=== PATIENT | female | born 1975 ===

== ENCOUNTER 2022-04-24 07:25 | Outpatient (REF) | payer OTHER, SELFPAY ==
[2022-04-24 07:39] LABS: MANUAL DIFF FLAG NO
[2022-04-24 08:06] LABS: Basophils Absolute Auto 0.1 X10*3/uL (0.0-0.2); Basophils Percent Auto 1.2 % (0-2); Eosinophils Absolute Auto 0.2 X10*3/uL (0.0-0.4); Hematocrit 40.8 % (37.0-47.0); Hemoglobin 12.8 g/dl (12.0-16.0); Imm Gran Abs Auto 0.03 X10*3/uL (0.00-0.03); Imm Gran Pct Auto 0.4 % (0.0-0.4); Lymphocytes Absolute Auto 2.2 X10*3/uL (1.2-4.9); Lymphocytes Percent Auto 29.7 % (20-40); Mean Corpuscular HGB Conc 31.4 g/dl (31.0-35.0); Mean Corpuscular Hemoglobin 24.8 pg (27.0-33.0); Mean Corpuscular Volume 78.9 fL (80.0-98.0); Mean Platelet Volume 11.1 fL (9.4-12.3); Monocytes Absolute Auto 0.5 X10*3/uL (0.1-1.2); Monocytes Percent Auto 6.7 % (2-11); Neutrophils Absolute Auto 4.4 x10*3/uL (2.0-8.3); Platelet Count 314 X10*3/uL (160-400); Red Blood Count 5.17 X10*6/uL (4.20-5.50); Red Cell Distribution Width 20.6 % (11.0-16.0); White Blood Count 7.4 X10*3/uL (4.8-10.8)
[2022-04-24 09:03] LABS: Alanine Aminotransferase 16 U/L (0-31); Albumin Level 4.2 g/dL (3.5-5.0); Alkaline Phosphatase 72 U/L (39-117); Anion Gap 11 (12-20); Aspartate Amino Transferase 14 U/L (5-31); Bilirubin Total 0.4 mg/dL (0.0-1.0); Blood Urea Nitrogen 14 mg/dL (9-16); Calcium 9.6 mg/dL (8.4-10.2); Carbon Dioxide 24 mmol/L (22-29); Chloride 107 mmol/L (96-108); Cholesterol 156 mg/dL; Estimated Glomerular Filt Rate > 60; Glucose Fasting 104 mg/dL (60-99); HDL Cholesterol 47 mg/dL; Iron 47 mcg/dL (30-160); LDL Cholesterol Calculated 93 mg/dl; Percent Iron Saturation 16 % (15-50); Potassium 4.4 mmol/L (3.3-5.1); Sodium 138 mmol/L (135-145); Thyroid Stimulating Hormone 0.75 uIU/mL (0.32-4.0); Total Iron Binding Capacity 302 mcg/dL (228-428); Total Protein 7.1 g/dL (6.5-8.0); Triglycerides 83 mg/dL; Unsaturated Iron Binding 255 ug/dL; Vitamin D 25-OH Total 26.8 ng/mL (>30)
[2022-04-24 09:18] LABS: Folate 10.4 ng/mL (> or = 4.0); Vitamin B12 411 pg/mL (200-900)
[2022-04-28 18:58] LABS: Thyroglobulin Antibodies 370 IU/mL (< or = 1); Thyroid Peroxidase Antibodies 30 IU/mL (<9)
[2022-04-30 00:38] LABS: Intrinsic Factor Antibodies Positive (Negative)
[2022-04-30 13:32] LABS: Parietal Cell Antibody 72.5 Unit (<=20.0)
== END 2022-04-24 07:26 | disposition home or self-care (01) ==
LOC: HO.LAB 07:25
PROVIDERS: PCP Internal Medicine; Visit Provider Internal Medicine
DX: E66.9 Obesity, unspecified (principal); D50.9 Iron deficiency anemia, unspecified; E03.9 Hypothyroidism, unspecified; G47.00 Insomnia, unspecified; E53.8 Deficiency of other specified B group vitamins; E55.9 Vitamin D deficiency, unspecified
CPT/HCPCS: 36415; 80053; 80061; 82306; 82607; 82746; 83516; 83540; 84439; 84443; 85025; 86340; 86376; 86800

== ENCOUNTER 2022-07-29 13:53 | Outpatient (REF) | payer OTHER, SELFPAY ==
--- NOTE | ~2022-07-29 | US_ITS ---
EXAMINATION: US THYROID CLINICAL INFORMATION: Nontoxic goiter, unspecified. COMPARISON: None available. TECHNIQUE: Linear transducer grayscale and color Doppler examination with attention to the region of the thyroid. FINDINGS: SIZE: Measurements of the thyroid lobes and nodules are given in sagittal, anteroposterior and transverse dimensions respectively. Right Thyroid Lobe: 3.0 x 0.9 x 0.9 cm, volume 1.3 mL. Parenchyma: The gland echotexture is heterogeneous. Thyroid vascularity is normal. Left Thyroid Lobe: 2.6 x 0.8 x 1.1 cm, volume 1.2 mL. Parenchyma: The gland echotexture is heterogeneous. Thyroid vascularity is normal. Isthmus: 0.01 cm in maximum AP dimension. Nodules: No focal thyroid nodule is seen. NODES: No lymphadenopathy is seen in the tissue surrounding the thyroid gland. US/US thyroid IMPRESSION: Atrophic thyroid gland demonstrating heterogeneous echotexture but normal vascularity. No discrete thyroid nodules visualized.
== END 2022-07-29 13:54 | disposition home or self-care (01) ==
LOC: HO.US 13:53
PROVIDERS: PCP Internal Medicine; Visit Provider Internal Medicine
DX: E04.9 Nontoxic goiter, unspecified (principal)
CPT/HCPCS: 76536

== ENCOUNTER 2022-08-15 06:48 | Outpatient (REF) | payer OTHER, SELFPAY ==
--- NOTE | ~2022-08-15 | XR_ITS ---
EXAMINATION: XR CERVICAL SPINE CLINICAL INFORMATION: Neck pain COMPARISON: None available. TECHNIQUE: 3 views of the cervical spine were obtained. FINDINGS: Bone alignment is normal. No fracture or dislocation. Mild degenerative spondylosis and degenerative disc disease at C5-C6. Prevertebral soft tissues are normal. XR/XR cervical spine 2V IMPRESSION: Mild degenerative changes at C5-C6.
== END 2022-08-15 06:49 | disposition home or self-care (01) ==
LOC: HO.XRAY 06:48
PROVIDERS: PCP Internal Medicine; Visit Provider Internal Medicine
DX: M54.2 Cervicalgia (principal)
CPT/HCPCS: 72040

== ENCOUNTER 2022-08-20 08:05 | Outpatient (REF) | payer OTHER, SELFPAY ==
[2022-08-20 09:45] LABS: Folate 6.3 ng/mL (> or = 4.0); Thyroid Stimulating Hormone 0.49 uIU/mL (0.32-4.0); Vitamin B12 439 pg/mL (200-900)
== END 2022-08-20 08:06 | disposition home or self-care (01) ==
LOC: HO.LAB 08:05
PROVIDERS: PCP Internal Medicine; Visit Provider Internal Medicine
DX: E03.9 Hypothyroidism, unspecified (principal); E53.8 Deficiency of other specified B group vitamins
CPT/HCPCS: 36415; 82607; 82746; 84443

== ENCOUNTER 2022-11-26 16:31 | Outpatient (AMB) | payer OTHER, SELFPAY ==
--- NOTE | 2022-11-26 16:32 | MHC.PC.OV ---
Vital Signs 11/26/22 16:33 Height 5 ft 5.75 in Weight 218 lb BMI 35.5 BP 120/86 Blood Pressure Location Lt brachial Position Sitting Intake Visit Reasons: elevated BP Intake Note: Patient here for follow up elevated bp Endocrinology Teacher Required: No Accompanied by: Self / Same As Patient Allergies morphine Adverse Reaction (Severe, Verified 11/26/22 16:35) Rash levothyroxine Adverse Reaction (Intermediate, Verified 11/26/22 16:35) Headache Medication List - Last Reconciled 11/26/22 by Mily Gordon MD albuterol sulfate 90 mcg/actuation 0 mcg inhalation aripiprazole 10 mg PO DAILY 90 days blood pressure monitor As directed buspirone 15 mg PO TID cholecalciferol (vitamin D3) (Vitamin D3) 50 mcg PO DAILY clobetasol 0.05% 1 appl topical DAILY 30 days cyanocobalamin (vitamin B-12) 1,000 mcg IM Q4W 30 days diclofenac sodium 1% 2 grams topical BID hydroxyzine HCl 25 mg PO BEDTIME levothyroxine (Synthroid) 0 mcg PO loratadine 10 mg PO DAILY losartan 25 mg PO DAILY 90 days meclizine 25 mg PO TID naproxen 500 mg PO BID PRN [neck pillow As directed] sertraline 100 mg PO BID sumatriptan succinate 0 mg PO DIRECTED syringe with needle ([employer] Luer Lock Syringe with needle) Use 1 needle once a month underpads (Bed Underpads) As directed Tobacco use date assessed: 05/29/22 Dental Screening Dental Screen Date: 11/26/22 Did you have a dental visit in the last 12 months?: Yes Did you have a dental problem in the last 6 months where you did not have access to dental care?: No Was dental information given to patient?: Patient has dentist HPI HPI Comments History of Present Illness Details This is a 47-year-old female with hypertension, hypothyroidism, mild major depression and low vitamin-D that comes today for follow-up on her conditions. Blood pressure stable TSH will be order for next office visit. Depression well controlled with Abilify. Vitamin-D levels will be check for next office visit. Complains of lumbar pain radiating to the legs. No fever, bowel or bladder incontinence. [facility] Surgical History History of History of cholecystectomy Family History Mother Lung cancer Father Hypercholesteremia Kidney stone Renal failure Family/Other Mental health disorder Social History Housing: House Alcohol intake: never Patient Tobacco Use Status: Never used Tobacco e-Cigarette/Vaping Use: Never Used Second Hand Smoke Exposure: No service: No Current occupational status: unemployed Cognitive needs: No Hearing needs: No Vision needs: Yes Questionnaire Thrive Questionnaire Date Thrive assessed: 05/29/22 MANDY-7 AMB Questionnaire MANDY-7 Date MANDY - 7 assessed: 05/29/22 Source: Developed by Drs. Wilton Caruso, Juliane Sneed, Stefan Ambrose and colleagues, with an educational shawna from [employer]. Review of Systems Const All systems reviewed & are unremarkable except as noted in HPI and below Eyes Reports no additional complaints, Denies change in vision and Denies other visual disturbances Card Denies chest pain at rest, Denies chest pain with activity, Denies edema, Denies irregular heart rhythm, Denies claudication, Denies dyspnea, Denies dyspnea on exertion, Denies orthopnea, Denies paroxysmal nocturnal dyspnea and Denies slow heart rate Resp Denies cough, Denies dyspnea and Denies dyspnea on exertion GI Denies abdominal pain, Denies change in bowel habits, Denies excessive flatus, Denies nausea and Denies vomiting Denies urinary incontinence, Denies urinary hesitancy and Denies urinary urgency Musc Denies abnormal gait, Denies atrophy, Denies deformity and Denies limited range of motion Skin/Breast Denies bleeding lesions, Denies changing lesions and Denies rash Neuro Denies abnormal gait and Denies lack of coordination Physical exam (Primary Care) Vital Signs: Last Vital Signs BP 120/86 11/26/22 16:33 BMI result Body Mass Index 35.5 Tobacco/Smoking Status: Tobacco use Status Tobacco use date assessed 05/29/22 11/26/22 16:39 Patient Tobacco Use Status Never used Tobacco 11/26/22 16:39 e-Cigarette/Vaping Use Never Used 11/26/22 16:39 Thrive Assessment: Date of Thrive Assessment Date Thrive assessed 05/29/22 11/26/22 16:39 Eyes General: appearance normal, both eyes and all related structures Eyelids: Yes eyelids normal Conjunctivae: conjunctivae normal Neck Neck: Yes normal visual inspection and Yes supple Resp Effort & Inspection: normal respiratory effort Auscultation: clear to auscultation bilaterally Cardio Jugular venous distension: no JVD Rate: regular rate Rhythm: regular rhythm Heart sounds: S1 normal heart sound present and S2 normal heart sound present Back/Spine/Pelvis Thoracic/Lumbar Spine: straight leg raise positive Extrem General: Yes full ROM Assessment and Plan Assessment & Plan (1) Essential hypertension: Code(s): I10 - Essential (primary) hypertension Plan: Continue losartan. Blood pressure goal is equal or less than 130/80. (2) Mild recurrent major depression: Code(s): F33.0 - Major depressive disorder, recurrent, mild Plan: Continue Abilify. (3) Hypothyroidism: Comment: [facility] Endocrinology Code(s): E03.9 - Hypothyroidism, unspecified Plan: Continue levothyroxine. (4) Hypovitaminosis D: Code(s): E55.9 - Vitamin D deficiency, unspecified Plan: Continue vitamin-D supplement Orders: Orders Complete Blood Count Auto Diff Today D64.9 - Anemia, unspecified IRON PROFILE Today D64.9 - Anemia, unspecified Vitamin D 25-OH Total Today E55.9 - Vitamin D deficiency, unspecified Vitamin B12 and Folate Today E53.8 - Deficiency of other specified B group vitamins Thyroid Stimulating Hormone Today E03.9 - Hypothyroidism, unspecified Medications: Changed From meclizine 25 mg PO TID To meclizine 25 mg PO TID 30 days 90 tabs 0RF Refilled cyanocobalamin (vitamin B-12) 1,000 mcg IM Q4W 30 days 1 mL 6RF syringe with needle ([employer] Luer Lock Syringe with needle) Use 1 needle once a month 1 ea 6RF D51.0 - Vitamin B12 deficiency anemia due to intrinsic factor deficiency underpads (Bed Underpads) As directed 100 ea 0RF R32 - Unspecified urinary incontinence Coding Level of Care Code Est Pt Level 4 (42757) Diagnoses Essential hypertension I10 Mild recurrent major depression F33.0 Hypothyroidism E03.9 Hypovitaminosis D E55.9 Time Spent (min) 22
[2022-11-26 16:33] VITALS: BP 120/86; BMI 35.5
== END 2022-11-26 16:53 | disposition home or self-care (01) ==
PROVIDERS: PCP Internal Medicine; Visit Provider Internal Medicine
DX: I10 Essential (primary) hypertension (principal); F33.0 Major depressive disorder, recurrent, mild; E03.9 Hypothyroidism, unspecified; E55.9 Vitamin D deficiency, unspecified
CPT/HCPCS: 99214

== ENCOUNTER 2022-12-04 08:21 | Outpatient (AMB) | payer OTHER, SELFPAY ==
--- NOTE | 2022-12-04 08:26 | AM.OFFVISNUR ---
Intake Intake Visit Reasons: B12 Allergies morphine Adverse Reaction (Severe, Verified 11/26/22 16:35) Rash levothyroxine Adverse Reaction (Intermediate, Verified 11/26/22 16:35) Headache Office Meds cyanocobalamin (vitamin B-12) Performing Provider: Mily Gordon MD Administered by: Jacquelyn Hubbard RN on 12/04/22 08:32 Dose Route Admin Location Lot Number Expiration Date [employer] Vapor Coater 1,000 mcg IM [id number] 05/09/25 47055-691-78 DARIANA PAYNE Coding Diagnoses Assessment & Plan Assessment & Plan Orders: Orders AMB Vitamin B12 Injection Patient Supplied Today E53.8 - Deficiency of other specified B group vitamins
== END 2022-12-04 08:31 | disposition home or self-care (01) ==
PROVIDERS: PCP Internal Medicine; Visit Provider Internal Medicine
DX: E53.8 Deficiency of other specified B group vitamins (principal)
CPT/HCPCS: 96372; J3420

== ENCOUNTER 2022-12-04 08:37 | Outpatient (REF) | payer OTHER, SELFPAY ==
--- NOTE | ~2022-12-04 | XR_ITS ---
EXAMINATION: XR LUMBOSACRAL SPINE CLINICAL INFORMATION: Low back pain COMPARISON: None available. TECHNIQUE: Three views of the lumbosacral spine. FINDINGS: Lumbar lordotic straightening. Multilevel spurring. 5 lumbar type vertebral bodies are identified and are maintained in height. Pedicles and SI joints within normal limits. Cholecystectomy clips. XR/XR lumbar spine 2-3V IMPRESSION: Lumbar lordotic straightening and mild degenerative changes.
== END 2022-12-04 08:38 | disposition home or self-care (01) ==
LOC: HO.XRAY 08:37
PROVIDERS: PCP Internal Medicine; Visit Provider Internal Medicine
DX: M54.50 Low back pain, unspecified (principal)
CPT/HCPCS: 72100

== ENCOUNTER 2022-12-18 08:50 | Outpatient (REF) | payer OTHER, SELFPAY ==
--- NOTE | ~2022-12-18 | XR_ITS ---
EXAMINATION: XR BILATERAL KNEES CLINICAL INFORMATION: Reason for Exam M25.562 - Pain in left knee COMPARISON: None TECHNIQUE: 2 views of the bilateral knees FINDINGS: RIGHT KNEE: No acute fracture or dislocation. Joint spaces are maintained. Small suprapatellar joint effusion. Soft tissues are unremarkable. LEFT KNEE: No acute fracture or dislocation. Joint spaces are maintained. Small suprapatellar joint effusion. Soft tissues are unremarkable. XR/XR knee RT 2V IMPRESSION: * No acute osseous abnormality. * Small bilateral suprapatellar effusions.
--- NOTE | ~2022-12-18 | XR_ITS ---
EXAMINATION: XR BILATERAL KNEES CLINICAL INFORMATION: Reason for Exam M25.562 - Pain in left knee COMPARISON: None TECHNIQUE: 2 views of the bilateral knees FINDINGS: RIGHT KNEE: No acute fracture or dislocation. Joint spaces are maintained. Small suprapatellar joint effusion. Soft tissues are unremarkable. LEFT KNEE: No acute fracture or dislocation. Joint spaces are maintained. Small suprapatellar joint effusion. Soft tissues are unremarkable. XR/XR knee LT 2V IMPRESSION: * No acute osseous abnormality. * Small bilateral suprapatellar effusions.
== END 2022-12-18 08:51 | disposition home or self-care (01) ==
LOC: HO.XRAY 08:50
PROVIDERS: PCP Internal Medicine; Visit Provider Internal Medicine
DX: M25.562 Pain in left knee (principal); M25.561 Pain in right knee
CPT/HCPCS: 73560

== ENCOUNTER 2023-01-05 08:32 | Outpatient (AMB) | payer OTHER, SELFPAY ==
--- NOTE | 2023-01-05 09:13 | AM.OFFVISNUR ---
Intake Intake Visit Reasons: B12 Shot Allergies morphine Adverse Reaction (Severe, Verified 11/26/22 16:35) Rash levothyroxine Adverse Reaction (Intermediate, Verified 11/26/22 16:35) Headache Office Meds cyanocobalamin (vitamin B-12) Performing Provider: Mily Gordon MD Administered by: Tami Hernandes RN on 01/05/23 09:20 Dose Route Admin Location Lot Number Expiration Date NDC Panel Machine Operator 1,000 mcg IM right deltoid [id number] 05/10/25 29539-422-77 DARIANA PAYNE Coding Diagnoses Assessment & Plan Assessment & Plan Orders: Orders AMB Vitamin B12 Injection Patient Supplied Today E53.8 - Deficiency of other specified B group vitamins
== END 2023-01-05 09:21 | disposition home or self-care (01) ==
PROVIDERS: PCP Internal Medicine; Visit Provider Internal Medicine
DX: E53.8 Deficiency of other specified B group vitamins (principal)
CPT/HCPCS: 96372; J3420

== ENCOUNTER 2023-02-03 08:08 | Outpatient (AMB) | payer OTHER, SELFPAY ==
--- NOTE | 2023-02-03 08:12 | AM.OFFVISNUR ---
Intake Intake Visit Reasons: B12 Shot Allergies morphine Adverse Reaction (Severe, Verified 11/26/22 16:35) Rash levothyroxine Adverse Reaction (Intermediate, Verified 11/26/22 16:35) Headache Office Meds cyanocobalamin (vitamin B-12) 1,000 mcg/mL injection solution Performing Provider: Mily Gordon MD [facility] Administered by: Jacquelyn Hubbard RN on 02/03/23 08:12 Dose Route Admin Location Dispensed Lot Number Expiration Date [facility] Dual Rate Dealer 1,000 mcg IM right deltoid 1 mL [id number] 04/29/25 25937-005-06 DAIRANA PAYNE Coding Assessment & Plan Assessment & Plan Orders: Orders AMB Vitamin B12 Injection Patient Supplied Today E53.8 - Deficiency of other specified B group vitamins
== END 2023-02-03 08:19 | disposition home or self-care (01) ==
PROVIDERS: PCP Internal Medicine; Visit Provider Internal Medicine
DX: E53.8 Deficiency of other specified B group vitamins (principal)
CPT/HCPCS: 96372; J3420

== ENCOUNTER 2023-02-17 08:48 | Outpatient (REF) | payer OTHER, SELFPAY | END 2023-02-17 08:49 | disposition home or self-care (01) | LOC: HO.LAB 08:48 | PROVIDERS: PCP Internal Medicine; Visit Provider Internal Medicine | DX: E53.8 Deficiency of other specified B group vitamins (principal); D64.9 Anemia, unspecified; E03.9 Hypothyroidism, unspecified; E55.9 Vitamin D deficiency, unspecified | CPT/HCPCS: 36415; 82306; 82607; 82746; 83540; 84443; 85025 ==

== ENCOUNTER 2023-02-24 07:49 | Outpatient (AMB) | payer OTHER, SELFPAY ==
[2023-02-24 07:54] VITALS: BP 122/80; PULSE 63; O2SAT 98; BMI 35.6
--- NOTE | 2023-02-24 07:54 | MHC.PC.OV ---
Vital Signs 02/24/23 07:54 Height 5 ft 5.75 in Weight 219 lb BMI 35.6 BP 122/80 Blood Pressure Location Lt brachial Position Sitting Pulse 63 Pulse Source Pulse Oximeter Pulse Oximetry (%) 98 Oxygen Delivery Method Room Air Intake Visit Reasons: thyroid,vitamin b12 Intake Note: patient here for a follow up thyroid, vitamin b12 Hay Sorter Required: No Accompanied by: Self / Same As Patient Allergies morphine Adverse Reaction (Severe, Verified 02/24/23 07:56) Rash levothyroxine Adverse Reaction (Intermediate, Verified 02/24/23 07:56) Headache Medication List - Last Reconciled 02/24/23 by Mily Gordon MD albuterol sulfate 90 mcg/actuation 0 mcg inhalation aripiprazole 10 mg PO DAILY 90 days blood pressure monitor As directed buspirone 15 mg PO TID cholecalciferol (vitamin D3) (Vitamin D3) 50 mcg PO DAILY cyanocobalamin (vitamin B-12) 1,000 mcg IM Q4W 30 days diclofenac sodium 1% 2 grams topical BID hydroxyzine HCl 25 mg PO BEDTIME levothyroxine (Synthroid) 0 mcg PO loratadine 10 mg PO DAILY losartan 25 mg PO DAILY 90 days meclizine 25 mg PO TID 30 days naproxen 500 mg PO BID PRN [neck pillow As directed] sertraline 100 mg PO BID sumatriptan succinate 0 mg PO DIRECTED syringe with needle ([employer] Luer Lock Syringe with needle) Use 1 needle once a month underpads (Bed Underpads) As directed Tobacco use date assessed: 05/29/22 Dental Screening Dental Screen Date: 02/24/23 Did you have a dental visit in the last 12 months?: Yes Did you have a dental problem in the last 6 months where you did not have access to dental care?: No Was dental information given to patient?: Patient has dentist HPI HPI Comments History of Present Illness Details This is a 47-year-old female with hypertension, mild major depression, pernicious anemia and autoimmune thyroiditis that comes today for follow-up on her conditions. Blood pressure stable. Depression well controlled with SSRIs. Vitamin B12 within normal limits on B12 injections due to her pernicious anemia. TSH also normal. She denies any chest pain or shortness of breath. Complains of neck pain and the pillow that was sent did not solve her problem. Will be referred to rheumatology. [facility] Surgical History History of cholecystectomy History of Family History Mother Lung cancer Father Hypercholesteremia Kidney stone Renal failure Family/Other Mental health disorder Social History Housing: House Alcohol intake: never Patient Tobacco Use Status: Never used Tobacco e-Cigarette/Vaping Use: Never Used Second Hand Smoke Exposure: No service: No Current occupational status: unemployed Cognitive needs: No Hearing needs: No Vision needs: Yes Questionnaire Thrive Questionnaire Date Thrive assessed: 05/29/22 MANDY-7 AMB Questionnaire MANDY-7 Date MANDY - 7 assessed: 05/29/22 Source: Developed by Drs. Wilton Caruso, Juliane Sneed, Stefan Ambrose and colleagues, with an educational shawna from [employer]. Review of Systems Const All systems reviewed & are unremarkable except as noted in HPI and below Eyes Reports no additional complaints, Denies change in vision and Denies other visual disturbances ENT Reports neck pain Card Denies chest pain at rest, Denies chest pain with activity, Denies edema, Denies irregular heart rhythm, Denies claudication, Denies dyspnea, Denies dyspnea on exertion, Denies orthopnea, Denies paroxysmal nocturnal dyspnea and Denies slow heart rate Resp Denies cough, Denies dyspnea and Denies dyspnea on exertion GI Denies abdominal pain, Denies change in bowel habits, Denies excessive flatus, Denies nausea and Denies vomiting Denies urinary incontinence, Denies urinary hesitancy and Denies urinary urgency Musc Denies abnormal gait, Reports back pain, Denies atrophy, Denies deformity, Denies limited range of motion and Reports neck pain Skin/Breast Denies bleeding lesions, Denies changing lesions and Denies rash Neuro Denies abnormal gait and Denies lack of coordination Physical exam (Primary Care) Vital Signs: Last Vital Signs Pulse 63 02/24/23 07:54 BP 122/80 02/24/23 07:54 Pulse Ox 98 02/24/23 07:54 Oxygen Delivery Method Room Air 02/24/23 07:54 BMI result Body Mass Index 35.6 Tobacco/Smoking Status: Tobacco use Status Tobacco use date assessed 05/29/22 02/24/23 07:59 Patient Tobacco Use Status Never used Tobacco 02/24/23 07:59 e-Cigarette/Vaping Use Never Used 02/24/23 07:59 Thrive Assessment: Date of Thrive Assessment Date Thrive assessed 05/29/22 02/24/23 07:59 Eyes General: appearance normal, both eyes and all related structures Eyelids: Yes eyelids normal Conjunctivae: conjunctivae normal Neck Neck: Yes normal visual inspection and Yes supple Resp Effort & Inspection: normal respiratory effort Auscultation: clear to auscultation bilaterally Cardio Jugular venous distension: no JVD Rate: regular rate Rhythm: regular rhythm Heart sounds: S1 normal heart sound present and S2 normal heart sound present Extrem General: Yes full ROM Office Procedures Flu Questionnaire Does the patient have a severe egg allergy?: No Does the patient have severe life threatening allergies?: No Does the patient have a fever or illness today?: No Has the patient ever had Guillain-Wellington Syndrome?: No Has the patient ever had any past reaction to a flu shot?: No Immunizations flu vacc [id number] 6mos up(PF) 60 mcg(15 mcgx4)/0.5 mL IM syringe Performing Provider: Mily Gordon MD [facility] Administered by: BEKAH Amador on 02/24/23 08:31 Dose Route Admin Location Dispensed Lot Number Expiration Date NDC Boarding Mother 0.5 mL IM Right Deltoid 0.5 mL [id number] 11/08/23 23175-510-42 [employer] VIS Given Date VIS Provided VIS Publication Date 02/24/23 Single Vaccine 20 Eligibility Eligibility Date Funding Source Not [facility] Eligible 02/24/23 Private Assessment and Plan Assessment & Plan (1) Essential hypertension: Code(s): I10 - Essential (primary) hypertension Plan: Continue losartan. Blood pressure goal is equal or less than 130/80. (2) Mild recurrent major depression: Code(s): F33.0 - Major depressive disorder, recurrent, mild Plan: Continue SSRIs (3) Pernicious anemia: Code(s): D51.0 - Vitamin B12 deficiency anemia due to intrinsic factor deficiency Plan: Continue vitamin B12 injections. (4) Autoimmune thyroiditis: Code(s): E06.3 - Autoimmune thyroiditis Plan: Continue Synthroid. Orders: Orders Influenza [id number] Immunization Today Z23 - Encounter for immunization Referrals Rheumatology Referral M54.2 - Cervicalgia Allergy & Immunology Referral J30.9 - Allergic rhinitis, unspecified Medications: Changed From diclofenac sodium 1% 2 grams topical BID To diclofenac sodium 1% 2 grams topical BID 100 grams 1RF 30 days From levothyroxine (Synthroid) PO To levothyroxine (Synthroid) 150 mcg PO DAILY 30 tabs 1RF 30 days Refilled cyanocobalamin (vitamin B-12) 1,000 mcg IM Q4W 1 mL 6RF 30 days Coding Level of Care Code Est Pt Level 4 (75265) Diagnoses Essential hypertension I10 Mild recurrent major depression F33.0 Pernicious anemia D51.0 Autoimmune thyroiditis E06.3 Time Spent (min) 24
== END 2023-02-24 09:04 | disposition home or self-care (01) ==
PROVIDERS: Visit Provider Internal Medicine
DX: I10 Essential (primary) hypertension (principal); F33.0 Major depressive disorder, recurrent, mild; D51.0 Vitamin B12 deficiency anemia due to intrinsic factor deficiency; E06.3 Autoimmune thyroiditis; Z23 Encounter for immunization
CPT/HCPCS: 90471; 90686; 99214

== ENCOUNTER 2023-03-05 08:12 | Outpatient (AMB) | payer OTHER, SELFPAY ==
--- NOTE | 2023-03-05 08:45 | AM.OFFVISNUR ---
Intake Intake Visit Reasons: B-12 shot Allergies morphine Adverse Reaction (Severe, Verified 02/24/23 07:56) Rash levothyroxine Adverse Reaction (Intermediate, Verified 02/24/23 07:56) Headache Office Meds cyanocobalamin (vitamin B-12) 1,000 mcg/mL injection solution Performing Provider: Mily Gordon MD Performing Location: [facility] Administered by: Tami Hernandes RN on 03/05/23 08:45 Dose Route Admin Location Dispensed Lot Number Expiration Date [facility] Rib Builder 1,000 mcg IM right deltoid 1 mL [id number] 05/09/25 20336-898-04 DARIANA PAYNE Coding Assessment & Plan Assessment & Plan Orders: Orders AMB Vitamin B12 Injection Patient Supplied Today D51.9 - Vitamin B12 deficiency anemia, unspecified
== END 2023-03-05 08:46 | disposition home or self-care (01) ==
PROVIDERS: PCP Internal Medicine; Visit Provider Internal Medicine
DX: D51.9 Vitamin B12 deficiency anemia, unspecified (principal)
CPT/HCPCS: 96372; J3420

== ENCOUNTER 2023-03-09 12:34 | Outpatient (AMB) | payer OTHER, SELFPAY ==
--- NOTE | 2023-03-09 12:51 | MHC.OFFVIS ---
Intake Vital Signs 03/09/23 12:52 Height 5 ft 5.75 in Weight 219 lb 2.232 oz BMI 35.6 BP 110/70 Blood Pressure Location Rt radial Position Sitting Pulse 58 Pulse Source Pulse Oximeter Temp 97.4 F Temp Source Skin Pulse Oximetry (%) 98 Oxygen Delivery Method Room Air Intake Visit Reasons: Cervicalgia Intake Note: New patient here today referred to us for neck pain. Injection Mold Technician Required: Yes Injection Mold Technician Language: Receiving And Processing Supervisor Name: Guy [id number] Information Interpreted: clinical only Accompanied by: Self / Same As Patient Allergies morphine Adverse Reaction (Severe, Verified 03/09/23 12:54) Rash levothyroxine Adverse Reaction (Intermediate, Verified 03/09/23 12:54) Headache HPI HPI Comments History of Present Illness Details This is a 47-year-old female with medical history of hypertension, mild major depression, pernicious anemia and autoimmune thyroiditis, presents today for evaluation of neck and right shoulder pain. Patient is not able to say what are the associated factors with onset but she has had the pain for at least 1 year. The pain is improved by Tylenol and Naproxen. She has been using a pillow at night, recommended by PCP but it often makes her pain worse. Patient denies other joint pain except for right knee pain. Xrays of her neck, lower back and knee were done. Patient denies Raynaud's phenomenon, butterfly rash on face or other rashes; denies photosensitivity - getting sick or developing a rash from being out in the sun; denies blood or froth in urine; patient denies hx of SOB, chest pain. Patient denies hx of Carditis or Pleuritis. Denies fevers, excessive fatigue, unexplained weight-loss or weight-gain. Denies: thinning hair or hair loss, hx of rashes; Denies: dry, itchy eyes, red burning eyes needing steroids to treat; dry mouth, mouth sores or ulcers; nose bleed; ringing in the ear, Denies abdominal pain, blood or mucous in stool; nausea, vomiting and diarrhea , difficulty swallowing, heartburn. Denies morning stiffness lasting more than 20 mins. Malignancy screening: denies personal cancer hx. [facility] Medical History (Updated 03/09/23 @ 14:35 by JENARO Louis) Obesity (BMI 30-39.9) Degenerative disc disease, lumbar Osteoarthritis involving multiple joints on both sides of body Trapezius muscle strain Shoulder pain, right Surgical History (Updated 03/09/23 @ 12:56 by BEKAH Sepulveda) History of cholecystectomy History of Family History Mother Lung cancer Father Hypercholesteremia Kidney stone Renal failure Family/Other Mental health disorder Sister Lupus Social History (Updated 03/09/23 @ 12:55 by BEKAH Sepulveda) Household Members: Spouse and Children Housing: House Alcohol intake: never Patient Tobacco Use Status: Never used Tobacco e-Cigarette/Vaping Use: Never Used Second Hand Smoke Exposure: No service: No Current occupational status: unemployed and disabled Cognitive needs: No Hearing needs: No Vision needs: Yes Female Reproductive History Menstrual Total pregnancies: 3 Review of Systems Const All systems reviewed & are unremarkable except as noted in HPI and below Physical Exam Vital Signs: Last Vital Signs Temp 97.4 F 03/09/23 12:52 Pulse 58 03/09/23 12:52 BP 110/70 03/09/23 12:52 Pulse Ox 98 03/09/23 12:52 Oxygen Delivery Method Room Air 03/09/23 12:52 BMI result Body Mass Index 35.6 APPEARANCE: Patient in no acute distress EYES no redness, pupils equal and reactive to light, eyelids normal EARS:? External ear normal, canal clear and tympanic membrane normal. NOSE/SINUS:? Airflow through both nares, no nasal discharge, no bleeding THROAT:? Oral mucosa moist, no ulcerations NECK:? No thyromegaly or masses, no adenopathy, trachea midline. HEART:? Regulrar rhythm, S1-S2 heard, no murmurs, rubs or gallops. LUNG:? Clear to percussion and auscultation ABD:? Normal bowel sounds, no organomegaly, masses or tenderness. EXTREMITIES:? No edema, no calf tenderness, normal peripheral pulses. NEURO:? Oriented and alert x3.? No focal weakness.? Reflexes symmetric.? Gait normal. SKIN:? There are no skin lesions evident. No objective signs of Raynaud's phenomenon. JOINT EXAM: Cervical Spine/Neck:.? Full range of motion with mild pain to left trapezius muslce with right lateral flexion. Mild tenderness with palpation to left trapezius muscle extending up pass the nape. Thoracic Spine:.? No scoliosis.? No tenderness on palpation. Lumbar Spine:.? Alignment normal.? Full range of motion without pain, no tenderness. Chest Wall:.? No tenderness, swelling, increased warmth or erythema. Hands:.? Normal pain-free range of motion without tenderness, swelling, increased warmth or erythema. Able to make a full fist and has a good construction representative strength. Wrists:.? Normal pain-free range of motion without tenderness, swelling, increased warmth or erythema. Elbows:. Normal pain-free range of motion without tenderness, swelling, increased warmth or erythema. Shoulders:.?? Full range of motion. mild pain to right side with full flexion, mild tenderness with palpation to trapezius at mid shoulder blade, but no weakness, swelling, increased warmth or erythema. Hips:.? Full range of motion without pain. Hip bursa:.? No tenderness. Knees:.?? Normal range of motion without, swelling, increased warmth or erythema.? There is no effusion or crepitation. Mild tenderness to right pas anserine bursa. Ankles:.? Normal pain-free range of motion without tenderness, swelling, increased warmth or erythema. Feet:.? Normal pain-free range of motion without tenderness, swelling, increased warmth or erythema. Tender points:? No tenderness to digital palpation at the occiput, second rib, lateral epicondyle, knees, greater trochanter and gluteal area bilaterally. Results Reviewed Results Reviewed: Laboratory Tests 02/17/23 09:12 MCH 26.1 L Abs Immat Gran (auto) 0.05 H EXAMINATION: XR BILATERAL KNEES CLINICAL INFORMATION: Reason for Exam M25.562 - Pain in left knee COMPARISON: None TECHNIQUE: 2 views of the bilateral knees FINDINGS: RIGHT KNEE: No acute fracture or dislocation. Joint spaces are maintained. Small suprapatellar joint effusion. Soft tissues are unremarkable. LEFT KNEE: No acute fracture or dislocation. Joint spaces are maintained. Small suprapatellar joint effusion. Soft tissues are unremarkable. XR/XR knee LT 2V IMPRESSION: * No acute osseous abnormality. * Small bilateral suprapatellar effusions. EXAMINATION: XR LUMBOSACRAL SPINE CLINICAL INFORMATION: Low back pain COMPARISON: None available. TECHNIQUE: Three views of the lumbosacral spine. FINDINGS: Lumbar lordotic straightening. Multilevel spurring. 5 lumbar type vertebral bodies are identified and are maintained in height. Pedicles and SI joints within normal limits. Cholecystectomy clips. XR/XR lumbar spine 2-3V IMPRESSION: Lumbar lordotic straightening and mild degenerative changes. EXAMINATION: XR CERVICAL SPINE CLINICAL INFORMATION: Neck pain COMPARISON: None available. TECHNIQUE: 3 views of the cervical spine were obtained. FINDINGS: Bone alignment is normal. No fracture or dislocation. Mild degenerative spondylosis and degenerative disc disease at C5-C6. Prevertebral soft tissues are normal. XR/XR cervical spine 2V IMPRESSION: Mild degenerative changes at C5-C6. Assessment & Plan Assessment & Plan (1) Neck pain: Code(s): M54.2 - Cervicalgia (2) Shoulder pain, right: Code(s): M25.511 - Pain in right shoulder Qualifiers: Chronicity: chronic Qualified Code(s): M25.511 - Pain in right shoulder; G89.29 - Other chronic pain (3) Trapezius muscle strain: Code(s): S46.819A - Strain of other muscles, fascia and tendons at shoulder and upper arm level, unspecified arm, initial encounter Qualifiers: Encounter type: initial encounter Laterality: left Qualified Code(s): S46.812A - Strain of other muscles, fascia and tendons at shoulder and upper arm level, left arm, initial encounter (4) Osteoarthritis involving multiple joints on both sides of body: Code(s): M15.9 - Polyosteoarthritis, unspecified (5) Degenerative disc disease, lumbar: Code(s): M51.36 - Other intervertebral disc degeneration, lumbar region (6) Obesity (BMI 30-39.9): Code(s): E66.9 - Obesity, unspecified Plan #Neck Pain/Right Trapezius muscle strain/Right Shoulder pain: After careful review of history, diagnostics and physical exam, I do not think the patient as an autoimmune or inflammatory pathology that incites her neck pain. The neck/Trapezius pain is mainly due to muscle strain and could be related to sleep positioning. She can continue using Tylenol and Naproxen and topical Diclofenac gel. She is also encouraged to use warm compresses and do stretches to the area. I will refer her to PT for evaluation and treatment. #OA multiple Joints/DDD lumbar Spine. Continue with Tylenol and Naproxen as prescribed. #Obesity: Discussed weightloss and the possible positive effects on joint pain. Patient will return to clinic in three months to assess for PT effectiveness but knows to call the office sooner if needed Orders: Orders PT Evaluation and Treatment Today M25.511 - Pain in right shoulder, M54.2 - Cervicalgia Coding Level of Care Code New Pt Level 4 (15892) Diagnoses Neck pain M54.2 Chronic right shoulder pain M25.511; G89.29 Chronicity: chronic Strain of left trapezius muscle, initial encounter S46.811U Encounter type: initial encounter Laterality: left Osteoarthritis involving multiple joints on both sides of body M15.9 Degenerative disc disease, lumbar M51.36 Obesity (BMI 30-39.9) E66.9
[2023-03-09 12:52] VITALS: BP 110/70; PULSE 58; TEMP 36.3; O2SAT 98; BMI 35.6
== END 2023-03-09 13:28 | disposition home or self-care (01) ==
PROVIDERS: PCP Internal Medicine; Visit Provider Nurse Practitioner Family
DX: M54.2 Cervicalgia (principal); M25.511 Pain in right shoulder; G89.29 Other chronic pain; S46.812A Strain of other muscles, fascia and tendons at shoulder and upper arm level, left arm, initial encounter; M15.9 Polyosteoarthritis, unspecified; M51.36 Other intervertebral disc degeneration, lumbar region; E66.9 Obesity, unspecified
CPT/HCPCS: 99204

== ENCOUNTER → 2023-03-09 12:34 | Outpatient (BNVA) | payer OTHER, SELFPAY | PROVIDERS: PCP Internal Medicine; Visit Provider Nurse Practitioner Family | DX: S46.811A Strain of other muscles, fascia and tendons at shoulder and upper arm level, right arm, initial encounter (principal); M54.2 Cervicalgia; G89.29 Other chronic pain | CPT/HCPCS: 99202 ==

== ENCOUNTER 2023-06-12 09:00 | Outpatient (RCR) | payer OTHER, SELFPAY ==
--- NOTE | 2023-05-19 10:19 | MHC.PT.EP ---
[facility] [place] Office [place] Office [place] Office [address] Jacinto Romano [address] [phone] F: [phone] F: [phone] F: [phone] F: [phone] Physical Therapy Plan of Care Date of Evaluation: 05/19/23 Date of Surgery: Diagnosis: CERVICALGIA, PAIN IN RIGHT SHOULDER, STERNOCLEIDOMASTOID PAIN/ STRAIN/PINCHED NERVE x 1YEAR; ALSO SUGGEST SLEEP HABITS Assessment: 48 YO FEMALE REF TO PT W A 1 YR H/O INSIDUOUS MATILDE CERVICAL PAIN- SHE HAS DIFFIC GETTING COMFORTABLE TO SLEEP- SHE IS DISABLED DUE TO DEPRESSION AND NOTES 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 OBJECTIVE FINDINGS: DECR POSTURAL AWARENESS, CERV AROM LIMITATIONS, STRENGTH DEFICITS POST RC/ SCAPULAR MM, (+) TTP MATILDE UT/ LEV/ SCMD MM, AND (+) PAIN IN MATILDE LOWER CERV AND CERV PS MM. CURRENTLY THE Pt DENIES RADICULAR SXS AND THERE IS (-) SENSORIMOTOR DEFICITS. FUNCTIONALLY, THE Pt IS LIMITED W ADLs REQ CARRYING OBJECTS, PROLONGED CELL PHONE USAGE, SLEEPING, AND ADLs REQ CERV ROTAT Lt OR FLEXION. THE Pt WOULD BENEFIT FROM PT TO ADDRESS THE ABOVE FINDINGS AND GUIDE THE Pt IN PAIN MGMT TECHN, POSTURAL CORRECTION, AND DEV OF A HEP FOR IMPROVED SELF-SX MGMT TECHN. Frequency and Duration: The patient will be seen 2 x WK x 5 WKS Short Term Goals: *DECREASE CERV PAIN TO 3-4/10 *Pt INDEP W SELF POSTURAL CORRECTION IN SITTING, STANDING, AND SLEEPING POSITIONS *WFL CERV AROM FOR ADL PERF W/O PAIN LIMITATIONS Clinical Studies Specialist Goals: *Pt INDEP W PROGRESSIVE HEP AND SELF-SX MGMT TECHN *Pt INCREASE PERF OF REG ADLs EVIDENT W IMPROVED NPDI 8-10 POINTS (AT EVAL ) *WFL STRENGTH MATILDE POST RC/ SCAP MM Treatment Plan: Modalities to reduce pain, spasms and effusion. Manual therapy to restore motion and function. Therapeutic exercise to improve strength and flexibility. Neuromuscular re-education for posture and balance. Therapeutic activities to return to functional activities of daily living. Electronically signed by: LAURA GRULLON,PT Please sign and return to therapist. Thank you for your referral.
--- NOTE | 2023-06-16 15:08 | MHC.PT.DC ---
[facility] [place] Office [place] Office [place] Office [address] Jacinto Romano [address] [phone] F: [phone] F: [phone] F: [phone] F: [phone] Physical Therapy Discharge Report Diagnosis: CERVICALGIA, PAIN IN RIGHT SHOULDER, STERNOCLEIDOMASTOID PAIN/ STRAIN/PINCHED NERVE x 1YEAR; ALSO SUGGEST SLEEP HABITS Date of Surgery: Date of Evaluation: 05/19/23 Date of Discharge: 06/16/23 Treatments to Date: 4 Cancellations to Date: 3 No Shows to Date: 2 Discharge Status: Patient Elected to Stop Visit Non-compliance Discharge Summary: THE Pt HAS BEEN EDUC RE POSTURE, A HEP HAS BEEN INTIIATED, AND HER PAIN WAS MILDLY REDUCED-THE Pt HAD POOR ATTENDANCE FOR SCHED PT APPTS AND IS D/C PER THE DEPT ATTENDANCE POLICY. Electronically signed by: LAURA GRULLON,PT Please sign and return to therapist. Thank you for your referral.
== END 2023-06-16 15:07 | disposition home or self-care (01) ==
LOC: HO.PT 09:00
PROVIDERS: PCP Internal Medicine; Visit Provider Nurse Practitioner Family
DX: M54.2 Cervicalgia (principal); M25.511 Pain in right shoulder
CPT/HCPCS: 97140; 97162; 97530

== ENCOUNTER 2023-08-26 08:05 | Outpatient (AMB) | payer OTHER, SELFPAY ==
--- NOTE | 2023-08-26 08:15 | MHC.PC.OV ---
Vital Signs 08/26/23 08:17 Height 5 ft 5.75 in Weight 219 lb BMI 35.6 BP 130/80 Blood Pressure Location Lt brachial Position Sitting Intake Visit Reasons: PE Intake Note: Patient here for a physical exam Workers Compensation Claims Specialist Required: No Accompanied by: Self / Same As Patient Allergies morphine Adverse Reaction (Severe, Verified 08/26/23 08:38) Rash levothyroxine Adverse Reaction (Intermediate, Verified 08/26/23 08:38) Headache Medication List - Last Reconciled 08/26/23 by Mily Gordon MD albuterol sulfate 90 mcg/actuation 0 mcg inhalation aripiprazole 10 mg PO DAILY 90 days blood pressure monitor As directed buspirone 30 mg PO BID cholecalciferol (vitamin D3) (Vitamin D3) 50 mcg PO DAILY cyanocobalamin (vitamin B-12) 1,000 mcg IM Q4W 30 days diclofenac sodium 1% 2 grams topical BID 30 days fexofenadine 180 mg PO DAILY heating pads As directed hydroxyzine HCl 25 mg PO BEDTIME incontinence pad, liner, disp Use 1 pad once a day loratadine 10 mg PO DAILY losartan 25 mg PO DAILY 90 days meclizine 25 mg PO TID 30 days naproxen 500 mg PO BID PRN [neck pillow As directed] sertraline 100 mg PO BID sumatriptan succinate 0 mg PO DIRECTED Synthroid (levothyroxine) 150 mcg PO DAILY 30 days NS syringe with needle ([employer] Luer Lock Syringe with needle) Use 1 needle once a month triamcinolone acetonide intranasal underpads (Bed Underpads) As directed Tobacco use date assessed: 08/26/23 Dental Screening Dental Screen Date: 08/26/23 Did you have a dental visit in the last 12 months?: No Did you have a dental problem in the last 6 months where you did not have access to dental care?: No Was dental information given to patient?: Patient has dentist HPI HPI Comments History of Present Illness Details This is a 48-year-old female with mild recurrent major depression that comes for her physical exam. Depression has been somewhat stable with Abilify and this is follow by Psychiatry. Last mammogram was 2022 and was normal. Last Pap smear was 2022 at [facility] and it was normal as per patient. Has appointment with Gastroenterology at [facility] soon to schedule colonoscopy for the 1st time. She complains of occasional chest pain that happens at rest. No change in bowel or bladder habits. No shortness of breath. Complains of low back pain that radiates to the right buttock and leg that started about a month ago. No fever, bowel or bladder incontinence. Patient says that she is allergic to toilet paper and needs wipes. [facility] Medical History (Updated 08/26/23 @ 08:56 by Mily Gordon MD) Obesity (BMI 30-39.9) Degenerative disc disease, lumbar Osteoarthritis involving multiple joints on both sides of body Trapezius muscle strain Shoulder pain, right Surgical History History of cholecystectomy History of Family History Mother Lung cancer Father Hypercholesteremia Kidney stone Renal failure Family/Other Mental health disorder Sister Lupus Social History Household Members: Spouse and Children Housing: House Alcohol intake: never Patient Tobacco Use Status: Never used Tobacco e-Cigarette/Vaping Use: Never Used Second Hand Smoke Exposure: No service: No Current occupational status: unemployed and disabled Cognitive needs: No Hearing needs: No Vision needs: Yes Questionnaire PHQ-9 Over the last 2 weeks, how often have you been bothered by any of the following problems? 1. Little interest or pleasure in doing things: not at all 2. Feeling down, depressed, or hopeless: several days 3. Trouble falling or staying asleep, or sleeping too much: more than half the days 4. Feeling tired or having little energy: nearly every day 5. Poor appetite or overeating: not at all 6. Feeling bad about yourself - or that you are a failure or have let yourself or your family down: not at all 7. Trouble concentrating on things, such as reading the newspaper or watching television: several days 8. Moving or speaking so slowly that other people could have noticed. Or the opposite - being so fidgety or restless that you have been moving around a lot more than usual: several days 9. Thoughts that you would be better off or of hurting yourself in some way: not at all Total score: 8 Depression Screening Interpretation: Positive Depression Screening Follow-up: Existing condition, In treatment and Follow-up Visit Requested Depression Screening Done: Yes 94104 - PHQ-9 Billing: Yes Source: Developed by Drs. Wilton Caruso, Juliane Sneed, Stefan Ambrose and colleagues, with an educational shawna from [employer]. Thrive Questionnaire Date Thrive assessed: 08/26/23 I am a: Patient What is your living situation today?: I have a steady place to live Within the past 12 months, did the food you bought not last and you didn't have the money to get more?: Never true Within the past 12 months, did you worry whether your food would run out before you got money to buy more?: Never true Do you have trouble paying for medicines?: No Do you have trouble getting transportation to medical appointments?: No Do you have trouble paying your heating and electricity bill?: No Do you have trouble taking care of your child, family member or friend?: No Do you have trouble with day-to-day activities such as bathing, preparing meals, shopping, managing finances, etc.?: No Are you currently unemployed and looking for a job?: No Are you interested in more education?: No Please select the resources that you would like help with: None Currently or been in a relationship where the following occur: no concerns reported THRIVE Score: 0 AUDIT C Alcohol Use Questionnaire (AUDIT-C) 1. How often do you have a drink containing alcohol?: Never Total Score: 0 Score Reviewed/Action Taken: No MANDY-7 AMB Questionnaire MANDY-7 Date MANDY - 7 assessed: 08/26/23 Feeling nervous, anxious, or on edge: 1 = Several days Not being able to stop or control worryin = Not at all Worrying too much about different things: 1 = Several days Trouble relaxin = Several days Being so restless that it is hard to sit still: 0 = Not at all Becoming easily annoyed or irritable: 1 = Several days Feeling afraid as if something awful might happen: 1 = Several days Total MANDY-7 score (0-4 normal; 5-9 mild; 10-14 moderate; 15-21 severe): 5 Source: Developed by Juliane Oh. Naren, Stefan Ambrose and colleagues, with an educational shawna from [employer]. MANDY-7 Assessment Billing MANDY-7 Assessment Tool: MANDY-7 Assessment 39018 Review of Systems Const All systems reviewed & are unremarkable except as noted in HPI and below Eyes Reports no additional complaints, Denies change in vision and Denies other visual disturbances ENT Reports nasal discharge Card Denies chest pain at rest, Denies chest pain with activity, Denies edema, Denies irregular heart rhythm, Denies claudication, Denies dyspnea, Denies dyspnea on exertion, Denies orthopnea, Denies paroxysmal nocturnal dyspnea and Denies slow heart rate Resp Denies cough, Denies dyspnea and Denies dyspnea on exertion Musc Reports back pain Psych Reports anxiety and Reports depression Physical exam (Primary Care) Vital Signs: Last Vital Signs BP 130/80 08/26/23 08:17 BMI result Body Mass Index 35.6 Tobacco/Smoking Status: Tobacco use Status Tobacco use date assessed 08/26/23 08/26/23 08:23 Patient Tobacco Use Status Never used Tobacco 08/26/23 08:15 e-Cigarette/Vaping Use Never Used 08/26/23 08:15 PHQ-9: PHQ-9 Score PHQ-9: Total score 8 08/26/23 08:23 Depression Screening Interpretation: Positive Depression Screening Follow-up: Existing condition, In treatment and Follow-up Visit Requested Thrive Assessment: Date of Thrive Assessment Date Thrive assessed 08/26/23 08/26/23 08:23 Currently or been in a relationship where the following occur: no concerns reported Const Orientation/consciousness: patient oriented x3 [facility] Head: Yes normal to inspection, Yes normocephalic and Yes atraumatic Ears: external ears normal Eyes General: appearance normal, both eyes and all related structures Eyelids: Yes eyelids normal Conjunctivae: conjunctivae normal Neck Neck: Yes normal visual inspection and Yes supple Resp Effort & Inspection: normal respiratory effort Auscultation: clear to auscultation bilaterally Cardio Jugular venous distension: no JVD Rate: regular rate Rhythm: regular rhythm Heart sounds: S1 normal heart sound present and S2 normal heart sound present GI Inspection: Yes normal to inspection Palpation (GI): Soft to palpation and nontender Auscultation: normal bowel sounds Skin General skin exam: no rashes or lesions noted Neuro General: patient oriented x3 and no focal motor deficits Extrem General: Yes full ROM Psych Appearance: grossly normal Assessment and Plan Assessment & Plan (1) Physical exam: Code(s): Z00.00 - Encounter for general adult medical examination without abnormal findings Plan: Repeat in a year. (2) Mild recurrent major depression: Code(s): F33.0 - Major depressive disorder, recurrent, mild Plan: Continue Abilify. Follow-up with psychiatry. Orders: Orders XR lumbar spine 2-3V Today M54.50 - Low back pain, unspecified Complete Blood Count Auto Diff Today D64.9 - Anemia, unspecified Lipid Panel Today I10 - Essential (primary) hypertension IRON PROFILE Today D64.9 - Anemia, unspecified ECG 12 lead EKG Today R07.9 - Chest pain, unspecified XR hip RT min 2V Today M25.551 - Pain in right hip Vitamin D 25-OH Total Today E55.9 - Vitamin D deficiency, unspecified Vitamin B12 and Folate Today E53.8 - Deficiency of other specified B group vitamins Thyroid Stimulating Hormone Today E06.3 - Autoimmune thyroiditis Comprehensive [place]. Panel Fast Today I10 - Essential (primary) hypertension Medications: New [wipes] As directed 200 ea 11RF R32 - Unspecified urinary incontinence, T65.91XA - Toxic effect of unspecified substance, accidental (unintentional), initial encounter Discontinued meclizine Discontinued Reason: No Longer Medically Relevant 25 mg PO TID 30 days 90 tabs 0RF Coding Level of Care Code Est Pt Prev Care 40-64y(02346) Diagnoses Physical exam Z00.00 Mild recurrent major depression F33.0 Additional Codes MANDY-7 Assessment Billing - MANDY-7 Assessment Tool: MANDY-7 Assessment 37028 ([id number]) Time Spent (min) 32
[2023-08-26 08:17] VITALS: BP 130/80; BMI 35.6
== END 2023-08-26 08:57 | disposition home or self-care (01) ==
PROVIDERS: Visit Provider Internal Medicine
DX: Z00.00 Encounter for general adult medical examination without abnormal findings (principal); F33.0 Major depressive disorder, recurrent, mild
CPT/HCPCS: 99396

== ENCOUNTER 2023-08-26 09:16 | Outpatient (AMB) | payer OTHER, SELFPAY ==
--- NOTE | 2023-08-26 09:42 | A.OFFVIS_ITS ---
Intake Vital Signs 08/26/23 09:48 Height 5 ft 5.75 in Weight 219 lb 2.232 oz BMI 35.6 BP 122/84 Blood Pressure Location Rt brachial Position Sitting Pulse 74 Pulse Source Pulse Oximeter Pulse Oximetry (%) 95 Oxygen Delivery Method Room Air Intake Visit Reasons: Cervicalgia Intake Note: Patient last seen 03/09/23 by Thien, presents today to follow up on PT effectiveness. Emergency Communications Dispatcher Required: Yes Emergency Communications Dispatcher Language: Urban Redevelopment Specialist Name: [email or web address] [id number] Information Interpreted: non-clinical & clinical Accompanied by: Self / Same As Patient Allergies morphine Adverse Reaction (Severe, Verified 08/26/23 09:47) Rash levothyroxine Adverse Reaction (Intermediate, Verified 08/26/23 09:47) Headache HPI HPI Comments History of Present Illness Details Ms. Perkins 47-year-old female returns to discuss lab findings for initial evaluation of neck pain and right shoulder pain. She did do PT which she thinks helps a little bit but she has not continue to do the exercises at home. She has since developed sciatica pain to her right side for about 1 month now per patient. She feels pulsing and pain to her lower extremity especially to her wong area and ankle. It hurts for her to walk. 02/2023: This is a 47-year-old female with medical history of hypertension, mild major depression, pernicious anemia and autoimmune thyroiditis, presents today for evaluation of neck and right shoulder pain. Patient is not able to say what are the associated factors with onset but she has had the pain for at least 1 year. The pain is improved by Tylenol and Naproxen. She has been using a pillow at night, recommended by PCP but it often makes her pain worse. Patient denies othe r joint pain except for right knee pain. Xrays of her neck, lower back and knee were done. Patient denies Raynaud's phenomenon, butterfly rash on face or other rashes; denies photosensitivity - getting sick or developing a rash from being out in the sun; denies blood or froth in urine; patient denies hx of SOB, chest pain. Patient denies hx of Carditis or Pleuritis. Denies fevers, excessive fatigue, unexplained weight-loss or weight-gain. Denies: thinning hair or hair loss, hx of rashes; Denies: dry, itchy eyes, red burning eyes needing steroids to treat; dry mouth, mouth sores or ulcers; nose bleed; ringing in the ear, Denies abdominal pain, blood or mucous in stool; nausea, vomiting and diarrhea , difficulty swallowing, heartburn. Denies morning stiffness lasting more than 20 mins. Malignancy screening: denies personal cancer hx. [facility] Medical History (Updated 08/26/23 @ 11:43 by KRISTEN Louis-) Sciatica of right side without back pain Obesity (BMI 30-39.9) Degenerative disc disease, lumbar Osteoarthritis involving multiple joints on both sides of body Trapezius muscle strain Shoulder pain, right Surgical History History of cholecystectomy History of Family History Mother Lung cancer Father Hypercholesteremia Kidney stone Renal failure Family/Other Mental health disorder Sister Lupus Social History Household Members: Spouse and Children Housing: House Alcohol intake: never Patient Tobacco Use Status: Never used Tobacco e-Cigarette/Vaping Use: Never Used Second Hand Smoke Exposure: No service: No Current occupational status: unemployed and disabled Cognitive needs: No Hearing needs: No Vision needs: Yes Review of Systems Const All systems reviewed & are unremarkable except as noted in HPI and below Physical Exam Vital Signs: Last Vital Signs Pulse 74 08/26/23 09:48 BP 122/84 08/26/23 09:48 Pulse Ox 95 08/26/23 09:48 Oxygen Delivery Method Room Air 08/26/23 09:48 BMI result Body Mass Index 35.6 APPEARANCE: Patient in no acute distress EYES no redness, pupils equal and reactive to light, eyelids normal EARS:? External ear normal, canal clear and tympanic membrane normal. NOSE/SINUS:? Airflow through both nares, no nasal discharge, no bleeding THROAT:? Oral mucosa moist, no ulcerations NECK:? No thyromegaly or masses, no adenopathy, trachea midline. HEART:? Regulrar rhythm, S1-S2 heard, no murmurs, rubs or gallops. LUNG:? Clear to percussion and auscultation ABD:? Normal bowel sounds, no organomegaly, masses or tenderness. EXTREMITIES:? No edema, no calf tenderness, normal peripheral pulses. NEURO:? Oriented and alert x3.? No focal weakness.? Reflexes symmetric.? Gait normal. SKIN:? There are no skin lesions evident. No objective signs of Raynaud's phenomenon. JOINT EXAM: Cervical Spine/Neck:.? Full range of motion with mild pain to left trapezius muslce with right lateral flexion. Mild tenderness with palpation to left trapezius muscle extending up pass the nape. Thoracic Spine:.? No scoliosis.? No tenderness on palpation. Lumbar Spine:.? Alignment normal.? Full range of motion without pain, no tenderness. Chest Wall:.? No tenderness, swelling, increased warmth or erythema. Hands:.? Normal pain-free range of motion without tenderness, swelling, increased warmth or erythema. Able to make a full fist and has a good adobe flex developer strength. Wrists:.? Normal pain-free range of motion without tenderness, swelling, increased warmth or erythema. Elbows:. Normal pain-free range of motion without tenderness, swelling, increased warmth or erythema. Shoulders:.?? Full range of motion. mild pain to right side with full flexion, mild tenderness with palpation to trapezius at mid shoulder blade, but no weakness, swelling, increased warmth or erythema. Hips:.? Full range of motion with pain during infection and extension on the right side buttocks. Pinpoint tenderness to the right piriformis area. Hip bursa:.? No tenderness. Knees:.?? Normal range of motion without, swelling, increased warmth or eryth celia.? There is no effusion or crepitation. Mild tenderness to right pas anserine bursa. Ankles:.? Normal pain-free range of motion without tenderness, swelling, increased warmth or erythema. Feet:.? Normal pain-free range of motion without tenderness, swelling, increased warmth or erythema. Tender points:? No tenderness to digital palpation at the occiput, second rib, lateral epicondyle, knees, greater trochanter and gluteal area bilaterally. Results Reviewed Results Reviewed: Laboratory Tests 02/17/23 09:12 MCH 26.1 L Abs Immat Gran (auto) 0.05 H EXAMINATION: XR BILATERAL KNEES CLINICAL INFORMATION: Reason for Exam M25.562 - Pain in left knee COMPARISON: None TECHNIQUE: 2 views of the bilateral knees FINDINGS: RIGHT KNEE: No acute fracture or dislocation. Joint spaces are maintained. Small suprapatellar joint effusion. Soft tissues are unremarkable. LEFT KNEE: No acute fracture or dislocation. Joint spaces are maintained. Small suprapatellar joint effusion. Soft tissues are unremarkable. XR/XR knee LT 2V IMPRESSION: * No acute osseous abnormality. * Small bilateral suprapatellar effusions. EXAMINATION: XR LUMBOSACRAL SPINE CLINICAL INFORMATION: Low back pain COMPARISON: None available. TECHNIQUE: Three views of the lumbosacral spine. FINDINGS: Lumbar lordotic straightening. Multilevel spurring. 5 lumbar type vertebral bodies are identified and are maintained in height. Pedicles and SI joints within normal limits. Cholecystectomy clips. XR/XR lumbar spine 2-3V IMPRESSION: Lumbar lordotic straightening and mild degenerative changes. EXAMINATION: XR CERVICAL SPINE CLINICAL INFORMATION: Neck pain COMPARISON: None available. TECHNIQUE: 3 views of the cervical spine were obtained. FINDINGS: Bone alignment is normal. No fracture or dislocation. Mild degenerative spondylosis and degenerative disc disease at C5-C6. Prevertebral soft tissues are normal. XR/XR cervical spine 2V IMPRESSION: Mild degenerative changes at C5-C6. Assessment & Plan Assessment & Plan (1) Neck pain: Code(s): M54.2 - Cervicalgia (2) Shoulder pain, right: Code(s): M25.511 - Pain in right shoulder Qualifiers: Chronicity: chronic Qualified Code(s): M25.511 - Pain in right shoulder; G89.29 - Other chronic pain (3) Trapezius muscle strain: Code(s): S46.819A - Strain of other muscles, fascia and tendons at shoulder and upper arm level, unspecified arm, initial encounter Qualifiers: Encounter type: initial encounter Laterality: left Qualified Code(s): S46.812A - Strain of other muscles, fascia and tendons at shoulder and upper arm level, left arm, initial encounter (4) Osteoarthritis involving multiple joints on both sides of body: Code(s): M15.9 - Polyosteoarthritis, unspecified (5) Degenerative disc disease, lumbar: Code(s): M51.36 - Other intervertebral disc degeneration, lumbar region (6) Obesity (BMI 30-39.9): Code(s): E66.9 - Obesity, unspecified (7) Sciatica of right side without back pain: Code(s): M54.31 - Sciatica, right side Plan #Neck Pain/Right Trapezius muscle strain/Right Shoulder pain: After careful review of history, diagnostics and physical exam, I do not think the patient as an autoimmune or inflammatory pathology that incites her neck pain. The neck/Trapezius pain is mainly due to muscle strain and could be related to sleep positioning. She can continue using Tylenol and Naproxen and topical Diclofenac gel. She is again encouraged to use warm compresses and do stretches to the area. She had done PT and says it helped a little. I encouraged that she continue those exercises at home and do what she needs to do to keep muscles relax. #OA multiple Joints/DDD lumbar Spine. Continue with Tylenol and Naproxen as prescribed. #Obesity: Discussed weightloss and the possible positive effects on joint pain. She had discuss weight loss with her primary care whom recommended meal replacement protein shakes. The patient says she was hesitant to do that because protein shakes contain Biotin that could affect her thyroid management. I explained to the patient she can use protein shakes that do not contain biotin supplementation and we discussed some options that were available to her. #Sciatica right: She describes pain that starts up to her buttocks near the piriformis area and radiates all the way down to her leg. This prevents her from walking normally and it hurts to walk. Discussed with patient the pathology of sciatica nerve pain. She had pinpoint tenderness or recommended a cortisone shot that could give her some relief but she refused at this visit. I demonstrated some recommended exercises. Suggested home management remedies such as heat and topical pain relieving creams. The patient has her primary care ordered an x-ray. I spent 40 minutes reviewing chart, evaluating patient and demonstrating exercises, discussing weight loss options and documenting Patient will return to clinic in 6 months but knows to call the office sooner if needed Coding Level of Care Code Est Pt Level 4 (81728) Diagnoses Neck pain M54.2 Chronic right shoulder pain M25.511; G89.29 Chronicity: chronic Strain of left trapezius muscle, initial encounter S46.813S Encounter type: initial encounter Laterality: left Osteoarthritis involving multiple joints on both sides of body M15.9 Degenerative disc disease, lumbar M51.36 Obesity (BMI 30-39.9) E66.9 Sciatica of right side without back pain M54.31
[2023-08-26 09:48] VITALS: BP 122/84; PULSE 74; O2SAT 95; BMI 35.6
== END 2023-08-26 10:28 | disposition home or self-care (01) ==
PROVIDERS: PCP Internal Medicine; Visit Provider Nurse Practitioner Family
DX: M54.2 Cervicalgia (principal); M25.511 Pain in right shoulder; G89.29 Other chronic pain; S46.812A Strain of other muscles, fascia and tendons at shoulder and upper arm level, left arm, initial encounter; M15.9 Polyosteoarthritis, unspecified; M51.36 Other intervertebral disc degeneration, lumbar region; E66.9 Obesity, unspecified; M54.31 Sciatica, right side
CPT/HCPCS: 99214

== ENCOUNTER → 2023-08-26 09:16 | Outpatient (BNVA) | payer OTHER, SELFPAY | PROVIDERS: PCP Internal Medicine; Visit Provider Nurse Practitioner Family | DX: M54.2 Cervicalgia (principal); S46.812D Strain of other muscles, fascia and tendons at shoulder and upper arm level, left arm, subsequent encounter; M54.31 Sciatica, right side; M25.511 Pain in right shoulder; M15.9 Polyosteoarthritis, unspecified; M51.36 Other intervertebral disc degeneration, lumbar region; G89.29 Other chronic pain; E66.9 Obesity, unspecified; Z68.35 Body mass index [BMI] 35.0-35.9, adult | CPT/HCPCS: 99212 ==

== ENCOUNTER 2023-09-01 06:53 | Outpatient (REF) | payer OTHER, SELFPAY ==
--- NOTE | ~2023-09-01 | XR_ITS ---
EXAMINATION: XR LUMBAR SPINE XR RIGHT HIP CLINICAL INFORMATION: Pain in right hip, low back pain unspecified. COMPARISON: 12/04/2022. TECHNIQUE: 3 views of the lumbar spine and 2 views of the right hip FINDINGS: LUMBAR SPINE: Slight levoscoliosis of the lumbar spine. Five (5) lumbar type vertebral bodies. Surgical clips right upper quadrant. Bilateral sacroiliac joints are symmetric. Facet arthritis in lower lumbar spine. Mild multilevel lumbar spondylosis. Straightening of the normal lumbar lordosis. RIGHT HIP: Minimal degenerative changes with minimal lateral acetabular hypertrophic change. Alignment preserved. XR/XR hip RT min 2V IMPRESSION: 1. Mild multilevel lumbar spondylosis. 2. Minimal degenerative changes in the right hip.
--- NOTE | ~2023-09-01 | XR_ITS ---
EXAMINATION: XR LUMBAR SPINE XR RIGHT HIP CLINICAL INFORMATION: Pain in right hip, low back pain unspecified. COMPARISON: 12/04/2022. TECHNIQUE: 3 views of the lumbar spine and 2 views of the right hip FINDINGS: LUMBAR SPINE: Slight levoscoliosis of the lumbar spine. Five (5) lumbar type vertebral bodies. Surgical clips right upper quadrant. Bilateral sacroiliac joints are symmetric. Facet arthritis in lower lumbar spine. Mild multilevel lumbar spondylosis. Straightening of the normal lumbar lordosis. RIGHT HIP: Minimal degenerative changes with minimal lateral acetabular hypertrophic change. Alignment preserved. XR/XR lumbar spine 2-3V IMPRESSION: 1. Mild multilevel lumbar spondylosis. 2. Minimal degenerative changes in the right hip.
--- NOTE | 2023-09-01 07:53 | ECG_ITS ---
Test Reason : cp preop Blood Pressure : / mmHG Vent. Rate : 058 BPM Atrial Rate : 058 BPM P-R Int : 144 ms QRS Dur : 072 ms QT Int : 394 ms P-R-T Axes : 027 008 008 degrees QTc Int : 386 ms Sinus bradycardia Otherwise normal ECG No previous ECGs available Referred By: Mily Gordon Electronically Signed By:TISH MARRUFO MD
[2023-09-01 08:13] LABS: MANUAL DIFF FLAG NO
[2023-09-01 08:41] LABS: Basophils Absolute Auto 0.1 X10*3/uL (0.0-0.2); Basophils Percent Auto 1.4 % (0-2); Eosinophils Absolute Auto 0.3 X10*3/uL (0.0-0.4); Hematocrit 36.5 % (37.0-47.0); Hemoglobin 11.4 g/dl (12.0-16.0); Imm Gran Abs Auto 0.02 X10*3/uL (0.00-0.03); Imm Gran Pct Auto 0.3 % (0.0-0.4); Lymphocytes Absolute Auto 1.9 X10*3/uL (1.2-4.9); Lymphocytes Percent Auto 29.4 % (20-40); Mean Corpuscular HGB Conc 31.2 g/dl (31.0-35.0); Mean Corpuscular Hemoglobin 23.9 pg (27.0-33.0); Mean Corpuscular Volume 76.7 fL (80.0-98.0); Mean Platelet Volume 11.6 fL (9.4-12.3); Monocytes Absolute Auto 0.5 X10*3/uL (0.1-1.2); Monocytes Percent Auto 6.8 % (2-11); Neutrophils Absolute Auto 3.8 x10*3/uL (2.0-8.3); Neutrophils Percent Auto 58.1 % (45-73); Platelet Count 303 X10*3/uL (160-400); Red Blood Count 4.76 X10*6/uL (4.20-5.50); Red Cell Distribution Width 15.8 % (11.0-16.0); White Blood Count 6.6 X10*3/uL (4.8-10.8)
[2023-09-01 09:11] LABS: Alanine Aminotransferase 18 U/L (0-31); Albumin Level 4.1 g/dL (3.5-5.0); Alkaline Phosphatase 70 U/L (39-117); Anion Gap 11 (12-20); Aspartate Amino Transferase 16 U/L (5-31); Bilirubin Total 0.3 mg/dL (0.0-1.0); Blood Urea Nitrogen 11 mg/dL (9-16); Calcium 9.6 mg/dL (8.4-10.2); Carbon Dioxide 27 mmol/L (22-29); Chloride 107 mmol/L (96-108); Cholesterol 157 mg/dL (<200); Estimated Glomerular Filt Rate > 60; Glucose Fasting 102 mg/dL (60-99); HDL Cholesterol 49 mg/dL (>40); Iron 29 mcg/dL (30-160); LDL Cholesterol Calculated 89 mg/dL (<100); Percent Iron Saturation 9 % (15-50); Potassium 4.2 mmol/L (3.3-5.1); Sodium 141 mmol/L (135-145); Total Iron Binding Capacity 335 mcg/dL (228-428); Total Protein 7.4 g/dL (6.5-8.0); Triglycerides 97 mg/dL (<150); Unsaturated Iron Binding 306 ug/dL
[2023-09-01 09:28] LABS: Thyroid Stimulating Hormone 0.76 uIU/mL (0.32-4.0); Vitamin D 25-OH Total 28.5 ng/mL (>30)
[2023-09-01 09:39] LABS: Folate 5.4 ng/mL (> or = 4.0); Vitamin B12 283 pg/mL (200-900)
== END 2023-09-01 06:54 | disposition home or self-care (01) ==
LOC: HO.XRAY 06:53
PROVIDERS: PCP Internal Medicine; Visit Provider Internal Medicine
DX: M54.30 Sciatica, unspecified side (principal); M25.551 Pain in right hip; E53.9 Vitamin B deficiency, unspecified; E03.9 Hypothyroidism, unspecified; D64.9 Anemia, unspecified; E55.9 Vitamin D deficiency, unspecified; R07.9 Chest pain, unspecified; E06.3 Autoimmune thyroiditis; I10 Essential (primary) hypertension
CPT/HCPCS: 36415; 72100; 73502; 80053; 80061; 82306; 82607; 82746; 83540; 84443; 85025; 93005

== ENCOUNTER → 2023-09-01 07:53 | Outpatient (BNV) | payer OTHER, SELFPAY | PROVIDERS: PCP Internal Medicine; Visit Provider Internal Medicine Cardiovascular Disease | DX: R07.9 Chest pain, unspecified (principal); R00.1 Bradycardia, unspecified | CPT/HCPCS: 93010 ==

== ENCOUNTER 2023-12-08 07:14 | Outpatient (REF) | payer OTHER, SELFPAY ==
[2023-12-08 07:26] LABS: MANUAL DIFF FLAG NO
[2023-12-08 08:01] LABS: Basophils Absolute Auto 0.1 X10*3/uL (0.0-0.2); Eosinophils Absolute Auto 0.3 X10*3/uL (0.0-0.4); Eosinophils Percent Auto 3.4 % (0-4); Hematocrit 34.1 % (37.0-47.0); Hemoglobin 10.7 g/dl (12.0-16.0); Imm Gran Abs Auto 0.03 X10*3/uL (0.00-0.03); Imm Gran Pct Auto 0.4 % (0.0-0.4); Lymphocytes Absolute Auto 2.1 X10*3/uL (1.2-4.9); Lymphocytes Percent Auto 25.8 % (20-40); Mean Corpuscular HGB Conc 31.4 g/dl (31.0-35.0); Mean Corpuscular Hemoglobin 22.9 pg (27.0-33.0); Mean Corpuscular Volume 72.9 fL (80.0-98.0); Mean Platelet Volume 11.3 fL (9.4-12.3); Monocytes Absolute Auto 0.6 X10*3/uL (0.1-1.2); Monocytes Percent Auto 7.7 % (2-11); Neutrophils Absolute Auto 5.1 x10*3/uL (2.0-8.3); Neutrophils Percent Auto 61.7 % (45-73); Platelet Count 350 X10*3/uL (160-400); Red Blood Count 4.68 X10*6/uL (4.20-5.50); Red Cell Distribution Width 16.7 % (11.0-16.0); White Blood Count 8.2 X10*3/uL (4.8-10.8)
[2023-12-08 08:32] LABS: Iron 38 mcg/dL (30-160); Percent Iron Saturation 11 % (15-50); Total Iron Binding Capacity 347 mcg/dL (228-428); Unsaturated Iron Binding 309 ug/dL
[2023-12-08 08:51] LABS: Thyroid Stimulating Hormone 1.26 uIU/mL (0.32-4.0); Vitamin D 25-OH Total 27.8 ng/mL (>30)
[2023-12-08 09:05] LABS: Folate 5.9 ng/mL (> or = 4.0); Vitamin B12 233 pg/mL (200-900)
== END 2023-12-08 07:15 | disposition home or self-care (01) ==
LOC: HO.LAB 07:14
PROVIDERS: PCP Internal Medicine; Visit Provider Internal Medicine
DX: D64.9 Anemia, unspecified (principal); E53.8 Deficiency of other specified B group vitamins; E55.9 Vitamin D deficiency, unspecified; E06.3 Autoimmune thyroiditis
CPT/HCPCS: 36415; 82306; 82607; 82746; 83540; 84443; 85025

== ENCOUNTER 2024-02-18 07:38 | Outpatient (AMB) | payer OTHER, SELFPAY ==
--- NOTE | 2024-02-18 07:49 | A.OFFPC_ITS ---
Vital Signs 02/18/24 07:50 Height 5 ft 5.75 in Weight 223 lb BMI 36.3 BP 126/80 Blood Pressure Location Lt brachial Position Sitting Intake Visit Reasons: depression, anxiety Intake Note: Patient here for a follow up depression, anxiety Lead Recreation Assistant Required: No Accompanied by: Self / Same As Patient Allergies morphine Adverse Reaction (Severe, Verified 02/18/24 08:03) Rash levothyroxine Adverse Reaction (Intermediate, Verified 02/18/24 08:03) Headache Medication List - Last Reconciled 02/18/24 by Mily Gordon MD albuterol sulfate 90 mcg/actuation 0 mcg inhalation aripiprazole 10 mg PO DAILY 90 days blood pressure monitor As directed buspirone 30 mg PO BID cholecalciferol (vitamin D3) (Vitamin D3) 50 mcg PO DAILY diclofenac sodium 1% 2 grams topical BID 30 days ferrous sulfate 325 mg PO Q OTHER DAY 30 days heating pads As directed hydroxyzine HCl 25 mg PO BEDTIME incontinence pad, liner, disp Use 1 pad once a day loratadine 10 mg PO DAILY PRN 90 days losartan 25 mg PO DAILY 90 days naproxen 500 mg PO BID PRN [neck pillow As directed] sertraline 100 mg PO BID sumatriptan succinate 0 mg PO DIRECTED Synthroid (levothyroxine) 150 mcg PO DAILY 30 days NS syringe with needle (LSN Mobile Luer Lock Syringe with needle) Use 1 needle once a month triamcinolone acetonide intranasal underpads (Bed Underpads) As directed [wipes As directed] Tobacco use date assessed: 08/26/23 Dental Screening Dental Screen Date: 02/18/24 Did you have a dental visit in the last 12 months?: Yes Did you have a dental problem in the last 6 months where you did not have access to dental care?: No Was dental information given to patient?: Patient has dentist HPI HPI Comments History of Present Illness Details This is a 48-year-old female with hypertension, autoimmune thyroiditis, pernicious anemia, mild recurrent major depression and low vitamin-D that comes today for follow-up on her conditions. She also has iron-deficiency anemia most likely secondary to menses. Blood pressure stable. Last TSH was normal but this will be repeated. Last vitamin B12 was normal to low and will also be repeated. Depression stable with Abilify and follow by Psychiatry and counseling. Vitamin-D supplements for her low weight will be Da Lulu be due lupus will be check. No chest pain or shortness on breath. She is obese with a BMI of 36.3 and was advised to do diet and exercise to reach BMI goal less than 30. FORMERLY [facility], [facility] Medical History Sciatica of right side without back pain Obesity (BMI 30-39.9) Degenerative disc disease, lumbar Osteoarthritis involving multiple joints on both sides of body Trapezius muscle strain Shoulder pain, right Surgical History History of cholecystectomy History of Family History Mother Lung cancer Father Hypercholesteremia Kidney stone Renal failure Family/Other Mental health disorder Sister Lupus Social History Household Members: Spouse and Children Housing: House Alcohol intake: never Patient Tobacco Use Status: Never used Tobacco e-Cigarette/Vaping Use: Never Used Second Hand Smoke Exposure: No service: No Current occupational status: unemployed and disabled Cognitive needs: No Hearing needs: No Vision needs: Yes Questionnaire Thrive Questionnaire Date Thrive assessed: 08/26/23 Are you currently unemployed and looking for a job?: No MANDY-7 AMB Questionnaire MANDY-7 Date MANDY - 7 assessed: 08/26/23 Source: Developed by Drs. Wilton Caruso, Juliane Sneed, Stefan Ambrose and colleagues, with an educational shawna from [employer]. Review of Systems Const All systems reviewed & are unremarkable except as noted in HPI and below Card Denies chest pain at rest, Denies chest pain with activity, Denies edema, Denies irregular heart rhythm, Denies claudication, Denies dyspnea, Denies dyspnea on exertion, Denies orthopnea, Denies paroxysmal nocturnal dyspnea and Denies slow heart rate Resp Denies cough, Denies dyspnea and Denies dyspnea on exertion Musc Denies abnormal gait, Denies atrophy, Denies deformity and Denies limited range of motion Neuro Denies abnormal gait and Denies lack of coordination Physical exam (Primary Care) Vital Signs: Last Vital Signs BP 126/80 02/18/24 07:50 BMI result Body Mass Index 36.3 BMI Assessment/Plan discussion: High BMI High, discussed plan: lifestyle, weight reduction, dietary and physical activity Tobacco/Smoking Status: Tobacco use Status Tobacco use date assessed 08/26/23 02/18/24 07:49 Patient Tobacco Use Status Never used Tobacco 02/18/24 07:49 e-Cigarette/Vaping Use Never Used 02/18/24 07:49 Thrive Assessment: Date of Thrive Assessment Date Thrive assessed 08/26/23 02/18/24 07:49 Resp Effort & Inspection: normal respiratory effort Auscultation: clear to auscultation bilaterally Cardio Jugular venous distension: no JVD Rate: regular rate Rhythm: regular rhythm Heart sounds: S1 normal heart sound present and S2 normal heart sound present Extrem General: Yes full ROM Office Procedures Flu Questionnaire Does the patient have a severe egg allergy?: No Does the patient have severe life threatening allergies?: No Does the patient have a fever or illness today?: No Has the patient ever had Guillain-Turner Syndrome?: No Has the patient ever had any past reaction to a flu shot?: No Immunizations Fluarix Triv [id number] (PF) 45 mcg (15 mcg x 3)/0.5 mL IM syringe Performing Provider: Mily Gordon MD [facility] Administered by: BEKAH Amador on 02/18/24 08:20 Dose Route Admin Location Dispensed Lot Number Expiration Date NDC Alterations Expert 0.5 mL IM Right Deltoid 0.5 mL [id number] 11/07/24 33377-128-16 [facility] VIS Given Date VIS Provided VIS Publication Date 02/18/24 Single Vaccine 20 Eligibility Eligibility Date Funding Source Not [facility] Eligible 02/18/24 Private Coding Level of Care Code Est Pt Level 4 (54632) Complex EM visit Add On G2211 Diagnoses Pernicious anemia D51.0 Iron deficiency anemia due to chronic blood loss D50.0 Iron deficiency anemia type: chronic blood loss Mild recurrent major depression F33.0 Autoimmune thyroiditis E06.3 Essential hypertension I10 Hypovitaminosis D E55.9 Time Spent (min) 22 Assessment & Plan Assessment & Plan (1) Pernicious anemia: Code(s): D51.0 - Vitamin B12 deficiency anemia due to intrinsic factor deficiency Category: Medical Plan: Recheck vitamin B12 levels. (2) Iron deficiency anemia: Code(s): D50.9 - Iron deficiency anemia, unspecified Category: Medical Qualifiers: Iron deficiency anemia type: chronic blood loss Qualified Code(s): D50.0 - Iron deficiency anemia secondary to blood loss (chronic) Plan: Repeat hemoglobin and hematocrit. Continue ferrous sulfate every other day. (3) Mild recurrent major depression: Code(s): F33.0 - Major depressive disorder, recurrent, mild Category: Medical Plan: Continue Abilify. Follow-up with psychiatry and counseling. (4) Autoimmune thyroiditis: Code(s): E06.3 - Autoimmune thyroiditis Category: Medical Plan: Continue Synthroid. Repeat TSH. (5) Essential hypertension: Code(s): I10 - Essential (primary) hypertension Category: Medical Plan: Continue losartan. Blood pressure goal is equal or less than 130/80. (6) Hypovitaminosis D: Code(s): E55.9 - Vitamin D deficiency, unspecified Category: Medical Plan: Continue vitamin-D supplementation. Orders: Orders Influenza [id number] Immunization 02/18/24 Z23 - Encounter for immunization Vitamin D 25-OH Total 02/18/24 E55.9 - Vitamin D deficiency, unspecified Vitamin B12 and Folate 02/18/24 E53.8 - Deficiency of other specified B group vitamins Thyroid Stimulating Hormone 02/18/24 E06.3 - Autoimmune thyroiditis Complete Blood Count Auto Diff 02/18/24 D64.9 - Anemia, unspecified IRON PROFILE 02/18/24 D64.9 - Anemia, unspecified
[2024-02-18 07:50] VITALS: BP 126/80; BMI 36.3
== END 2024-02-18 08:53 | disposition home or self-care (01) ==
PROVIDERS: PCP Internal Medicine; Visit Provider Internal Medicine
DX: D51.0 Vitamin B12 deficiency anemia due to intrinsic factor deficiency (principal); D50.0 Iron deficiency anemia secondary to blood loss (chronic); F33.0 Major depressive disorder, recurrent, mild; E06.3 Autoimmune thyroiditis; I10 Essential (primary) hypertension; E55.9 Vitamin D deficiency, unspecified

== ENCOUNTER → 2024-02-18 07:38 | Outpatient (BNVA) | payer OTHER, SELFPAY | PROVIDERS: PCP Internal Medicine; Visit Provider Internal Medicine | DX: Z23 Encounter for immunization (principal); D51.0 Vitamin B12 deficiency anemia due to intrinsic factor deficiency; D50.0 Iron deficiency anemia secondary to blood loss (chronic); F33.0 Major depressive disorder, recurrent, mild; E06.3 Autoimmune thyroiditis; E55.9 Vitamin D deficiency, unspecified; I10 Essential (primary) hypertension | CPT/HCPCS: 90471; 90656; 99212 ==

== ENCOUNTER 2024-02-26 09:04 | Outpatient (REF) | payer OTHER, SELFPAY ==
[2024-02-26 09:27] LABS: MANUAL DIFF FLAG NO
[2024-02-26 09:43] LABS: Basophils Absolute Auto 0.1 X10*3/uL (0.0-0.2); Eosinophils Absolute Auto 0.2 X10*3/uL (0.0-0.4); Eosinophils Percent Auto 2.5 % (0-4); Hematocrit 38.5 % (37.0-47.0); Hemoglobin 12.5 g/dl (12.0-16.0); Imm Gran Abs Auto 0.02 X10*3/uL (0.00-0.03); Imm Gran Pct Auto 0.3 % (0.0-0.4); Lymphocytes Absolute Auto 1.9 X10*3/uL (1.2-4.9); Lymphocytes Percent Auto 27.6 % (20-40); Mean Corpuscular HGB Conc 32.5 g/dl (31.0-35.0); Mean Corpuscular Hemoglobin 25.3 pg (27.0-33.0); Mean Corpuscular Volume 77.8 fL (80.0-98.0); Monocytes Absolute Auto 0.5 X10*3/uL (0.1-1.2); Monocytes Percent Auto 6.6 % (2-11); Neutrophils Absolute Auto 4.3 x10*3/uL (2.0-8.3); Platelet Count 278 X10*3/uL (160-400); Red Blood Count 4.95 X10*6/uL (4.20-5.50); Red Cell Distribution Width 17.6 % (11.0-16.0); White Blood Count 6.9 X10*3/uL (4.8-10.8)
[2024-02-26 10:27] LABS: Iron 43 mcg/dL (30-160); Percent Iron Saturation 15 % (15-50); Total Iron Binding Capacity 295 mcg/dL (228-428); Unsaturated Iron Binding 252 ug/dL
[2024-02-26 10:31] LABS: Thyroid Stimulating Hormone 0.45 uIU/mL (0.32-4.0); Vitamin D 25-OH Total 25.4 ng/mL (>30)
[2024-02-26 10:50] LABS: Folate 7.6 ng/mL (> or = 4.0); Vitamin B12 246 pg/mL (200-900)
== END 2024-02-26 09:05 | disposition home or self-care (01) ==
LOC: HO.LAB 09:04
PROVIDERS: PCP Internal Medicine; Visit Provider Internal Medicine
DX: D64.9 Anemia, unspecified (principal); E55.9 Vitamin D deficiency, unspecified; E53.8 Deficiency of other specified B group vitamins; E06.3 Autoimmune thyroiditis
CPT/HCPCS: 36415; 82306; 82607; 82746; 83540; 84443; 85025

== ENCOUNTER 2024-04-06 08:04 | Outpatient (AMB) | payer OTHER, SELFPAY ==
[2024-04-06 08:23] VITALS: BP 128/78; PULSE 78; BMI 36.2
--- NOTE | 2024-04-06 08:23 | A.OFFVIS_ITS ---
Vital Signs 04/06/24 08:23 Height 5 ft 5.75 in Weight 222 lb 10.67 oz BMI 36.2 BP 128/78 Blood Pressure Location Rt brachial Position Sitting Pulse 78 Pulse Source Pulse Oximeter Intake Visit Reasons: Neck.SHoulder Pain/Right Sciatica/cm Intake Note: Patient presents today to re-establish treatment for Neck, Shoulder Pain/Right Sciatica/cm Junior Programmer Required: Yes Junior Programmer Language: Job Coaching Services: Junior Programmer Present Accompanied by: Self / Same As Patient Allergies morphine Adverse Reaction (Severe, Verified 04/06/24 08:32) Rash levothyroxine Adverse Reaction (Intermediate, Verified 04/06/24 08:32) Headache Medication List - Last Reconciled 04/06/24 by Anna Hubbard MD albuterol sulfate 90 mcg/actuation 0 mcg inhalation aripiprazole 10 mg PO DAILY 90 days blood pressure monitor As directed buspirone mg PO cholecalciferol (vitamin D3) (Vitamin D3) 50 mcg PO DAILY diclofenac sodium 1% 2 grams topical BID 30 days ferrous sulfate 325 mg PO Q OTHER DAY 30 days heating pads As directed hydroxyzine HCl 25 mg PO BEDTIME incontinence pad, liner, disp Use 1 pad once a day loratadine 10 mg PO DAILY PRN 90 days losartan 25 mg PO DAILY 90 days naproxen 500 mg PO BID PRN [neck pillow As directed] sertraline 100 mg PO BID sumatriptan succinate 0 mg PO DIRECTED Synthroid (levothyroxine) 150 mcg PO DAILY 30 days NS syringe with needle (Modlar Luer Lock Syringe with needle) Use 1 needle once a month triamcinolone acetonide intranasal underpads (Bed Underpads) As directed [wipes As directed] HPI Comments Details: Patient is a 48-year-old female with hypertension, autoimmune thyroiditis, pernicious anemia, mild recurrent depression who is here today for follow up of polyarticular osteoarthritis and a new complaint of left elbow pain and left mid back muscle pain. Interval History: Patient last seen 08/26/2023 with Elizabet Neumann. At that time she was being treated for polyarticular osteoarthritis. There was no evidence of any autoimmune or autoinflammatory condition at that time. Today she reports left elbow pain that has been going on for the past month. She does not recall any trauma or lifting any heavy objects. 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 No swelling, redness, tenderness. No fevers. No prolonged morning stiffness. Also reports pain in her upper back mostly on the left that sometimes radiates up to her shoulder. States that sometimes she sleeps with a firm pillow and her handout. Also no trauma noted. Rheumatologic History: [facility] 02/2023 for evaluation of polyarticular joint pain. Evaluation did not reveal any concern for synovitis or inflammation. Currently being managed as polyarticular osteoarthritis Current Rheumatology Medication(s): [facility] Medical History Sciatica of right side without back pain Obesity (BMI 30-39.9) Degenerative disc disease, lumbar Osteoarthritis involving multiple joints on both sides of body Trapezius muscle strain Shoulder pain, right Surgical History History of cholecystectomy History of Family History Mother Lung cancer Father Hypercholesteremia Kidney stone Renal failure Family/Other Mental health disorder Sister Lupus Social History Household Members: Spouse and Children Housing: House Alcohol intake: never Patient Tobacco Use Status: Never used Tobacco e-Cigarette/Vaping Use: Never Used Second Hand Smoke Exposure: No service: No Current occupational status: unemployed and disabled Cognitive needs: No Hearing needs: No Vision needs: Yes Physical Exam Vital Signs: Last Vital Signs Pulse 78 04/06/24 08:23 BP 128/78 04/06/24 08:23 BMI result Body Mass Index 36.2 Physical Examination CONSTITUITIONAL Patient alert and cooperative. Well appearing and in no apparent painful distress CHEST/RESPIRATORY SYSTEM Normal respiratory effort and able to speak in complete sentences. ?Clear to auscultation bilaterally. ?No crackles, rales, rhonchi, wheezes heard. CARDIAC SYSTEM Regular rate and rhythm. ?S1 and S2 heard no murmurs. ?Radial pulses intact bilaterally MSK Hands: ?Good wharfinger chief strength bilaterally - 5/5. ?No deformities noted. ?No synovitis noted to the MCPs, PIPs or DIPs. ?No tenderness to palpation of these joints. Wrists: ?Full range of motion at the wrists without pain. ?No tenderness to palpation or synovitis noted to the wrists. Elbows: Full range of motion without pain. Tenderness to palpation of the lateral epicondyle and the proximal forearm. Pain exacerbated by resisted wrist flexion Shoulders: Full range of motion without pain. No tenderness, weakness, swelling, increased warmth or erythema. Tenderness to palpation of the trapezius muscle just below the scapula. Knees: ?Full range of motion. ?No tenderness, swelling, increased warmth or erythema.? No effusion Ankles: Full range of motion. ?No tenderness, swelling, increased warmth or erythema.? Feet: ?Negative squeeze test. ?No tenderness to palpation or swelling of the MTPs. Tender points:??No tenderness to palpation of the neck, shoulders, chest, elbows, hips, buttocks or knees. SKIN Skin intact without rashes. Results Reviewed Results Reviewed: Laboratory Tests 12/08/23 02/26/24 07:25 09:20 WBC 6.9 RBC 4.95 Hgb 12.5 Hct 38.5 Plt Count 278 25-OH Vitamin D Total 27.8 L 25.4 L Assessment & Plan Assessment & Plan (1) Osteoarthritis involving multiple joints on both sides of body: Code(s): M15.9 - Polyosteoarthritis, unspecified Category: Medical Plan: #Polyarticular OA Continue diclofenac gel Encouraged stretching and weight-bearing exercises Naproxen twice a day as needed for pain (2) Tendinopathy of left elbow: Code(s): M67.922 - Unspecified disorder of synovium and tendon, left upper arm Plan: #Left Elbow Tendinopathy Patient with tendinopathy involving the left elbow the pain Printed lateral epicondylitis stretches for her to do Advised topical diclofenac up to 4 times a day (3) Spasm of left trapezius muscle: Code(s): M62.830 - Muscle spasm of back Plan: #Muscle spasm Muscle spasm of the trapezius muscle likely due to mal sleeping Gave 14 day course of Flexeril Gave her printout for stretches (4) Vitamin D deficiency: Code(s): E55.9 - Vitamin D deficiency, unspecified Plan: #Vitamin D deficiency Continue vitamin-D supplementation every day. Plan I spent 25 minutes reviewing the record and labs, seeing the patient, discussing the treatment plan and documenting in the medical record ? Medications: New cyclobenzaprine 5 mg PO BEDTIME 14 tabs 0RF M79.10 - Myalgia, unspecified site Changed From diclofenac sodium 1% 2 grams topical BID 30 days 100 grams 1RF M15.9 - Polyosteoarthritis, unspecified To diclofenac sodium 1% 2 grams topical QID 30 days 100 grams 3RF M15.9 - Polyosteoarthritis, unspecified Coding Level of Care Code Est Pt Level 3 (33423) Diagnoses Osteoarthritis involving multiple joints on both sides of body M15.9 Tendinopathy of left elbow M67.922 Spasm of left trapezius muscle M62.830 Vitamin D deficiency E55.9
== END 2024-04-06 09:11 | disposition home or self-care (01) ==
PROVIDERS: PCP Internal Medicine; Visit Provider Student in an Organized Health Care Education/Training Program
DX: M15.9 Polyosteoarthritis, unspecified (principal); M67.922 Unspecified disorder of synovium and tendon, left upper arm; M62.830 Muscle spasm of back; E55.9 Vitamin D deficiency, unspecified
CPT/HCPCS: 99213

== ENCOUNTER → 2024-04-06 08:04 | Outpatient (BNVA) | payer OTHER, SELFPAY | PROVIDERS: PCP Internal Medicine; Visit Provider Student in an Organized Health Care Education/Training Program | DX: M15.9 Polyosteoarthritis, unspecified (principal); M67.922 Unspecified disorder of synovium and tendon, left upper arm; M62.830 Muscle spasm of back; E55.9 Vitamin D deficiency, unspecified | CPT/HCPCS: 99212 ==

== ENCOUNTER 2024-07-28 08:32 | Outpatient (AMB) | payer OTHER, SELFPAY ==
[2024-07-28 08:44] VITALS: BP 124/74; PULSE 80; TEMP 36.3; O2SAT 97; BMI 36.4
--- NOTE | 2024-07-28 08:44 | MHC.PC.OV ---
Vital Signs 07/28/24 08:44 Height 5 ft 5.75 in Weight 223 lb 9.6 oz BMI 36.4 BP 124/74 Blood Pressure Location Lt brachial Position Sitting Pulse 80 Pulse Source Pulse Oximeter Temp 97.3 F Temp Source Temporal Artery Scan Pulse Oximetry (%) 97 Oxygen Delivery Method Room Air Intake Visit Reasons: lump on under breast Engineering Technology Instructor Required: Yes Engineering Technology Instructor Language: Car Mover Name: Used tablet- Accompanied by: Self / Same As Patient Allergies morphine Adverse Reaction (Severe, Verified 07/28/24 08:48) Rash levothyroxine Adverse Reaction (Intermediate, Verified 07/28/24 08:48) Headache Medication List - Last Reviewed 07/28/24 by Madisyn Cabral CMA albuterol sulfate 90 mcg/actuation 0 mcg inhalation aripiprazole 10 mg PO DAILY 90 days blood pressure monitor As directed buspirone mg PO cholecalciferol (vitamin D3) (Vitamin D3) 50 mcg PO DAILY cyclobenzaprine 5 mg PO BEDTIME diclofenac sodium 1% 2 grams topical QID 30 days ferrous sulfate 325 mg PO Q OTHER DAY 30 days guaifenesin ER (Mucinex) 600 mg PO BID PRN 5 days heating pads As directed hydroxyzine HCl 25 mg PO BEDTIME incontinence pad, liner, disp Use 1 pad once a day loperamide 2 mg PO Q6H PRN 2 days loratadine 10 mg PO DAILY PRN 90 days losartan 25 mg PO DAILY 90 days naproxen 500 mg PO BID PRN [neck pillow As directed] sertraline 100 mg PO BID sumatriptan succinate 50 mg PO DIRECTED PRN 30 days Synthroid (levothyroxine) 150 mcg PO DAILY 30 days NS syringe with needle (View and Chew Luer Lock Syringe with needle) Use 1 needle once a month triamcinolone acetonide intranasal underpads (Bed Underpads) As directed [wipes As directed] Tobacco use date assessed: 07/28/24 Dental Screening Dental Screen Date: 07/28/24 Did you have a dental visit in the last 12 months?: Yes Did you have a dental problem in the last 6 months where you did not have access to dental care?: No Was dental information given to patient?: Patient has dentist HPI lump on under breast HPI Details 49-year-old female with past history of migraines, depression, insomnia, generalized anxiety disorder, hypertension, obesity last seen 02/2024 coming in for acute problem. In review of the notes, patient completed mammogram 04/2024 which was negative advised to follow up in 1 year. insulation helper Sherie ([id number]) was used for the duration of this visit. Presenting with a left breast mass, initially presented as a pimple-like lesion on the left breast approximately three weeks ago. The lesion increased in size with surrounding erythema, raising concern. The lesion has since diminished in size but remains present, with tenderness upon palpation. The lesion's fluctuating size and characteristics prompted the patient to seek further evaluation ahead of a previously scheduled appointment. She did have mammogram completed in March which saw irregularity however when repeated in April irregularity was not present. [facility] Medical History Sciatica of right side without back pain Obesity (BMI 30-39.9) Degenerative disc disease, lumbar Osteoarthritis involving multiple joints on both sides of body Trapezius muscle strain Shoulder pain, right Surgical History History of cholecystectomy History of Family History Mother Lung cancer Father Hypercholesteremia Kidney stone Renal failure Family/Other Mental health disorder Sister Lupus Social History Household Members: Spouse and Children Housing: House Alcohol intake: never Patient Tobacco Use Status: Never used Tobacco e-Cigarette/Vaping Use: Never Used Second Hand Smoke Exposure: No service: No Current occupational status: unemployed and disabled Cognitive needs: No Hearing needs: No Vision needs: Yes Questionnaire Thrive Questionnaire Date Thrive assessed: 07/28/24 I am a: Patient What is your living situation today?: I have a steady place to live Within the past 12 months, did the food you bought not last and you didn't have the money to get more?: Never true Within the past 12 months, did you worry whether your food would run out before you got money to buy more?: Never true Do you have trouble paying for medicines?: No Do you have trouble getting transportation to medical appointments?: No Do you have trouble paying your heating and electricity bill?: No Do you have trouble taking care of your child, family member or friend?: No Do you have trouble with day-to-day activities such as bathing, preparing meals, shopping, managing finances, etc.?: No Are you currently unemployed and looking for a job?: No Please select the resources that you would like help with: None Currently or been in a relationship where the following occur: No concerns reported THRIVE Score: 0 MANDY-7 AMB Questionnaire MANDY-7 Date MANDY - 7 assessed: 08/26/23 Source: Developed by Drs. Wilton Caruso, Juliane Sneed, Stefan Ambrose and colleagues, with an educational shawna from [employer]. Review of Systems Const Denies body aches, Denies chills, Denies fever(s), Denies headache(s) and Denies poor appetite Eyes Reports no additional complaints ENT Denies dizziness and Denies headache(s) Card Denies chest pain, Denies lightheadedness and Denies dyspnea Resp Denies cough and Denies dyspnea GI Denies abdominal pain, Denies nausea and Denies vomiting Reports no additional complaints Musc Reports no additional complaints and Denies abnormal gait Skin/Breast Reports system reviewed and no additional complaints, except as documented Neuro Denies abnormal gait, Denies dizziness and Denies headache(s) Psych Reports no additional complaints Physical exam (Primary Care) Vital Signs: Last Vital Signs Temp 97.3 F 07/28/24 08:44 Pulse 80 07/28/24 08:44 BP 124/74 07/28/24 08:44 Pulse Ox 97 07/28/24 08:44 Oxygen Delivery Method Room Air 07/28/24 08:44 BMI result Body Mass Index 36.4 Tobacco/Smoking Status: Tobacco use Status Tobacco use date assessed 07/28/24 07/28/24 08:47 Patient Tobacco Use Status Never used Tobacco 07/28/24 08:47 e-Cigarette/Vaping Use Never Used 07/28/24 08:47 Thrive Assessment: Date of Thrive Assessment Date Thrive assessed 07/28/24 07/28/24 08:52 Currently or been in a relationship where the following occur: No concerns reported Const General: cooperative, healthy appearing, comfortable and no acute distress Orientation/consciousness: patient oriented x3 HENMT Head: Yes normocephalic Ears: hearing grossly normal bilaterally General nose exam: Normal external nose present Eyes General: appearance normal, both eyes and all related structures Conjunctivae: conjunctivae normal Neck Neck: Yes full ROM and Yes no lymphadenopathy Chest Chest palpation & inspection: normal inspection of the chest and No rash Breast/axilla palpation: normal palpation of the axillae and no axillary lymphadenopathy Chest/axillae images: 1. Small, mobile, hard tender mass Resp Effort & Inspection: normal respiratory effort Auscultation: clear to auscultation bilaterally, no crackles, no rales, no rhonchi and no wheezes Cardio Rate: regular rate Rhythm: regular rhythm Skin General skin exam: no rashes or lesions noted Neuro General: patient oriented x3 Gait exam (Neuro): Normal gait present Extrem General: Yes normal to inspection, Yes full ROM and No edema Psych Affect: normal affect Attitude: cooperative Insight: Good insight present (Psych) Judgement: Good judgement present (Psych) Coding Level of Care Code Est Pt Level 3 (06002) Diagnoses Left breast mass N63.20 Assessment & Plan Assessment & Plan (1) Left breast mass: Code(s): N63.20 - Unspecified lump in the left breast, unspecified quadrant Category: Medical Plan: I have chosen to proceed with repeat imaging for the suspected lipoma in the patient's left breast due to changes in mass characteristics. This includes an ultrasound and a targeted mammogram of the left breast. These diagnostic tests aim to identify any changes suggestive of progression or other underlying pathologies. The objective is to determine whether the lesion matches the characteristics of a lipoma or if other treatments are warranted. I explained the rationale for further imaging to the patient, indicating the need to periodically assess these lesions. Follow-up and management depend on upcoming diagnostic results. Plan This note was constructed using voice recognition software. While every effort has been made to ensure accuracy and lunch truck driver, still areas may have been included sometimes these areas may affect the content or meeting of the given symptoms. Total time spent caring for the patient today was 20 minutes. This includes time spent before the visit reviewing the chart, time spent during the visit, and time spent after the visit and documentation. Patient was informed and verbally consented to the use of an ambient scribe for clinic note documentation during this visit. Orders: Orders US breast LT complete Today N63.20 - Unspecified lump in the left breast, unspecified quadrant MM tomosynthesis diagnostic LT Today N63.20 - Unspecified lump in the left breast, unspecified quadrant
--- OUTSIDE RECORDS SUMMARY | 2024-07-28 08:47 | XMS_ITS | Clinical Summary ---
Author Organization [facility] Address [address] [place] [address] Phone Care Team Providers Care Used Equipment Sales Representative Name Role Phone Mily Gordon MD Primary Care Provider [phone] Allergies Active Allergy Reactions Criticality Noted Date Comments Levothyroxine Headache Low 03/10/2024 Able to take synthroid, but not generic Morphine Rash Medium 05/16/2014 Medications bisacodyL (DULCOLAX) 5 mg EC tablet Take 2 tabs by mouth right before beginning bowel prep. Follow instructions given by office for timing. 10/10/19 23 Active polyethylene glycol (GoLYTELY) 236-22.74-6.74 -5.86 gram solution Take 240 mL by mouth once for 1 dose. Take 4L by mouth once for one dose. May substitue any PEG. Starting at 6PM the night before your procedure drink 1 8oz glasses at your own pace until rectals run clear. 09/22/19 24 Active SUMAtriptan (IMITREX) 50 mg tablet TAKE 1 TABLET BY MOUTH AT ONSET OF MIGRAINE. MAY REPEAT ONCE AFTER 2 HOURS IF NEEDED 09/01/19 24 Active albuterol HFA (PROAIR HFA ; PROVENTIL HFA ; VENTOLIN HFA) 90 mcg/actuation inhaler INHALE TWO PUFFS EVERY 6 HOURS NEEDED FOR WHEEZING OR SHORTNESS OF BREATH 08/26/19 24 Active cholecalciferol (VITAMIN D-3) 50 mcg (2,000 unit) tablet TAKE ONE TABLET DAILY 10/05/19 22 Active ferrous sulfate 325 mg (65 mg elemental iron) tablet TAKE ONE TABLET DAILY 02/18/20 23 Active busPIRone (BUSPAR) 15 mg tablet TAKE ONE TABLET THREE TIMES DAILY 09/25/19 23 Active sertraline (ZOLOFT) 100 mg tablet TAKE TWO TABLETS EVERY MORNING 03/06/20 Active naproxen (NAPROSYN) 500 mg tablet Take 1 Tablet by mouth 2 times daily as needed for Pain (Take with food.) for up to 30 days. 04/11/20 Active levothyroxine (Synthroid) 150 mcg tablet Take 1 Tablet by mouth daily. 03/06/20 Active loratadine (CLARITIN) 10 mg tablet Take 1 Tablet by mouth daily for 360 days. 03/06/20 Active ARIPiprazole (ABILIFY) 10 mg tablet Take 1 Tablet by mouth daily. 03/06/20 Active medical supply, miscellaneous (PILL SOLAR PANEL TECHNICIAN AND CONTAINER MISC) MISC. DEVICES (PILL SOLAR PANEL TECHNICIAN) MISC 1 Device by Does not apply route Once. 02/15/20 Active incontinence pad, liner, disp pad INCONTINENCE SUPPLY DISPOSABLE ([facility] INCONTINENCE PADS) MISC 1 Each by Does not apply route every 4 hours. Size: Large 02/15/20 Active diclofenac (VOLTAREN) 1 % topical gel APPLY TWO grams TO THE AFFECTED AREA(s) TWICE DAILY 12/04/19 Active cetirizine (ZyrTEC) 10 mg tablet Take 1 Tablet by mouth daily for 360 days. 09/30/19 Active clobetasoL (TEMOVATE) 0.05 % cream To affected area 2 times daily for no more than 1 week. 11/07/19 Active meclizine (ANTIVERT) 25 mg tablet Take 1 tablet by mouth 3 times daily. 09/20/19 Active docusate sodium (COLACE) 100 mg capsule Take 1 Cap by mouth 2 times daily. 03/14/20 Active hydrOXYzine pamoate (VISTARIL) 25 mg capsule Take 1 capsule (25 mg total) by mouth 3 (three) times a day if needed for anxiety. Active losartan (COZAAR) 25 mg tablet Take 1 tablet (25 mg total) by mouth 1 (one) time each day. Active hydrOXYzine HCL (ATARAX) 50 mg tablet Take 1 tablet (50 mg total) by mouth. PRN FOR SLEEP 03/09/20 24 Active Active Problems Problem Noted Date Diagnosed Date Obesity 02/09/2024 Vaginal dryness 01/13/2023 Overview (02/09/2024): Last Assessment & Plan: I encouraged her to try coconut oil for lubricant. Pain of left calf 11/08/2020 Rash 11/06/2020 Tinea corporis 11/06/2020 Vitamin B12 deficiency 11/06/2020 Knee pain, right 03/24/2019 Cough 11/05/2018 Hearing loss, right 02/11/2018 Menorrhagia with irregular cycle 01/18/2018 Overview (02/09/2024): Last Assessment & Plan: Counseled Alina that given her continued heavy menstrual bleeding and obesity as a risk factor for hyperplasia, I would recommend office EMB at her earliest convenience. Also discussed options again for control of AUB. She was most interested in trying her Aygestin again at night to see if she can avoid upset stomach. This is reasonable as this is a relatively atypical SE of this medication. If she has recurrence of her sx, we will talk about it at her EMB appt and consider scheduling for Mirena IUD. She agreed. 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 07/06/2017 Depression 06/12/2016 Allergic rhinitis 03/05/2016 Thyroid nodule 01/02/2016 Carpal tunnel syndrome 06/26/2015 Overview (02/09/2024): Comments: NCS 04/2015 Insomnia 10/27/2014 Immunizations Name Administration Dates Next Due Influenza Quadravalent, MDCK , 0.5ml, preservative free (Flucelvax) 6mo and older 02/10/2020 Tdap Tetanus diptheria acell ular pertussis (Boostrix; Adacel) 7yo and older 01/02/2016 Surgical History Surgery Date Site/Laterality Comments SECTION PROCEDURE: [place] DELIVERY ONLY; COMMENT: x3 CHOLECYSTECTOMY PROCEDURE: HISTORICAL CHOLECYSTECTOMY TUBAL LIGATION PROCEDURE: HISTORICAL TUBAL LIGATION Medical History Medical History Date Comments Obesity DX:Obesity Depression DX:Depression Allergic rhinitis 03/05/2016 DX:Allergic rh initis History of anemia 07/06/2017 DX:History of anemia Carpal tunnel syndrome 06/26/2015 DX:Carpal tunnel syndrome; COMMENT: Comments: NCS 04/2015 Chronic back pain 07/06/2017 DX:Chronic tres k pain Hearing loss, right 02/11/2018 DX:Hearing l oss, right Hypothyroidism 12/08/2017 DX:Hypothyroidis m Insomnia 10/27/2014 DX:Insomnia Menorrhagia with irregular cycle 01/18/2018 DX:Menorrhagia with irregular cycle Thyroid nodule 01/02/2016 DX:Thyroid nodul e Type 2 diabetes mellitus wit h neurological manifestation (CMS/HCC) 07/06/2017 DX:Type 2 diabete s mellitus with neurological manifestation (HCC) Vitamin D deficiency 12/08/2017 DX:Vitamin D deficiency Asthma Anxiety PONV (postoperative nausea a nd vomiting) Hypertension Family History Medical History Relation Name Comments Breast cancer Sister 60 Colon cancer Neg Hx Ovarian cancer Neg Hx Pancreatic cancer Neg Hx Prostate cancer Neg Hx Uterine cancer Neg Hx Relation Name Status Comments Sister 60 Social History Tobacco Use Types Packs/Day Years Used Date Smoking Tobacco: Never Smokeless Tobacco: Never Alcohol Use Standard Drinks/Week Comments No 0 (1 standard drink = 0.6 oz pur e alcohol) Interpersonal Safety Answer Date Record ed Physical Abuse 03/16/2024 Verbal Abuse 03/16/2024 Comments No Sex and Gender Information Value Date Recorded Sex Assigned at Not on file Legal Sex Female 4:31 AM EST Gender Identity Not on file Sexual Orientation Not on file Obstetrics History Para Term AB IAB SAB Ectopic Multiple Livin g Live Births 3 3 3 3 Date Outcome GA Total Labor Labor/2nd/3rd Weight Sex Type Anes PTL Ale A1 A5 Name Clin Term Term Term Last Filed Vital Signs Vital Sign Reading Time Taken Comments Blood Pressure 131/87 03/16/2024 12:46 PM EST Pulse 67 03/16/2024 12:46 PM EST Temperature 36.1 ??C (97 ??F) 03/16/2024 12:26 PM EST Respiratory Rate 16 03/16/2024 12:46 PM EST Oxygen Saturation 95% 03/16/2024 12:36 PM EST Inhaled Oxygen Concentration - - Weight 101 kg (222 lb) 03/16/2024 11:43 AM EST Height 167.6 cm (5' 6 ) 03/16/2024 11:43 AM EST Body Mass Index 35.83 03/16/2024 11:43 AM EST Plan of Treatment Health Maintenance Due Date Last Done Comments Diabetes: Annual GFR (Glomerular Filtration Rate) 1973 Diabetes: Annual Foot Exam 1983 Diabetes: Annual Retina Eye Exam 1983 Hepatitis B Vaccines (1 of 3 - 19+ 3-dose series) 1992 Pneumococcal Vaccine: 50+ Years (1 of 2 - PCV) 1992 Pneumococcal Vaccine: Pediatrics (0 to 5 Years) and At-Risk Patients (6 to 64 Years) (1 of 2 - PCV) 1992 Depression Screening 04/19/2022 HIV Screening 04/19/2022 Hepatitis C Screening 04/19/2022 Medicare Annual Wellness Visit 04/19/2022 Social Influencers of Health Screening 04/19/2022 Diabetes: Annual Urine Albumin-Creatinine Ratio (uACR) 04/20/2022 07/21/2018 Diabetes: Blood Sugar Control Test (HGBA1C) 04/20/2022 06/17/2021 Zoster Vaccines (1 of 2) 2023 COVID-19 Vaccine ( season) 2024 05/06/2021, 10/01/2020, 09/01/2020 Cholesterol Screening (Lipid Panel) 03/15/2025 03/15/2020 DTaP,Tdap,and Td Vaccines (2 - Td or Tdap) 01/01/2026 01/02/2016 Breast Cancer Screening 04/21/2026 04/21/20, 03/25/2024, 03/19/2023, Additional history exists Cervical Cancer Screening: HPV 01/14/2028 01/13/2023 Colorectal Cancer Screening: Colonoscopy 03/16/2034 03/16/2024 Influenza Vaccine Completed 02/18/2024, , 04/16/2022, Additional history exists HIB Vaccines Aged Out No longer eligi ble based on patient's age to complete this topic HPV Vaccines Aged Out No longer eligi ble based on patient's age to complete this topic Hepatitis A Vaccines Aged Out No long er eligible based on patient's age to complete this topic IPV Vaccines Aged Out No longer eligi ble based on patient's age to complete this topic MMR Vaccines Aged Out No longer eligi ble based on patient's age to complete this topic Meningococcal ACWY Vaccine Aged Out N o longer eligible based on patient's age to complete this topic Meningococcal B Vacine Aged Out No lo nger eligible based on patient's age to complete this topic RSV Immunization Patients Under 20 months Aged Out No longer eligible based on patient's age to complete this topic Varicella Vaccines Aged Out No longer eligible based on patient's age to complete this topic Procedures Procedure Name Priority Date/Time Associated Diagnosis Comments MG MAMMO DIGITAL DIAGNOSTIC W GIANNI LEFT Routine 04/21/2024 9:20 AM EST Abnormal mammogram COLONOSCOPY Routine 03/16/2024 12:25 PM EST Encounter for screening for malignant neoplasm of colon HM HPV Routine 01/13/2023 HEMOGLOBIN A1C Routine 06/17/2021 LIPID PANEL Routine 03/15/2020 HM URINE ALBUMIN CREATININE RATIO Routine 07/21/2018 from Last 3 Months or Most Recently Relevant to Health Maintenance Results * MG Mammo Digital Diagnostic w Gianni Left (04/21/2024 9:20 AM EST) Anatomical Region Laterality Modality Breast Left Mammography 04/21/2024 9:45 AM EST Impressions 04/21/2024 9:50 AM EST LEFT BREAST: Negative, no evidence of malignancy. Normal interval follow-up is recommended in 12 months. Findings and recommendations were conveyed to the patient via system technologist. ?? BREAST DENSITY: B - There are scattered areas of fibroglandular density. ?? BI-RADS CATEGORY: 1 - NEGATIVE RECOMMENDATION: Mammography: Screening bilateral mammogram is recommended in 1 year. Mammo Location: [facility], [address] [place] [address], [id number], . -------- FINAL REPORT -------- Dictated By: Gary Dao Dictated Date: 04/21/2024 09:45 ET Assigned Physician: Gary Dao Reviewed and Electronically Signed By: Gary Dao Signed Date: 04/21/2024 09:50 ET Workstation ID: [id number] Transcribed By: Self Edit Transcribed Date: 04/21/2024 09:45 ET Narrative 04/21/2024 9:50 AM EST HISTORY: Callback from screening for left breast retroareolar focal asymmetry. STUDY: Unilateral left diagnostic mammography with tomosynthesis and CAD TECHNIQUE: Unilateral left digital diagnostic mammography is obtained and read in conjunction with computer-aided detection. ??Tomosynthesis as well as 2-D C view imaging were obtained. Spot compression Tomosynthesis images were also obtained COMPARISON: Comparison made to multiple prior, most recent March 25, 2024, and most remote January 29, 2016. LEFT BREAST: ??Previously suggested focal asymmetry does not persist on today's images obtained with nipple in profile. No significant masses are seen. ??The appearance of the nipple/subareolar region is stable from multiple prior studies as far back as 2018. Procedure Note Gary Dao MD - 04/21/2024 HISTORY: Callback from screening for left breast retroareolar focalasymmetry. STUDY: Unilateral left diagnostic mammography with tomosynthesis and CAD TECHNIQUE: Unilateral left digital diagnostic mammography is obtained andread in conjunction with computer-aided detection. Tomosynthesis as wellas 2-D C view imaging were obtained. Spot compression Tomosynthesis imageswere also obtained COMPARISON: Comparison made to multiple prior, most recent March, and most remote January 29, 2016. LEFT BREAST: Previously suggested focal asymmetry does not persist ontoday's images obtained with nipple in profile. No significant masses areseen. The appearance of the nipple/subareolar region is stable frommultiple prior studies as far back as 2018. IMPRESSION: LEFT BREAST: Negative, no evidence of malignancy. Normal intervalfollow-up is recommended in 12 months. Findings and recommendations were conveyed to the patient via mammographytechnologist. BREAST DENSITY: B - There are scattered areas of fibroglandular density. BI-RADS CATEGORY: 1 - NEGATIVE RECOMMENDATION: Mammography: Screening bilateral mammogram is recommended in 1 year. Mammo Location: [facility], [address] [place] [address], [id number], . -------- FINAL REPORT -------- Dictated By: Gary Dao Dictated Date: 04/21/2024 09:45 ET Assigned Physician: Gary Dao Reviewed and Electronically Signed By: Gary Dao Signed Date: 04/21/2024 09:50 ET Workstation ID: [id number] Transcribed By: Self Edit Transcribed Date: 04/21/2024 09:45 ET Mily Gordon MD IMG BI PROCEDURES Final Result * COLONOSCOPY Anesthesia - MAC; [facility] ENDOSCOPY (03/16/2024 12:25 PM EST) Anatomical Region Laterality Modality Endoscopy 03/16/2024 12:1 0 PM EST Narrative 03/16/2024 12:25 PM EST [facility] GI Patient Name: Alina Moody Procedure Date: 03/16/2024 12:10 PM ? Date of : 1975 ?Age: 48 Room: ROOM 16 ? Gender: Female Note Status: Finalized ?Attending MD: Chloe Hinson DO, [id number] Procedure Date No Time: 03/16/2024 ? Procedure: ? Colonoscopy Indications: ? Screening for colorectal malignant neoplasm Providers: ? Chloe Hinson DO Referring MD: ?Lyn Gordon PA-C Medicines: ? Monitored Anesthesia Care Complications: ? No immediate complications. Estimated blood loss: None. Estimated Blood Loss: ? Estimated blood loss: none. Procedure: ? Pre-Anesthesia Assessment: ? - - Prior to the procedure, a History and Physical was ? performed, and patient medications and allergies were ? reviewed. The patient is competent. The risks and ? benefits of the procedure and the sedation options and ? risks were discussed with the patient. All questions ? were answered and informed consent was obtained. ? Patient identification and proposed procedure were ? verified by the physician, the nurse, the ? anesthesiologist, the clerical support and the park maintenance technician ? in the pre-procedure area in the endoscopy suite. ? Mental Status Examination: alert and oriented. Airway ? Examination: normal oropharyngeal airway and neck ? mobility. Respiratory Examination: clear to ? auscultation. CV Examination: normal. Prophylactic ? Antibiotics: The patient does not require prophylactic ? antibiotics. Prior Anticoagulants: The patient has ? taken no anticoagulant or antiplatelet agents. ASA ? Grade Assessment: II - A patient with severe systemic ? disease. After reviewing the risks and benefits, the ? patient was deemed in satisfactory condition to ? undergo the procedure. The anesthesia plan was to use ? monitored anesthesia care (MAC). Immediately prior to ? administration of medications, the patient was ? re-assessed for adequacy to receive sedatives. The ? heart rate, respiratory rate, oxygen saturations, ? blood pressure, adequacy of pulmonary ventilation, and ? response to care were monitored throughout the ? procedure. The physical status of the patient was ? re-assessed after the procedure. ? After I obtained informed consent, the scope was ? passed under direct vision. Throughout the procedure, ? the patient's blood pressure, pulse, and oxygen ? saturations were monitored continuously. The ? Colonoscope was introduced through the anus and ? advanced to the cecum, identified by appendiceal ? orifice and ileocecal valve. The colonoscopy was ? performed without difficulty. The patient tolerated ? the procedure well. The quality of the bowel ? preparation was good. Findings: ?The perianal and digital rectal examinations were ? normal. ? The exam was otherwise without abnormality on direct ? and retroflexion views. Impression: ?- The examination was otherwise normal on direct and ? retroflexion views. ? - No specimens collected. Recommendation: ?- - Discharge patient to home. ? - Resume previous diet. ? - Continue present medications. ? - Repeat colonoscopy in 10 years for screening ? purposes. ? - Return to primary care physician. Procedure Code(s): ? --- Professional --- ? G0121, Colorectal cancer screening; colonoscopy on ? individual not meeting criteria for high risk Diagnosis Code(s): ? --- Professional --- ? Z12.11, Encounter for screening for malignant neoplasm ? of colon CPT copyright 2020 [employer]. All rights reserved. The codes documented in this report are preliminary and upon hydraulic repairer review may be revised to meet current compliance requirements. CHLOE HINSON Chloe Hinson DO 03/16/2024 12:25:36 PM This report has been signed electronically.Chloe Hinson DO Number of Addenda: 0 Note Initiated On: 03/16/2024 12:10 PM Scope Withdrawal Time: 0 hours 6 minutes 6 seconds Scope In: 12:13:45 PM Scope Out: 12:23:32 PM ? Endoscopy Department at [facility] - [address] [place] [address], ? [place] [id number] Procedure Note Chloe Hinson DO - 03/16/2024 [facility] GI Patient Name: Alina Moody Procedure Date: 03/16/2024 12:10 PM Date of : 1975 Age: 48 Room: ROOM 16 Gender: Female Note Status: Finalized Attending MD: Chloe Hinson DO,[id number] Procedure Date No Time: 03/16/2024 Procedure: Colonoscopy Indications: Screening for colorectal malignant neoplasm Providers: Chloe Hinson DO Referring MD: Lyn Gordon PA-C Medicines: Monitored Anesthesia Care Complications: No immediate complications. Estimated blood loss:None. Estimated Blood Loss: Estimated blood loss: none. Procedure: Pre-Anesthesia Assessment: - - Prior to the procedure, a History and Physicalwas performed, and patient medications and allergieswere reviewed. The patient is competent. The risks and benefits of the procedure and the sedation optionsand risks were discussed with the patient. Allquestions were answered and informed consent was obtained. Patient identification and proposed procedure were verified by the physician, the nurse, the anesthesiologist, the clerical support and thetechnician in the pre-procedure area in the endoscopy suite. Mental Status Examination: alert and oriented.Airway Examination: normal oropharyngeal airway and neck mobility. Respiratory Examination: clear to auscultation. CV Examination: normal. Prophylactic Antibiotics: The patient does not requireprophylactic antibiotics. Prior Anticoagulants: The patient has taken no anticoagulant or antiplatelet agents. ASA Grade Assessment: II - A patient with severesystemic disease. After reviewing the risks and benefits,the patient was deemed in satisfactory condition to undergo the procedure. The anesthesia plan was touse monitored anesthesia care (MAC). Immediately priorto administration of medications, the patient was re-assessed for adequacy to receive sedatives. The heart rate, respiratory rate, oxygen saturations, blood pressure, adequacy of pulmonary ventilation,and response to care were monitored throughout the procedure. The physical status of the patient was re-assessed after the procedure. After I obtained informed consent, the scope was passed under direct vision. Throughout theprocedure, the patient's blood pressure, pulse, and oxygen saturations were monitored continuously. The Colonoscope was introduced through the anus and advanced to the cecum, identified by appendiceal orifice and ileocecal valve. The colonoscopy was performed without difficulty. The patient tolerated the procedure well. The quality of the bowel preparation was good. Findings: The perianal and digital rectal examinations were normal. The exam was otherwise without abnormality ondirect and retroflexion views. Impression: - The examination was otherwise normal on directand retroflexion views. - No specimens collected. Recommendation: - - Discharge patient to home. - Resume previous diet. - Continue present medications. - Repeat colonoscopy in 10 years for screening purposes. - Return to primary care physician. Procedure Code(s): --- Professional --- G0121, Colorectal cancer screening; colonoscopy on individual not meeting criteria for high risk Diagnosis Code(s): --- Professional --- Z12.11, Encounter for screening for malignantneoplasm of colon CPT copyright 2020 [employer]. All rights reserved. The codes documented in this report are preliminary and upon hydraulic repairer reviewmay be revised to meet current compliance requirements. CHLOE HINSON Chloe Hinson DO 03/16/2024 12:25:36 PM This report has been signed electronically.Chloe Hinson DO Number of Addenda: 0 Note Initiated On: 03/16/2024 12:10 PM Scope Withdrawal Time: 0 hours 6 minutes 6 seconds Scope In: 12:13:45 PM Scope Out: 12:23:32 PM Endoscopy Department at [address] [id number] Result [facility] Chloe Hinson DO GI~PROCEDURE ORDERABLES Final Re sult * Cervical Cancer Screening: HPV (01/13/2023) Pathologist [facility] Cervical Cancer Screening: HPV abstracted, negative Result [facility] Historical Provider HEALTH MAINTENANCE Final Result * Hemoglobin A1c (06/17/2021) Pathologist [facility] Hemoglobin A1C 6.1 <=6.5 % Blood Venous blood specimen / Unknown Result [facility] Historical Provider LAB BLOOD ORDERABLES Cecilia l Result * Lipid panel (03/15/2020) Pathologist [facility] LDL/HDL Ratio 3 0 - 4 Triglycerides 92 0 - 150 mg/dL Cholesterol 154 0 - 200 mg/dL HDL 47 >=40 mg/dL LDL Cholesterol 89 0 - 100 mg/dL Blood Venous blood specimen / Unknown Result [facility] Historical Provider LAB BLOOD ORDERABLES Cecilia l Result * Urine Albumin Creatinine Ratio (07/21/2018) Pathologist [facility] Urine Albumin Creatinine Ratio abstracted Result [facility] Historical Provider HEALTH MAINTENANCE Final Result from Last 3 Months or Most Recently Relevant to Health Maintenance Insurance [employer] MEDICARE Member Subscriber Plan / Payer (Ef fective 2021-Present) Name:Alina Chapman Relation to Subscriber:Self Name:Alina Chapman Payer ID:[id number] Group ID:[id number] Type:Not on file Address: [address] [place] [address] MEDICAID - [place] Care Teams Used Equipment Sales Representative Relationship Specialty Start Date End Date Mily Gordon MD [address] [facility] , [address] [employer] D/B[facility]A: [facility] [place], [place] PCP - General 02/09/24
== END 2024-07-28 09:54 | disposition home or self-care (01) ==
LOC: HO.HMCH 08:32
PROVIDERS: PCP Internal Medicine
DX: N63.20 Unspecified lump in the left breast, unspecified quadrant (principal)

== ENCOUNTER → 2024-07-28 08:32 | Outpatient (BNVA) | payer OTHER, SELFPAY | PROVIDERS: PCP Internal Medicine | DX: N63.22 Unspecified lump in the left breast, upper inner quadrant (principal) | CPT/HCPCS: 99212 ==

== ENCOUNTER 2024-08-18 07:08 | Outpatient (REF) | payer OTHER, SELFPAY ==
[2024-08-21 14:12] LABS: TS Negative Control Passed; TS Panel A 2; TS Panel B 0; TS Positive Control Passed; TSpotTB Negative (Negative)
== END 2024-08-18 07:09 | disposition home or self-care (01) ==
LOC: HO.LAB 07:08
PROVIDERS: PCP Internal Medicine; Visit Provider Internal Medicine
DX: Z11.1 Encounter for screening for respiratory tuberculosis (principal)
CPT/HCPCS: 36415; 86481

== ENCOUNTER 2024-08-23 11:22 | Outpatient (REF) | payer OTHER, SELFPAY ==
--- NOTE | ~2024-08-23 | MM_ITS ---
EXAMINATION: MM DIAGNOSTIC DIGITAL BREAST TOMOSYNTHESIS, LEFT Limited left breast ultrasound. CLINICAL INFORMATION: Palpable left breast lump. COMPARISON: Mammography: [facility] on PACS. TECHNIQUE: Digital breast tomosynthesis is performed in both the craniocaudal and mediolateral oblique views along with computer-aided detection (CAD). Synthesized 2D images are generated from the tomosynthesis. FINDINGS: There are scattered areas of fibroglandular density (ACR BI-RADS breast composition Category b). BB marker in the central inner left breast posterior depth with an underlying focal asymmetry. No suspicious calcifications or other abnormal findings. Targeted color Doppler ultrasound scanning in the area the patient's palpable lump from 7-11 o'clock demonstrates at 10:00 15 cm from nipple an intradermal hypoechoic oval sebaceous cyst/epidermal inclusion cyst measuring 8 x 4 x 8 mm. MM/MM tomosynthesis diagnostic LT IMPRESSION: Sebaceous cyst/epidermal inclusion cyst at 10:00 15 cm from the nipple in the area the patient's palpable lump. Benign. Recommend clinical evaluation and follow-up. ASSESSMENT: BI-RADS BI-RADS 2 - Benign Findings RECOMMENDATION: 1 year F/U Results were provided to the patient at time of visit by the technologist. This patient's information was entered into a reminder system with a target due date for their next mammogram. Electronically signed by: Ellen Bailey DO 08/23/2024 01:51 PM EDT
--- OUTSIDE RECORDS SUMMARY | 2024-08-23 14:02 | XMS_ITS | Clinical Summary ---
Author Organization [facility] Address [address] [place] [address] Phone Care Team Providers Care Hospitality Coordinator Name Role Phone Mily Gordon MD Primary Care Provider [phone] Allergies Active Allergy Reactions Criticality Noted Date Comments Levothyroxine Headache Low 03/10/2024 Able to take synthroid, but not generic Morphine Rash Medium 05/16/2014 Medications bisacodyL (DULCOLAX) 5 mg EC tablet Take 2 tabs by mouth right before beginning bowel prep. Follow instructions given by office for timing. 023 Active polyethylene glycol (GoLYTELY) 236-22.74-6.74 -5.86 gram solution Take 240 mL by mouth once for 1 dose. Take 4L by mouth once for one dose. May substitue any PEG. Starting at 6PM the night before your procedure drink 1 8oz glasses at your own pace until rectals run clear. 024 Active SUMAtriptan (IMITREX) 50 mg tablet TAKE 1 TABLET BY MOUTH AT ONSET OF MIGRAINE. MAY REPEAT ONCE AFTER 2 HOURS IF NEEDED 024 Active albuterol HFA (PROAIR HFA ; PROVENTIL HFA ; VENTOLIN HFA) 90 mcg/actuation inhaler INHALE TWO PUFFS EVERY 6 HOURS NEEDED FOR WHEEZING OR SHORTNESS OF BREATH 024 Active ferrous sulfate 325 mg (65 mg elemental iron) tablet TAKE ONE TABLET DAILY 023 Active busPIRone (BUSPAR) 15 mg tablet TAKE ONE TABLET THREE TIMES DAILY 023 Active sertraline (ZOLOFT) 100 mg tablet TAKE TWO TABLETS EVERY MORNING 10/27/2 022 Active naproxen (NAPROSYN) 500 mg tablet Take 1 Tablet by mouth 2 times daily as needed for Pain (Take with food.) for up to 30 days. Active levothyroxine (Synthroid) 150 mcg tablet Take 1 Tablet by mouth daily. Active loratadine (CLARITIN) 10 mg tablet Take 1 Tablet by mouth daily for 360 days. Active ARIPiprazole (ABILIFY) 10 mg tablet Take 1 Tablet by mouth daily. Active medical supply, miscellaneous (PILL HEEL SEAT SANDER AND CONTAINER MISC) MISC. DEVICES (PILL HEEL SEAT SANDER) MISC 1 Device by Does not apply route Once. Active incontinence pad, liner, disp pad INCONTINENCE SUPPLY DISPOSABLE ([facility] INCONTINENCE PADS) MISC 1 Each by Does not apply route every 4 hours. Size: Large Active diclofenac (VOLTAREN) 1 % topical gel APPLY TWO grams TO THE AFFECTED AREA(s) TWICE DAILY Active cetirizine (ZyrTEC) 10 mg tablet Take 1 Tablet by mouth daily for 360 days. Active clobetasoL (TEMOVATE) 0.05 % cream To affected area 2 times daily for no more than 1 week. Active meclizine (ANTIVERT) 25 mg tablet Take 1 tablet by mouth 3 times daily. Active docusate sodium (COLACE) 100 mg capsule Take 1 Cap by mouth 2 times daily. Active hydrOXYzine pamoate (VISTARIL) 25 mg capsule Take 1 capsule (25 mg total) by mouth 3 (three) times a day if needed for anxiety. Active losartan (COZAAR) 25 mg tablet Take 1 tablet (25 mg total) by mouth 1 (one) time each day. Active hydrOXYzine HCL (ATARAX) 50 mg tablet Take 1 tablet (50 mg total) by mouth. 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 ([facility] V24, [facility] V28) 07/06/2017 Depression 06/12/2016 Allergic rhinitis 03/05/2016 Thyroid nodule 01/02/2016 Carpal tunnel syndrome 06/26/2015 Overview (02/09/2024): Comments: NCS 04/2015 Insomnia 10/27/2014 Immunizations Name Administration Dates Next Due Influenza Quadravalent, MDCK , 0.5ml, preservative free (Flucelvax) 6mo and older 02/10/2020 Tdap Tetanus diptheria acell ular pertussis (Boostrix; Adacel) 7yo and older 01/02/2016 Surgical History Surgery Date Site/Laterality Comments SECTION PROCEDURE: CO DELIVERY ONLY; COMMENT: x3 CHOLECYSTECTOMY PROCEDURE: HISTORICAL [...] 2 diabetes mellitus wit h neurological manifestation (CMS/HCC V24, CMS/HCC V28) 07/06/2017 DX:Type 2 diabetes mellitus with neurological manifestation (HCC) Vitamin D [...] age to complete this topic Meningococcal B Vaccine Aged Out No l onger eligible based on patient's age to complete [...] recommendations were conveyed to the patient via pet technologist. ?? BREAST DENSITY: B - There are scattered areas of fibroglandular density. ?? BI-RADS CATEGORY: 1 - NEGATIVE RECOMMENDATION: Mammography: Screening bilateral mammogram is recommended in 1 year. Mammo Location: [facility], [address] [place] [address], [id number], . -------- FINAL REPORT -------- Dictated By: Gary Dao Dictated Date: 04/21/2024 09:45 ET Assigned Physician: Gary Dao Reviewed and Electronically Signed By: Gary Dao Signed Date: 04/21/2024 09:50 ET Workstation ID: [id number] Transcribed By: Self Edit Transcribed Date: 04/21/2024 [...] is recommended in 1 year. Mammo Location: [facility], [address] [place] [address], [id number], . -------- FINAL REPORT -------- Dictated By: Gary Dao Dictated Date: 04/21/2024 09:45 ET Assigned Physician: Gary Dao Reviewed and Electronically Signed By: Gary Dao Signed Date: 04/21/2024 09:50 ET Workstation ID: [id number] Transcribed By: Self Edit Transcribed Date: 04/21/2024 09:45 ET Mily Gordon MD IM BI PROCEDURES Final Result * COLONOSCOPY Anesthesia - MAC; [facility] [[email or web address]] ENDOSCOPY (03/16/2024 12:25 PM EST) Anatomical Region Laterality Modality Endoscopy 03/16/2024 12:1 0 PM EST Narrative 03/16/2024 12:25 PM EST [facility] GI Patient Name: Alina Moody Procedure Date: 03/16/2024 12:10 PM ? Date of : 1975 ?Age: 48 Room: ROOM 16 ? Gender: Female Note Status: Finalized ?Attending MD: Chloe Hinson DO, [id number] Procedure Date No Time: 03/16/2024 ? Procedure: [...] physician, the nurse, the ? anesthesiologist, the consulting practice director and the donor support technician ? in the pre-procedure area in [...] malignant neoplasm ? of colon CPT copyright 202 [employer]. All rights reserved. The codes documented in this report are preliminary and upon heating fixture tender review may be revised to meet current compliance requirements. CHLOE HINSON Chloe Hinson DO 03/16/2024 12:25:36 PM This report has been signed electronically.Chloe Hinson DO Number of Addenda: 0 Note Initiated On: 03/16/2024 12:10 PM Scope Withdrawal Time: 0 hours 6 minutes 6 seconds Scope In: 12:13:45 PM Scope Out: 12:23:32 PM ? Endoscopy Department at [facility] - [address] [place] [address], ? [place] [address] Procedure Note Chloe Hinson DO - 03/16/2024 [facility] GI Patient Name: Alina Moody Procedure Date: 03/16/2024 12:10 PM Date of : 1975 Age: 48 Room: ROOM 16 Gender: Female Note Status: Finalized Attending MD: Chloe Hinson DO,[id number] Procedure Date No Time: 03/16/2024 Procedure: Colonoscopy [...] the physician, the nurse, the anesthesiologist, the consulting practice director and thetechnician in the pre-procedure area in [...] for malignantneoplasm of colon CPT copyright 2020 [employer]. All rights reserved. The codes documented in this report are preliminary and upon heating fixture tender reviewmay be revised to meet current compliance requirements. CHLOE HINSON Chloe Hinson DO 03/16/2024 12:25:36 PM This report has been signed electronically.Chloe Hinson DO Number of Addenda: 0 Note Initiated On: 03/16/2024 12:10 PM Scope Withdrawal Time: 0 hours 6 minutes 6 seconds Scope In: 12:13:45 PM Scope Out: 12:23:32 PM Endoscopy Department at [address] [address] Result [facility] Chloe Hinson DO GI~PROCEDURE ORDERABLES Final Re sult * Cervical Cancer Screening: HPV (01/13/2023) Pathologist [facility] Cervical Cancer Screening: HPV abstracted, negative Result [facility] Historical Provider HEALTH MAINTENANCE Final Result * Hemoglobin A1c (06/17/2021) [facility] Hemoglobin A1C 6.1 <=6.5 % Blood Venous blood specimen / Unknown Result [facility] Provider LAB BLOOD ORDERABLES Cecilia l Result * Lipid panel (03/15/2020) [facility] LDL/HDL Ratio 3 0 - 4 Triglycerides 92 0 - 150 mg/dL Cholesterol 154 0 - 200 mg/dL HDL 47 >=40 mg/dL LDL Cholesterol 89 0 - 100 mg/dL Blood Venous blood specimen / Unknown Result [facility] Historical Provider LAB BLOOD ORDERABLES Cecilia l Result * Urine Albumin Creatinine Ratio (07/21/2018) [facility] Urine Albumin Creatinine Ratio abstracted Result [facility] Historical Provider HEALTH MAINTENANCE Final Result from Last 3 Months or Most Recently Relevant to Health Maintenance Insurance [facility] MEDICARE Member Subscriber Plan / Payer (Ef fective 2021-Present) Name:Alina Chapman Relation to Subscriber:Self Name:Alina Chapman Payer ID:[id number] Group ID:[id number] Type:Not on file Address: [address] [place] [id number] MEDICAID - [place] Care Teams Hospitality Coordinator Relationship Specialty Start Date End Date Mily Gordon MD 2 [facility] , [facility] [address] [facility] Physician Associ D/B/A: [facility] PCP - General 02/09/24
== END 2024-08-23 11:23 | disposition home or self-care (01) ==
LOC: HO.MAMMO 11:22
PROVIDERS: PCP Internal Medicine; Visit Provider Internal Medicine
DX: N63.22 Unspecified lump in the left breast, upper inner quadrant (principal)
CPT/HCPCS: 76642; 77061; 77065

== ENCOUNTER → 2024-08-23 11:45 | Outpatient (BNV) | payer OTHER, SELFPAY | PROVIDERS: PCP Internal Medicine; Visit Provider Internal Medicine | DX: N63.25 Unspecified lump in the left breast, overlapping quadrants (principal) | CPT/HCPCS: 76642; 77065; G0279 ==

== ENCOUNTER 2024-08-30 08:04 | Outpatient (AMB) | payer OTHER, SELFPAY ==
--- NOTE | 2024-08-30 08:12 | MHC.PC.OV ---
Vital Signs 08/30/24 08:15 Height 5 ft 5.75 in Weight 222 lb BMI 36.1 BP 122/86 Blood Pressure Location Lt brachial Position Sitting Intake Visit Reasons: Annual Exam Intake Note: Patient here for an annual physical exam Daytime Caregiver Required: No Accompanied by: Self / Same As Patient Allergies morphine Adverse Reaction (Severe, Verified 08/30/24 08:26) Rash levothyroxine Adverse Reaction (Intermediate, Verified 08/30/24 08:26) Headache Medication List - Last Reconciled 08/30/24 by Mily Gordon MD albuterol sulfate 90 mcg/actuation 0 mcg inhalation aripiprazole 10 mg PO DAILY 90 days blood pressure monitor As directed buspirone mg PO cholecalciferol (vitamin D3) (Vitamin D3) 50 mcg PO DAILY 90 days cyclobenzaprine 5 mg PO BEDTIME diclofenac sodium 1% 2 grams topical QID 30 days ferrous sulfate 325 mg PO Q OTHER DAY 30 days heating pads As directed hydroxyzine HCl 25 mg PO BEDTIME incontinence pad, liner, disp Use 1 pad once a day loperamide 2 mg PO Q6H PRN 2 days loratadine 10 mg PO DAILY PRN 90 days losartan 25 mg PO DAILY 90 days naproxen 500 mg PO BID PRN [neck pillow As directed] sertraline 100 mg PO BID sumatriptan succinate 50 mg PO DIRECTED PRN 30 days Synthroid (levothyroxine) 150 mcg PO DAILY 30 days NS syringe with needle ([employer] Luer Lock Syringe with needle) Use 1 needle once a month triamcinolone acetonide intranasal underpads (Bed Underpads) As directed [wipes As directed] Tobacco use date assessed: 07/28/24 Dental Screening Dental Screen Date: 07/28/24 HPI HPI Comments History of Present Illness Details The patient is a 49-year-old female presenting for her annual physical examination. She is currently managing essential hypertension with Losartan. Her recent mammogram was normal, and her last colonoscopy indicates she is due for the next in . Her history of Roxanne's Thyroiditis, treated with Synthroid, is under evaluation for dosage adjustments. Pernicious anemia necessitates Vitamin B12 level verification. The patient manages major depressive disorder with anxiety, expressed through a PHQ-9 score of 12, using Abilify and Sertraline with psychiatric oversight. Regarding allergies, she is allergic to morphine and utilizes albuterol for asthma. Weight management concerns are present with an interest in BMI reduction. Family history includes cancer and renal disease. Surgical history reveals gallbladder removal and three sections. No tobacco or alcohol use is reported. - Recent mammogram this month: results normal - Colonoscopy in March 2024: normal; next due March 2034 - History of benign breast lump; recent mammogram was clear - Vitamin B12 level check for pernicious anemia - Thyroid function to be monitored for possible Synthroid adjustment - Routine hypertension management with Losartan - Anemia monitoring through regular hemoglobin checks - Pap smears are up to date. [facility] Medical History Sciatica of right side without back pain Obesity (BMI 30-39.9) Degenerative disc disease, lumbar Osteoarthritis involving multiple joints on both sides of body Trapezius muscle strain Shoulder pain, right Surgical History History of cholecystectomy History of Family History Mother Lung cancer Father Hypercholesteremia Kidney stone Renal failure Family/Other Mental health disorder Sister Lupus Social History Household Members: Spouse and Children Housing: House Alcohol intake: never Patient Tobacco Use Status: Never used Tobacco e-Cigarette/Vaping Use: Never Used Second Hand Smoke Exposure: No service: No Current occupational status: unemployed and disabled Cognitive needs: No Hearing needs: No Vision needs: Yes Questionnaire PHQ-9 Over the last 2 weeks, how often have you been bothered by any of the following problems? 1. Little interest or pleasure in doing things: several days 2. Feeling down, depressed, or hopeless: more than half the days 3. Trouble falling or staying asleep, or sleeping too much: more than half the days 4. Feeling tired or having little energy: more than half the days 5. Poor appetite or overeating: not at all 6. Feeling bad about yourself - or that you are a failure or have let yourself or your family down: more than half the days 7. Trouble concentrating on things, such as reading the newspaper or watching television: more than half the days 8. Moving or speaking so slowly that other people could have noticed. Or the opposite - being so fidgety or restless that you have been moving around a lot more than usual: several days 9. Thoughts that you would be better off or of hurting yourself in some way: not at all Total score: 12 Depression Screening Interpretation: Positive Depression Screening Follow-up: Existing condition, In treatment, Community Mental Health Worker F/U and Follow-up Visit Requested Depression Screening Done: Yes 88563 - PHQ-9 Billing: Yes Source: Developed by Drs. Wilton Caruso, Juliane Sneed, Stefan Ambrose and colleagues, with an educational shawna from [employer]. Thrive Questionnaire Date Thrive assessed: 08/30/24 I am a: Patient What is your living situation today?: I have a steady place to live Within the past 12 months, did the food you bought not last and you didn't have the money to get more?: Sometimes True Within the past 12 months, did you worry whether your food would run out before you got money to buy more?: Sometimes True Do you have trouble paying for medicines?: No Do you have trouble getting transportation to medical appointments?: No Do you have trouble paying your heating and electricity bill?: Yes Do you have trouble taking care of your child, family member or friend?: No Do you have trouble with day-to-day activities such as bathing, preparing meals, shopping, managing finances, etc.?: Yes Are you currently unemployed and looking for a job?: No Are you interested in more education?: I choose not to answer this question Please select the resources that you would like help with: Utilities Currently or been in a relationship where the following occur: No concerns reported THRIVE Score: 3 AUDIT C Alcohol Use Questionnaire (AUDIT-C) 1. How often do you have a drink containing alcohol?: Never Total Score: 0 Score Reviewed/Action Taken: No MANDY-7 AMB Questionnaire MANDY-7 Date MANDY - 7 assessed: 08/30/24 Feeling nervous, anxious, or on edge: 2 = More than half the days Not being able to stop or control worryin = More than half the days Worrying too much about different things: 2 = More than half the days Trouble relaxin = Nearly every day Being so restless that it is hard to sit still: 2 = More than half the days Becoming easily annoyed or irritable: 3 = Nearly every day Feeling afraid as if something awful might happen: 2 = More than half the days Total MANDY-7 score (0-4 normal; 5-9 mild; 10-14 moderate; 15-21 severe): 16 Source: Developed by Drs. Wilton Caruso, Juliane Sneed, Stefan Ambrose and colleagues, with an educational shawna from [employer]. MANDY-7 Assessment Billing MANDY-7 Assessment Tool: MANDY-7 Assessment 48713 Review of Systems Const All systems reviewed & are unremarkable except as noted in HPI and below Card Denies chest pain at rest, Denies chest pain with activity, Denies edema, Denies irregular heart rhythm, Denies claudication, Denies dyspnea, Denies dyspnea on exertion, Denies orthopnea, Denies paroxysmal nocturnal dyspnea and Denies slow heart rate Resp Denies cough, Denies dyspnea and Denies dyspnea on exertion GI Denies abdominal pain, Denies change in bowel habits, Denies excessive flatus, Denies nausea and Denies vomiting Denies urinary incontinence, Denies urinary hesitancy and Denies urinary urgency Neuro Denies lack of coordination Physical exam (Primary Care) Vital Signs: Last Vital Signs BP 122/86 08/30/24 08:15 BMI result Body Mass Index 36.1 BMI Assessment/Plan discussion: High BMI High, discussed plan: lifestyle, weight reduction, dietary and physical activity Tobacco/Smoking Status: Tobacco use Status Tobacco use date assessed 07/28/24 08/30/24 08:19 Patient Tobacco Use Status Never used Tobacco 08/30/24 08:19 e-Cigarette/Vaping Use Never Used 08/30/24 08:19 PHQ-9: PHQ-9 Score PHQ-9: Total score 12 08/30/24 08:19 Depression Screening Interpretation: Positive Depression Screening Follow-up: Existing condition, In treatment, Community Mental Health Worker F/U and Follow-up Visit Requested Thrive Assessment: Date of Thrive Assessment Date Thrive assessed 08/30/24 08/30/24 08:19 Currently or been in a relationship where the following occur: No concerns reported HENMT Head: Yes normal to inspection, Yes normocephalic and Yes atraumatic Ears: external ears normal Eyes General: appearance normal, both eyes and all related structures Eyelids: Yes eyelids normal Conjunctivae: conjunctivae normal Neck Neck: Yes normal visual inspection and Yes supple Resp Effort & Inspection: normal respiratory effort Auscultation: clear to auscultation bilaterally Cardio Jugular venous distension: no JVD Rate: regular rate Rhythm: regular rhythm Heart sounds: S1 normal heart sound present and S2 normal heart sound present GI Inspection: Yes normal to inspection Palpation (GI): Soft to palpation and nontender Auscultation: normal bowel sounds Skin General skin exam: no rashes or lesions noted Neuro General: no focal motor deficits Extrem General: Yes full ROM Psych Appearance: grossly normal Coding Level of Care Code Est Pt Prev Care 40-64y(56748) Diagnoses Physical exam Z00.00 Mild recurrent major depression F33.0 Additional Codes PHQ-9 - 84828 - PHQ-9 Billing: Yes ([id number]) MANDY-7 Assessment Billing - MANDY-7 Assessment Tool: MANDY-7 Assessment [id number] ([id number]) Time Spent (min) 31 Assessment & Plan Assessment & Plan (1) Physical exam: Code(s): Z00.00 - Encounter for general adult medical examination without abnormal findings Category: Medical (2) Mild recurrent major depression: Code(s): F33.0 - Major depressive disorder, recurrent, mild Category: Medical Plan Management of essential hypertension with Losartan will continue as per standard protocols. Ongoing psychiatric treatment includes Abilify and Sertraline; I advise follow-up psychiatric appointments to optimize mental health stability. Thyroid function, relevant to Synthroid administration, will be assessed through laboratory work. Pernicious anemia will be reviewed through Vitamin assessments, and discussions around diet outlined augmented plans for nutrition to facilitate weight control. Screening and preventive care affirmations, with sensitivity to allergy awareness, continue under highlighted perspectives. Patient was informed and verbally consented to the use of an ambient scribe for clinic note documentation during this visit. I discussed with the patient the ongoing management of her essential hypertension with Losartan and the therapeutic plan, which involves routine monitoring. We reviewed her mental health treatment with ongoing psychiatric medication and the benefit of continuing with telehealth psychiatrist consultations. The importance of thyroid function tests was highlighted for clarity around her Synthroid regimen, alongside Vitamin B12 monitoring for pernicious anemia. We reflected on weight management strategies to address her obesity, considering dietary modifications for reduced sugar intake, meal timing, and portion control. Follow-up screening schedules, such as regular colonoscopy and mammograms, as well as vaccination verification, were revisited for standard health maintenance, supplemented by allergy management to known triggers like morphine. Orders: Orders Complete Blood Count Auto Diff Today D64.9 - Anemia, unspecified Vitamin D 25-OH Total Today E55.9 - Vitamin D deficiency, unspecified Thyroid Stimulating Hormone Today E06.3 - Autoimmune thyroiditis IRON PROFILE Today D64.9 - Anemia, unspecified Vitamin B12 and Folate Today E53.8 - Deficiency of other specified B group vitamins Comprehensive [place]. Panel Fast Today Z00.00 - Encounter for general adult medical examination without abnormal findings Patient Instructions: - Continue taking Losartan as prescribed for blood pressure. - Maintain psychiatric follow-ups for depression and anxiety management. - Check Vitamin B12 and thyroid levels as recommended. - Monitor dietary intake, focusing on reduced sugar and portion control. - Adhere to regular colonoscopy and mammogram schedules. - Avoid morphine and consult regarding any medication changes. - Maintain exercise or physical activity within comfort levels. - Return for regular check-ups as scheduled.
[2024-08-30 08:15] VITALS: BP 122/86; BMI 36.1
--- OUTSIDE RECORDS SUMMARY | 2024-08-30 08:17 | XMS_ITS | Clinical Summary ---
Author Organization [facility] Address [address] [place] [address] Phone Care Team Providers Care Crester Name Role Phone Mily Gordon MD Primary Care Provider [phone] Allergies Active Allergy Reactions Criticality Noted Date [...] OR SHORTNESS OF BREATH 08/26/19 24 Active ferrous sulfate 325 mg (65 mg elemental iron) tablet TAKE ONE TABLET DAILY 02/18/20 23 Active busPIRone (BUSPAR) 15 mg tablet TAKE ONE TABLET THREE TIMES DAILY 09/25/19 23 Active sertraline (ZOLOFT) 100 mg tablet TAKE TWO TABLETS EVERY MORNING 10/27/20 22 Active naproxen (NAPROSYN) 500 mg tablet Take [...] daily. 03/06/20 Active medical supply, miscellaneous (PILL LUMBER STACKER AND CONTAINER MISC) MISC. DEVICES (PILL LUMBER STACKER) MISC 1 Device by Does not apply route Once. 02/15/20 Active incontinence pad, liner, disp pad INCONTINENCE SUPPLY DISPOSABLE ([facility] INCONTINENCE PADS) MISC 1 Each by [...] total) by mouth. 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 ([facility] V24, [facility] V28) 07/06/2017 Depression 06/12/2016 Allergic rhinitis 03/05/2016 Thyroid nodule 01/02/2016 Carpal tunnel syndrome 06/26/2015 Overview (02/09/2024): Comments: NCS 04/2015 Insomnia 10/27/2014 Immunizations Name Administration Dates Next Due Influenza Quadravalent, MDCK , 0.5ml, preservative free (Flucelvax) 6mo and older 02/10/2020 Tdap Tetanus diptheria acell ular pertussis (Boostrix; Adacel) 7yo and older 01/02/2016 Surgical History Surgery Date Site/Laterality Comments SECTION PROCEDURE: [place] DELIVERY ONLY; COMMENT: x3 CHOLECYSTECTOMY PROCEDURE: HISTORICAL [...] recommendations were conveyed to the patient via marketing technologist. ?? BREAST DENSITY: B - There are scattered areas of fibroglandular density. ?? BI-RADS CATEGORY: 1 - NEGATIVE RECOMMENDATION: Mammography: Screening bilateral mammogram is recommended in 1 year. Mammo Location: [facility], [address] [place] [address], [address], . -------- FINAL REPORT -------- Dictated By: Gary Dao Dictated Date: 04/21/2024 09:45 ET Assigned Physician: Gary Dao Reviewed and Electronically Signed By: Gary Dao Signed Date: 04/21/2024 09:50 ET Workstation ID: [id number] Transcribed By: Self Edit Transcribed Date: 04/21/2024 [...] is recommended in 1 year. Mammo Location: [facility], [address] [place] [address], [address], . -------- FINAL REPORT -------- Dictated By: Gary Dao Dictated Date: 04/21/2024 09:45 ET Assigned Physician: Gary Dao Reviewed and Electronically Signed By: Gary Dao Signed Date: 04/21/2024 09:50 ET Workstation ID: [id number] Transcribed By: Self Edit Transcribed Date: 04/21/2024 09:45 ET us Mily Gordon MD IMG BI PROCEDURES Final Result * COLONOSCOPY Anesthesia - MAC; [facility] ENDOSCOPY (03/16/2024 12:25 PM EST) Anatomical Region Laterality Modality Endoscopy 03/16/2024 12:1 0 PM EST Narrative 03/16/2024 12:25 PM EST [facility] GI Patient Name: Alina Moody Procedure Date: 03/16/2024 12:10 PM ? Date of : 1975 ?Age: 48 Room: ROOM 16 ? Gender: Female Note Status: Finalized ?Attending MD: Chloe Hinson DO, [id number] Procedure Date No Time: 03/16/2024 ? Procedure: [...] physician, the nurse, the ? anesthesiologist, the account officer and the senior health physics technician ? in the pre-procedure area in [...] malignant neoplasm ? of colon CPT copyright 2021 [employer]. All rights reserved. The codes documented in this report are preliminary and upon napper fixer review may be revised to meet current compliance requirements. CHLOE HINSON Chloe Hinson DO 03/16/2024 12:25:36 PM This report has been signed electronically.Chloe Hinson DO Number of Addenda: 0 Note Initiated On: 03/16/2024 12:10 PM Scope Withdrawal Time: 0 hours 6 minutes 6 seconds Scope In: 12:13:45 PM Scope Out: 12:23:32 PM ? Endoscopy Department at [facility] - [address] [place] [address], ? [place] [id number] Procedure Note Chloe Hinson DO - 03/16/2024 [facility] GI Patient Name: Alina Moody Procedure Date: 03/16/2024 12:10 PM Date of : 1975 Age: 48 Room: ROOM 16 Gender: Female Note Status: Finalized Attending MD: Chloe Hinson DO,[id number] Procedure Date No Time: 03/16/2024 Procedure: Colonoscopy [...] the physician, the nurse, the anesthesiologist, the account officer and thetechnician in the pre-procedure area in [...] for malignantneoplasm of colon CPT copyright 2020 [employer]. All rights reserved. The codes documented in this report are preliminary and upon napper fixer reviewmay be revised to meet current compliance requirements. CHLOE HINSON Chloe Hinson DO 03/16/2024 12:25:36 PM This report has been signed electronically.Chloe Hinson DO Number of Addenda: 0 Note Initiated On: 03/16/2024 12:10 PM Scope Withdrawal Time: 0 hours 6 minutes 6 seconds Scope In: 12:13:45 PM Scope Out: 12:23:32 PM Endoscopy Department at [address] [address] Result [facility] Chloe Hinson DO GI~PROCEDURE ORDERABLES Final Re sult * Cervical Cancer Screening: HPV (01/13/2023) Cervical Cancer Screening: HPV abstracted, negative Result [facility] Historical Provider HEALTH MAINTENANCE Final Result * Hemoglobin A1c (06/17/2021) Hemoglobin A1C 6.1 <=6.5 % Blood Venous blood specimen / Unknown Result [facility] Historical Provider LAB BLOOD ORDERABLES Cecilia l Result * Lipid panel (03/15/2020) LDL/HDL Ratio 3 0 - 4 Triglycerides 92 0 - 150 mg/dL Cholesterol 154 0 - 200 mg/dL HDL 47 >=40 mg/dL LDL Cholesterol 89 0 - 100 mg/dL Blood Venous blood specimen / Unknown Result [facility] Provider LAB BLOOD ORDERABLES Cecilia l Result * Urine Albumin Creatinine Ratio (07/21/2018) Urine Albumin Creatinine Ratio abstracted Result [facility] Historical Provider HEALTH MAINTENANCE Final Result from Last 3 Months or Most Recently Relevant to Health Maintenance Insurance [facility] MEDICARE Member Subscriber Plan / Payer (Ef fective 2021-Present) Name:Alina Chapman Relation to Subscriber:Self Name:Alina Chapman Payer ID:[id number] Group ID:[id number] Type:Not on file Address: [address] [place] [address] MEDICA[place] - [place] Care Teams Crester Relationship Specialty Start Date End Date Mily Gordon MD 2 [facility] , [facility] Physician Associ D/B/A: [facility] [place], [place] PCP - General 02/09/24
== END 2024-08-30 08:41 | disposition home or self-care (01) ==
LOC: HO.HMCH 08:05
PROVIDERS: PCP Internal Medicine; Visit Provider Internal Medicine
DX: Z00.00 Encounter for general adult medical examination without abnormal findings (principal); F33.0 Major depressive disorder, recurrent, mild

== ENCOUNTER → 2024-08-30 08:04 | Outpatient (BNVA) | payer OTHER, SELFPAY | PROVIDERS: PCP Internal Medicine; Visit Provider Internal Medicine | DX: Z00.00 Encounter for general adult medical examination without abnormal findings (principal); I10 Essential (primary) hypertension; F33.0 Major depressive disorder, recurrent, mild; Z79.899 Other long term (current) drug therapy | CPT/HCPCS: 96127; 99396 ==

== ENCOUNTER 2024-10-10 07:40 | Outpatient (REF) | payer OTHER, SELFPAY ==
--- OUTSIDE RECORDS SUMMARY | 2024-10-10 07:42 | XMS_ITS | Encounter Summary ---
Author Organization [facility] Address [address] [place] [address] Care Team Providers Care Historical Guide Name Role Phone Jewell Jennings MD Primary Care Provider [phone] Community, Pcp Primary Care Provider Jewell Castro MD Primary Care Provider [phone] Mily Gordon MD Primary Care Provider Isaura hudson Reason for Visit * Reason Onset Date Comments medication problems 03/23/2019 Encounter Details Date Type Department Care Team Description 03/23/2019 Telephone Internal Medicine - [address], [address] [place] [address] Jewell Jennings MD [address] [place] [phone] medication problems Social History Tobacco Use Types Packs/Day Years Used Date Smoking Tobacco: Never Smokeless Tobacco: Never Alcohol Use Standard Drinks/Week Comments No 0 (1 standard drink = 0.6 oz pur e alcohol) Sex Assigned at Date Recorded Not on file Job Start Date Occupation Industry Not on file Not on file Not on file documented as of this encounter Miscellaneous Notes * Telephone Encounter - Akira Fernandez M.A. - 03/24/2019 3:33 PM EST LEFT MESSAGE TO CALL OFFICE PLEASE ASK PATIENT WHAT DOSE SHE TAKE FOR MEDICATION SYNTHROID NEW BRAND THANK YOU * Telephone Encounter - Jewell Jennings MD - 03/24/2019 5:48 AM EST What dose she is on??? 175 or 200??? * Telephone Encounter - Akira Fernandez M.A. - 03/23/2019 1:03 PM EST Please send brand name medication to pharm * Telephone Encounter - Carol Ortiz - 03/23/2019 12:08 PM EST SynthroidWhat is the name of the medication patient is having a problem with?: Synthroid What is the problem?: Patient cannot take generic Brand name ONLY Is the patient calling about the problem? YES If the patient is not the caller who is? Is this a NEW medication?: NO How long has the patient been taking this medication? Long time Who prescribed this medication for the patient? Dr Oneal Who is patients PCP?: Dr Jennings Payor: [employer] FFS / Plan: [employer]IANCE / Product Type: MEDICAID RISK documented in this encounter Plan of Treatment Not on file documented as of this encounter Visit Diagnoses Not on filedocumented in this encounter Care Teams Historical Guide Relationship Specialty Start Date End Date Jewell Jennings MD PCP - General Internal Medicine 09/28/18 08/12/22 [facility], Pcp PCP - General Internal Medicine 08/21/22 01/12/23 Jewell Jennings MD PCP - General Internal Medicine 01/13/23 02/08/24 Mily Gordon MD PCP - General Internal Medicine 02/09/24 documented as of this encounter
[2024-10-10 07:52] LABS: MANUAL DIFF FLAG NO
[2024-10-10 08:14] LABS: Basophils Absolute Auto 0.1 X10*3/uL (0.0-0.2); Basophils Percent Auto 1.3 % (0-2); Eosinophils Absolute Auto 0.3 X10*3/uL (0.0-0.4); Eosinophils Percent Auto 3.9 % (0-4); Hematocrit 42.4 % (37.0-47.0); Hemoglobin 13.5 g/dl (12.0-16.0); Imm Gran Abs Auto 0.01 X10*3/uL (0.00-0.03); Imm Gran Pct Auto 0.2 % (0.0-0.4); Lymphocytes Absolute Auto 1.9 X10*3/uL (1.2-4.9); Lymphocytes Percent Auto 29.4 % (20-40); Mean Corpuscular HGB Conc 31.8 g/dl (31.0-35.0); Mean Corpuscular Hemoglobin 26.4 pg (27.0-33.0); Mean Corpuscular Volume 82.8 fL (80.0-98.0); Mean Platelet Volume 11.2 fL (9.4-12.3); Monocytes Absolute Auto 0.4 X10*3/uL (0.1-1.2); Monocytes Percent Auto 6.9 % (2-11); Neutrophils Absolute Auto 3.7 x10*3/uL (2.0-8.3); Neutrophils Percent Auto 58.3 % (45-73); Platelet Count 282 X10*3/uL (160-400); Red Blood Count 5.12 X10*6/uL (4.20-5.50); Red Cell Distribution Width 14.4 % (11.0-16.0); White Blood Count 6.4 X10*3/uL (4.8-10.8)
[2024-10-10 08:46] LABS: Alanine Aminotransferase 26 U/L (0-31); Albumin Level 4.6 g/dL (3.5-5.0); Alkaline Phosphatase 73 U/L (39-117); Anion Gap 12 (12-20); Aspartate Amino Transferase 25 U/L (5-31); Bilirubin Total 0.3 mg/dL (0.0-1.0); Blood Urea Nitrogen 17 mg/dL (9-16); Calcium 9.8 mg/dL (8.4-10.2); Carbon Dioxide 26 mmol/L (22-29); Chloride 107 mmol/L (96-108); Estimated Glomerular Filt Rate > 60; Glucose Fasting 104 mg/dL (60-99); Iron 51 mcg/dL (30-160); Percent Iron Saturation 16 % (15-50); Potassium 4.3 mmol/L (3.3-5.1); Sodium 141 mmol/L (135-145); Total Iron Binding Capacity 315 mcg/dL (228-428); Total Protein 7.7 g/dL (6.5-8.0); Unsaturated Iron Binding 264 ug/dL
[2024-10-10 09:03] LABS: Thyroid Stimulating Hormone 1.54 uIU/mL (0.32-4.0); Vitamin D 25-OH Total 31.9 ng/mL (>30)
[2024-10-10 09:15] LABS: Folate 6.6 ng/mL (> or = 4.0); Vitamin B12 190 pg/mL (200-900)
== END 2024-10-10 07:41 | disposition home or self-care (01) ==
LOC: HO.LAB 07:40
PROVIDERS: PCP Internal Medicine; Visit Provider Internal Medicine
DX: Z00.00 Encounter for general adult medical examination without abnormal findings (principal); E55.9 Vitamin D deficiency, unspecified; E06.3 Autoimmune thyroiditis; E53.8 Deficiency of other specified B group vitamins; D64.9 Anemia, unspecified
CPT/HCPCS: 36415; 80053; 82306; 82607; 82746; 83540; 84443; 85025

== ENCOUNTER 2024-10-12 09:38 | Outpatient (AMB) | payer OTHER, SELFPAY ==
--- NOTE | 2024-10-12 09:52 | AM.OFFVISNUR ---
Intake Visit Reasons: B12 injection Allergies morphine Adverse Reaction (Severe, Verified 08/30/24 08:26) Rash levothyroxine Adverse Reaction (Intermediate, Verified 08/30/24 08:26) Headache Office Meds cyanocobalamin (vitamin B-12) 1,000 mcg/mL injection solution Performing Provider: Mily Gordon MD [place] [place] Administered by: Roxanne Yan LPN on 10/12/24 09:52 Dose Route Admin Location Dispensed Lot Number Expiration Date [facility] Physical Chemistry Professor 1,000 mcg IM right deltoid 1 mL [id number] 04/09/26 21454-856-86 DARIANA PAYNE Assessment & Plan Assessment & Plan Orders: Orders AMB Vitamin B12 Injection Patient Supplied Today E53.8 - Deficiency of other specified B group vitamins Medications: New cyanocobalamin (vitamin B-12) 1,000 mcg IM ONCE 1 mL 0RF E53.8 - Deficiency of other specified B group vitamins Coding
--- OUTSIDE RECORDS SUMMARY | 2024-10-12 10:07 | XMS_ITS | Clinical Summary ---
Author Organization [facility] Address [address] [place] [address] Phone Care Team Providers Care Senior Warehouse Clerk Name Role Phone Mily Gordon MD Primary Care Provider [phone] Allergies Active Allergy Reactions Criticality Noted Date [...] daily. 03/06/20 Active medical supply, miscellaneous (PILL SENIOR C WEB DEVELOPER AND CONTAINER MISC) MISC. DEVICES (PILL SENIOR C WEB DEVELOPER) MISC 1 Device by Does not apply route Once. 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 ([facility] V24, [facility] V28) 07/06/2017 Depression 06/12/2016 Allergic rhinitis 03/05/2016 Thyroid nodule 01/02/2016 Carpal tunnel syndrome 06/26/2015 Overview (02/09/2024): Comments: NCS 04/2015 Insomnia 10/27/2014 Immunizations Name Administration Dates Next Due Influenza Quadravalent, MDCK , 0.5ml, preservative free (Flucelvax) 6mo and older 02/10/2020 Tdap Tetanus diptheria acell ular pertussis (Boostrix; Adacel) 7yo and older 01/02/2016 Surgical History Surgery Date Site/Laterality Comments SECTION PROCEDURE: [place] DELIVERY ONLY; COMMENT: x3 CHOLECYSTECTOMY PROCEDURE: HISTORICAL [...] recommendations were conveyed to the patient via cytology technologist. ?? BREAST DENSITY: B - There are scattered areas of fibroglandular density. ?? BI-RADS CATEGORY: 1 - NEGATIVE RECOMMENDATION: Mammography: Screening bilateral mammogram is recommended in 1 year. Mammo Location: [facility], [address] [place] [address], [address], . -------- FINAL REPORT -------- Dictated By: Gary Dao Dictated Date: 04/21/2024 09:45 ET Assigned Physician: Gary Dao Reviewed and Electronically Signed By: Gary Dao Signed Date: 04/21/2024 09:50 ET Workstation ID: [id number] Transcribed By: Self Edit Transcribed Date: 04/21/2024 [...] is recommended in 1 year. Mammo Location: [facility], [address] [place] [address], [address], . -------- FINAL REPORT -------- Dictated By: Gary Dao Dictated Date: 04/21/2024 09:45 ET Assigned Physician: Gary Dao Reviewed and Electronically Signed By: Gary Dao Signed Date: 04/21/2024 09:50 ET Workstation ID: [id number] Transcribed By: Self Edit Transcribed Date: 04/21/2024 09:45 ET us Mily Gordon MD IMG BI PROCEDURES Final Result * COLONOSCOPY Anesthesia - MAC; [facility] ENDOSCOPY (03/16/2024 12:25 PM EST) Anatomical Region Laterality Modality Endoscopy 03/16/2024 12:1 0 PM EST Narrative 03/16/2024 12:[address] [facility] GI Patient Name: Alina Moody Procedure Date: 03/16/2024 12:10 PM ? Date of : 1975 ?Age: 48 Room: ROOM 16 ? Gender: Female Note Status: Finalized ?Attending MD: Chloe Hinson DO, [id number] Procedure Date No Time: 03/16/2024 ? Procedure: [...] physician, the nurse, the ? anesthesiologist, the commis chef and the mechanical technician ? in the pre-procedure area in [...] neoplasm ? of colon CPT copyright 2021 [employer]. All rights reserved. The codes documented in this report are preliminary and upon road train driver review may be revised to meet current compliance requirements. CHLOE HINSON Chloe Hinson DO 03/16/2024 12:25:36 PM This report has been signed electronically.Chloe Hinson DO Number of Addenda: 0 Note Initiated On: 03/16/2024 12:10 PM Scope Withdrawal Time: 0 hours 6 minutes 6 seconds Scope In: 12:13:45 PM Scope Out: 12:23:32 PM ? Endoscopy Department at [facility] - [address] [place] [address], ? [place] [id number] Procedure Note Chloe Hinson DO - 03/16/2024 [facility] GI Patient Name: Alina Moody Procedure Date: 03/16/2024 12:10 PM Date of : 1975 Age: 48 Room: ROOM 16 Gender: Female Note Status: Finalized Attending MD: Chloe Hinson DO,[id number] Procedure Date No Time: 03/16/2024 Procedure: Colonoscopy [...] the physician, the nurse, the anesthesiologist, the commis chef and thetechnician in the pre-procedure area in [...] for malignantneoplasm of colon CPT copyright 2020 [employer]. All rights reserved. The codes documented in this report are preliminary and upon road train driver reviewmay be revised to meet current compliance requirements. CHLOE HINSON Chloe Hinson DO 03/16/2024 12:25:36 PM This report has been signed electronically.Chloe Hinson DO Number of Addenda: 0 Note Initiated On: 03/16/2024 12:10 PM Scope Withdrawal Time: 0 hours 6 minutes 6 seconds Scope In: 12:13:45 PM Scope Out: 12:23:32 PM Endoscopy Department at [address] [address] Result [facility] Chloe Hinson DO GI~PROCEDURE ORDERABLES Final Re sult * Cervical Cancer Screening: HPV (01/13/2023) Cervical Cancer Screening: HPV abstracted, negative Result [facility] Historical Provider HEALTH MAINTENANCE Final Result * Hemoglobin A1c (06/17/2021) Hemoglobin A1C 6.1 <=6.5 % Blood Venous blood specimen / Unknown Result [facility] Historical Provider LAB BLOOD ORDERABLES Cecilia l Result * Lipid panel (03/15/2020) LDL/HDL Ratio 3 0 - 4 Triglycerides 92 0 - 150 mg/dL Cholesterol 154 0 - 200 mg/dL HDL 47 >=40 mg/dL LDL Cholesterol 89 0 - 100 mg/dL Blood Venous blood specimen / Unknown Result [facility] Provider LAB BLOOD ORDERABLES Cecilia l Result * Urine Albumin Creatinine Ratio (07/21/2018) Urine Albumin Creatinine Ratio abstracted Result [facility] Historical Provider HEALTH MAINTENANCE Final Result from Last 3 Months or Most Recently Relevant to Health Maintenance Insurance [facility] MEDICARE Member Subscriber Plan / Payer (Ef fective 2021-Present) Name:Alina Chapman Relation to Subscriber:Self Name:Ailna Chapman Payer ID:[id number] Group ID:[id number] Type:Not on file Address: [address] [place] [phone] MEDICAID - [place] Care Teams Senior Warehouse Clerk Relationship Specialty Start Date End Date Mily Gordon MD 2 [facility] , [facility] [address] [facility] Physician Associ D/B/A: [facility] [place], [place] PCP - General 02/09/24
== END 2024-10-12 09:53 | disposition home or self-care (01) ==
LOC: HO.HMCH 09:39
PROVIDERS: PCP Internal Medicine; Visit Provider Internal Medicine
DX: E53.8 Deficiency of other specified B group vitamins (principal)

== ENCOUNTER → 2024-10-12 09:38 | Outpatient (BNVA) | payer OTHER, SELFPAY | PROVIDERS: PCP Internal Medicine; Visit Provider Internal Medicine | DX: E53.8 Deficiency of other specified B group vitamins (principal) | CPT/HCPCS: 96372; J3420 ==

== ENCOUNTER 2024-11-15 08:28 | Outpatient (AMB) | payer OTHER, SELFPAY ==
--- OUTSIDE RECORDS SUMMARY | 2024-11-15 08:36 | XMS_ITS | Encounter Summary ---
Author Organization [facility] Address [address] [place] [address] Care Team Providers Care Engraved Roller Inspector Name Role Phone Jewell Jennings MD Primary Care Provider [phone] Community, Pcp Primary Care Provider Jewell Castro MD Primary Care Provider [phone] Mily Gordon MD Primary Care Provider Isaura hudson Reason for Visit * Reason Onset Date Comments medication problems 03/23/2019 Encounter Details Date Type Department Care Team Description 03/23/2019 Telephone Internal Medicine - [address], [address] [place] [address] Jewell Jennings MD [address] [place] [phone] medication problems Social History Tobacco Use [...] Who is patients PCP?: Dr Jennings Payor: [employer] FFS / Plan: [employer] / Product Type: MEDICAID RISK documented in this encounter Plan of Treatment Not on file documented as of this encounter Visit Diagnoses Not on filedocumented in this encounter Care Teams Engraved Roller Inspector Relationship Specialty Start Date End Date Jewell Jennings MD PCP - General Internal Medicine 09/28/18 08/12/22 [facility], Pcp PCP - General Internal Medicine 08/21/22 01/12/23 Jewell Jennings MD PCP - General Internal Medicine 01/13/23 02/08/24 Mily Gordon MD PCP - General Internal Medicine 02/09/24 documented as of this encounter
--- OUTSIDE RECORDS SUMMARY | 2024-11-15 08:36 | XMS_ITS | Clinical Summary ---
Author Organization [facility] Address [address] [place] [address] Phone Care Team Providers Care Wastewater Manager Name Role Phone Mily Gordon MD Primary Care Provider [phone] Allergies Active Allergy Reactions Criticality Noted Date [...] daily. 03/06/20 Active medical supply, miscellaneous (PILL MANNEQUIN MOUNTER AND CONTAINER MISC) MISC. DEVICES (PILL MANNEQUIN MOUNTER) MISC 1 Device by Does not apply route Once. 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 ([facility] V24, [facility] V28) 07/06/2017 Depression 06/12/2016 Allergic rhinitis 03/05/2016 Thyroid nodule 01/02/2016 Carpal tunnel syndrome 06/26/2015 Overview (02/09/2024): Comments: NCS 04/2015 Insomnia 10/27/2014 Immunizations Name Administration Dates Next Due Influenza Quadravalent, MDCK , 0.5ml, preservative free (Flucelvax) 6mo and older 02/10/2020 Tdap Tetanus diptheria acell ular pertussis (Boostrix; Adacel) 7yo and older 01/02/2016 Surgical History Surgery Date Site/Laterality Comments SECTION PROCEDURE: [place] DELIVERY ONLY; COMMENT: x3 CHOLECYSTECTOMY PROCEDURE: HISTORICAL [...] 65 03/16/2024 12:46 PM EST Temperature 36.1 C (97 F) 03/16/2024 12:26 PM EST Respiratory Rate 16 [...] Years (1 of 2 - PCV) 1992 Depression Screening 04/19/2022 HIV Screening 04/19/2022 Hepatitis C Screening 04/19/2022 Medicare Annual Wellness Visit 04/19/2022 Social Influencers of Health Screening 04/19/2022 Diabetes: Annual Urine Albumin-Creatinine Ratio (uACR) 04/20/2022 07/21/2018 Diabetes: Blood Sugar Control Test (HGBA1C) 04/20/2022 06/17/2021 Zoster Vaccines (1 of 2) 2023 COVID-19 Vaccine ( season) 2024 05/06/2021, 10/01/2020, 09/01/2020 Influenza Vaccine (#1) 2025 , 02/24/2023, 04/16/2022, Additional history exists Cholesterol Screening (Lipid Panel) 03/15/2025 03/15/2020 DTaP,Tdap,and Td Vaccines (2 - Td or Tdap) 01/01/2026 01/02/2016 Breast Cancer Screening 04/21/2026 04/21/20, 03/25/2024, 03/19/2023, Additional history exists Cervical Cancer Screening: HPV 01/14/2028 01/13/2023 Colorectal Cancer Screening: Colonoscopy 03/16/2034 03/16/2024 HIB Vaccines Aged Out No longer eligi [...] recommendations were conveyed to the patient via electroneurodiagnostic technologist. BREAST DENSITY: B - There are scattered areas of fibroglandular density. BI-RADS CATEGORY: 1 - NEGATIVE RECOMMENDATION: Mammography: Screening bilateral mammogram is recommended in 1 year. Mammo Location: [facility], [address] [place] [address], [id number], . -------- FINAL REPORT -------- Dictated By: Gary Dao Dictated Date: 04/21/2024 09:45 ET Assigned Physician: Kataoka, Milliam Reviewed and Electronically Signed By: Gary Dao Signed Date: 04/21/2024 09:50 ET Workstation ID: [id number] Transcribed By: Self Edit Transcribed Date: 04/21/2024 09:45 ET Narrative 04/21/2024 9:50 AM EST HISTORY: Callback from screening for left breast retroareolar focal asymmetry. STUDY: Unilateral left diagnostic mammography with tomosynthesis and CAD TECHNIQUE: Unilateral left digital diagnostic mammography is obtained and read in conjunction with computer-aided detection. Tomosynthesis as well as 2-D C view imaging were obtained. Spot compression Tomosynthesis images were also obtained COMPARISON: Comparison made to multiple prior, most recent March 25, 2024, and most remote January 29, 2016. LEFT BREAST: Previously suggested focal asymmetry does not persist on today's images obtained with nipple in profile. No significant masses are seen. The appearance of the nipple/subareolar region is [...] is recommended in 1 year. Mammo Location: [facility], [address] [place] [address], [id number], . -------- FINAL REPORT -------- Dictated By: Gary Dao Dictated Date: 04/21/2024 09:45 ET Assigned Physician: Gary Dao Reviewed and Electronically Signed By: Gary Dao Signed Date: 04/21/2024 09:50 ET Workstation ID: [id number] Transcribed By: Self Edit Transcribed Date: 04/21/2024 09:45 ET Mily Gordon MD IM BI PROCEDURES Final Result * COLONOSCOPY Anesthesia - MAC; [facility] ENDOSCOPY (03/16/2024 12:25 PM EST) Anatomical Region Laterality Modality Endoscopy 03/16/2024 12:1 0 PM EST Narrative 03/16/2024 12:25 PM EST [facility] GI Patient Name: Alina Moody Procedure Date: 03/16/2024 12:10 PM Date of : 1975 Age: 48 Room: ROOM 16 Gender: Female Note Status: Finalized Attending MD: Chloe Hinson DO, [id number] Procedure Date No Time: 03/16/2024 Procedure: Colonoscopy Indications: Screening for colorectal malignant neoplasm Providers: Chloe Hinson DO Referring MD: Lyn Gordon PA-C Medicines: Monitored Anesthesia Care Complications: No immediate complications. Estimated blood loss: None. Estimated Blood Loss: Estimated blood loss: none. Procedure: Pre-Anesthesia Assessment: - - Prior to the procedure, a History and Physical was performed, and patient medications and allergies were reviewed. The patient is competent. The risks and benefits of the procedure and the sedation options and risks were discussed with the patient. All questions were answered and informed consent was obtained. Patient identification and proposed procedure were verified by the physician, the nurse, the anesthesiologist, the furnace roaster and the predictive maintenance technician in the pre-procedure area in the endoscopy suite. Mental Status Examination: alert and oriented. Airway Examination: normal oropharyngeal airway and neck mobility. Respiratory Examination: clear to auscultation. CV Examination: normal. Prophylactic Antibiotics: The patient does not require prophylactic antibiotics. Prior Anticoagulants: The patient has taken no anticoagulant or antiplatelet agents. ASA Grade Assessment: II - A patient with severe systemic disease. After reviewing the risks and benefits, the patient was deemed in satisfactory condition to undergo the procedure. The anesthesia plan was to use monitored anesthesia care (MAC). Immediately prior to administration of medications, the patient was re-assessed for adequacy to receive sedatives. The heart rate, respiratory rate, oxygen saturations, blood pressure, adequacy of pulmonary ventilation, and response to care were monitored throughout the procedure. The physical status of the patient was re-assessed after the procedure. After I obtained informed consent, the scope was passed under direct vision. Throughout the procedure, the patient's blood pressure, pulse, and oxygen [...] normal. The exam was otherwise without abnormality on direct and retroflexion views. Impression: - The examination was otherwise normal on direct and retroflexion views. - No specimens collected. Recommendation: [...] Professional --- Z12.11, Encounter for screening for malignant neoplasm of colon CPT copyright 2020 [employer]. All rights reserved. The codes documented in this report are preliminary and upon news clerk review may be revised to meet current compliance requirements. CHLOE HINSON Chloe Hinson DO 03/16/2024 12:25:36 PM This report has been signed electronically.Chloe Hinson DO Number of Addenda: 0 Note Initiated On: 03/16/2024 12:10 PM Scope Withdrawal Time: 0 hours 6 minutes 6 seconds Scope In: 12:13:45 PM Scope Out: 12:23:32 PM Endoscopy Department at [address] [address] Procedure Note Chloe Hinson DO - 03/16/2024 [facility] GI Patient Name: Alina Moody Procedure Date: 03/16/2024 12:10 PM Date of : 1975 Age: 48 Room: ROOM 16 Gender: Female Note Status: Finalized Attending MD: Chloe Hinson DO,[id number] Procedure Date No Time: 03/16/2024 Procedure: Colonoscopy Indications: Screening for colorectal malignant neoplasm Providers: Chloe Hinson DO Referring MD: Lyn IVON Heidi, PA-C Medicines: Monitored Anesthesia Care Complications: No [...] the physician, the nurse, the anesthesiologist, the furnace roaster and thetechnician in the pre-procedure area in [...] for malignantneoplasm of colon CPT copyright 2020 [employer]. All rights reserved. The codes documented in this report are preliminary and upon news clerk reviewmay be revised to meet current compliance requirements. CHLOE HINSON Chloe Hinson DO 03/16/2024 12:25:36 PM This report has been signed electronically.Chloe Hinson DO Number of Addenda: 0 Note Initiated On: 03/16/2024 12:10 PM Scope Withdrawal Time: 0 hours 6 minutes 6 seconds Scope In: 12:13:45 PM Scope Out: 12:23:32 PM Endoscopy Department at [address] [address] Result [facility] Chloe Hinson DO GI~PROCEDURE ORDERABLES Final Re sult * Cervical Cancer Screening: HPV (01/13/2023) Pathologist [facility] Cervical Cancer Screening: HPV abstracted, negative Result [facility] Provider HEALTH MAINTENANCE Final Result * Hemoglobin A1c (06/17/2021) [facility] Hemoglobin A1C 6.1 <=6.5 % Blood Venous blood specimen / Unknown Result [facility] Provider LAB BLOOD ORDERABLES Cecilia l Result * Lipid panel (03/15/2020) [facility] LDL/HDL Ratio 3 0 - 4 Triglycerides 92 0 - 150 mg/dL Cholesterol 154 0 - 200 mg/dL HDL 47 >=40 mg/dL LDL Cholesterol 89 0 - 100 mg/dL Blood Venous blood specimen / Unknown Result [facility] Provider LAB BLOOD ORDERABLES Cecilia l Result * Urine Albumin Creatinine Ratio (07/21/2018) Pathologist [facility] Urine Albumin Creatinine Ratio abstracted Result [facility] Historical Provider HEALTH MAINTENANCE Final Result from Last 3 Months or Most Recently Relevant to Health Maintenance Insurance [facility] MEDIC[facility] Member Subscriber Plan / Payer (Ef fective 2021-Present) Name:Alina Chapman Relation to Subscriber:Self Name:Alina Chapman Payer ID:[id number] Group ID:[id number] Type:Not on file Address: [address] [place] [address] MEDICAID - [place] Care Teams Wastewater Manager Relationship Specialty Start Date End Date Mily Gordon MD [address] [place] [address] , [address] [facility] Physician Associ D/B/A: [facility] CHAPO Bell PCP - General 02/09/24
--- NOTE | 2024-11-15 09:02 | AM.OFFVISNUR ---
Intake Visit Reasons: Injection Allergies morphine Adverse Reaction (Severe, Verified 08/30/24 08:26) Rash levothyroxine Adverse Reaction (Intermediate, Verified 08/30/24 08:26) Headache Office Meds cyanocobalamin (vitamin B-12) 1,000 mcg/mL injection solution Performing Provider: Mily Gordon MD [facility] Administered by: Roxanne Yan LPN on 11/15/24 09:02 Dose Route Admin Location Dispensed Lot Number Expiration Date [facility] Rn Imaging 1,000 mcg IM right deltoid 1 mL [id number] 02/07/27 38663-899-72 VITRUVIAS THERA Total Dispensed Waste 1 mL 0 % Assessment & Plan Assessment & Plan Orders: Orders AMB Vitamin B12 Injection Patient Supplied Today E53.8 - Deficiency of other specified B group vitamins Coding
== END 2024-11-15 09:00 | disposition home or self-care (01) ==
LOC: HO.HMCH 08:29
PROVIDERS: PCP Internal Medicine; Visit Provider Internal Medicine
DX: E53.8 Deficiency of other specified B group vitamins (principal)

== ENCOUNTER → 2024-11-15 08:28 | Outpatient (BNVA) | payer OTHER, SELFPAY | PROVIDERS: PCP Internal Medicine; Visit Provider Internal Medicine | DX: E53.8 Deficiency of other specified B group vitamins (principal) | CPT/HCPCS: 96372; J3420 ==

== ENCOUNTER 2024-12-12 09:14 | Outpatient (REF) | payer OTHER, SELFPAY ==
--- OUTSIDE RECORDS SUMMARY | 2024-12-12 09:38 | XMS_ITS | Clinical Summary ---
Author Organization [facility] Address [address] [place] [address] Phone Care Team Providers Care Sales Representative Leather Goods Name Role Phone Mily Gordon MD Primary Care Provider [phone] Allergies Active Allergy Reactions Criticality Noted Date [...] daily. 03/06/20 Active medical supply, miscellaneous (PILL CONTAINER REPAIRER AND CONTAINER MISC) MISC. DEVICES (PILL CONTAINER REPAIRER) MISC 1 Device by Does not apply route Once. 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 ([facility] V24, [facility] V28) 07/06/2017 Depression 06/12/2016 Allergic rhinitis 03/05/2016 Thyroid nodule 01/02/2016 Carpal tunnel syndrome 06/26/2015 Overview (02/09/2024): Comments: NCS 04/2015 Insomnia 10/27/2014 Immunizations Name Administration Dates Next Due Influenza Quadravalent, MDCK , 0.5ml, preservative free (Flucelvax) 6mo and older 02/10/2020 Tdap Tetanus diptheria acell ular pertussis (Boostrix; Adacel) 7yo and older 01/02/2016 Surgical History Surgery Date Site/Laterality Comments SECTION PROCEDURE: [place] DELIVERY ONLY; COMMENT: x3 CHOLECYSTECTOMY PROCEDURE: HISTORICAL [...] Years (1 of 2 - PCV) 1992 HIV Screening 04/19/2022 Hepatitis C Screening 04/19/2022 Medicare Annual Wellness Visit 04/19/2022 Social Influencers of Health Screening 04/19/2022 Diabetes: Annual Urine Albumin-Creatinine Ratio (uACR) 04/20/2022 07/21/2018 Diabetes: Blood Sugar Control Test (HGBA1C) 04/20/2022 06/17/2021 Zoster Vaccines (1 of 2) 2023 COVID-19 Vaccine ( - season) 2024 05/06/2021, 10/01/2020, 09/01/2020 Depression Screening 05/11/2024 Influenza Vaccine (#1) 2025 , 02/24/2023, 04/16/2022, [...] recommendations were conveyed to the patient via certified ophthalmic technologist. BREAST DENSITY: B - There are scattered areas of fibroglandular density. BI-RADS CATEGORY: 1 - NEGATIVE RECOMMENDATION: Mammography: Screening bilateral mammogram is recommended in 1 year. Mammo Location: [facility], [address] [place] [address], [id number], . -------- FINAL REPORT -------- Dictated By: Gary Dao Dictated Date: 04/21/2024 09:45 ET Assigned Physician: Kataoka, Milliam Reviewed and Electronically Signed By: Gary Dao Signed Date: 04/21/2024 09:50 ET Workstation ID: [id number] Transcribed By: Self Edit Transcribed Date: 04/21/2024 [...] is recommended in 1 year. Mammo Location: [facility], [address] [place] [address], [id number], . -------- FINAL REPORT -------- Dictated By: Gary Dao Dictated Date: 04/21/2024 09:45 ET Assigned Physician: Gary Dao Reviewed and Electronically Signed By: Gary Dao Signed Date: 04/21/2024 09:50 ET Workstation ID: [id number] Transcribed By: Self Edit Transcribed Date: 04/21/2024 09:45 ET Mily Gordon MD IM BI PROCEDURES Final Result * COLONOSCOPY Anesthesia - MAC; [facility] ENDOSCOPY (03/16/2024 12:25 PM EST) Anatomical Region Laterality Modality Endoscopy 03/16/2024 12:1 0 PM EST Narrative 03/16/2024 12:25 PM EST [facility] GI Patient Name: Alina Moody Procedure Date: 03/16/2024 12:10 PM Date of : 1975 Age: 48 Room: ROOM 16 Gender: Female Note Status: Finalized Attending MD: Chloe Hinson DO, [id number] Procedure Date No Time: 03/16/2024 Procedure: Colonoscopy [...] the physician, the nurse, the anesthesiologist, the federal aid coordinator and the general service technician in the pre-procedure area in the [...] malignant neoplasm of colon CPT copyright 2020 [employer]. All rights reserved. The codes documented in this report are preliminary and upon packaging line attendant review may be revised to meet current compliance requirements. CHLOE HINSON Chloe Hinson DO 03/16/2024 12:25:36 PM This report has been signed electronically.Chloe Hinson DO Number of Addenda: 0 Note Initiated On: 03/16/2024 12:10 PM Scope Withdrawal Time: 0 hours 6 minutes 6 seconds Scope In: 12:13:45 PM Scope Out: 12:23:32 PM Endoscopy Department at [address] [address] Procedure Note Chloe Hinson DO - 03/16/2024 [facility] GI Patient Name: Alina Moody Procedure Date: 03/16/2024 12:10 PM Date of : 1975 Age: 48 Room: ROOM 16 Gender: Female Note Status: Finalized Attending MD: Chloe Hinson DO,[id number] Procedure Date No Time: 03/16/2024 Procedure: Colonoscopy [...] the physician, the nurse, the anesthesiologist, the federal aid coordinator and thetechnician in the pre-procedure area in [...] for malignantneoplasm of colon CPT copyright 2020 [employer]. All rights reserved. The codes documented in this report are preliminary and upon packaging line attendant reviewmay be revised to meet current compliance requirements. CHLOE HINSON Chloe Hinson DO 03/16/2024 12:25:36 PM This report has been signed electronically.Chloe Hinson DO Number of Addenda: 0 Note Initiated On: 03/16/2024 12:10 PM Scope Withdrawal Time: 0 hours 6 minutes 6 seconds Scope In: 12:13:45 PM Scope Out: 12:23:32 PM Endoscopy Department at [address] [address] Result [facility] Chloe Hinson DO GI~PROCEDURE ORDERABLES Final Re sult * Cervical Cancer Screening: HPV (01/13/2023) Pathologist [facility] Cervical Cancer Screening: HPV abstracted, negative Result [facility] Provider HEALTH MAINTENANCE Final Result * Hemoglobin A1c (06/17/2021) [facility] Hemoglobin A1C 6.1 <=6.5 % Blood Venous blood specimen / Unknown Result [facility] Provider LAB BLOOD ORDERABLES Cecilia l Result * Lipid panel (03/15/2020) [facility] LDL/HDL Ratio 3 0 - 4 Triglycerides 92 0 - 150 mg/dL Cholesterol 154 0 - 200 mg/dL HDL 47 >=40 mg/dL LDL Cholesterol 89 0 - 100 mg/dL Blood Venous blood specimen / Unknown Result [facility] Provider LAB BLOOD ORDERABLES Cecilia l Result * Urine Albumin Creatinine Ratio (07/21/2018) Pathologist [facility] Urine Albumin Creatinine Ratio abstracted Result [facility] Historical Provider HEALTH MAINTENANCE Final Result from Last 3 Months or Most Recently Relevant to Health Maintenance Insurance [facility] MEDICARE Member Subscriber Plan / Payer (Ef fective 2021-Present) Name:Alina Chapman Relation to Subscriber:Self Name:Alina Chapman Payer ID:[id number] Group ID:[id number] Type:Not on file Address: [address] [place] [phone] MEDICAID - [place] Care Teams Sales Representative Leather Goods Relationship Specialty Start Date End Date Mily Gordon MD [address] [place] [address] , [address] [facility] Physician Associ D/B/A: [facility] CHAPO Bell PCP - General 02/09/24
--- OUTSIDE RECORDS SUMMARY | 2024-12-12 09:38 | XMS_ITS ---
Author Name [facility] Organization Unknown Care Team Organization Name Specialty Phone Email Start Date End Da te [facility] Primary Care 03/18/2022 12/28/19 24
[2024-12-12 11:10] LABS: Folate 5.9 ng/mL (> or = 4.0); Vitamin B12 247 pg/mL (200-900)
== END 2024-12-12 09:15 | disposition home or self-care (01) ==
LOC: HO.LAB 09:14
PROVIDERS: Visit Provider Internal Medicine
DX: E53.8 Deficiency of other specified B group vitamins (principal)
CPT/HCPCS: 36415; 82607; 82746

== ENCOUNTER 2024-12-15 08:38 | Outpatient (AMB) | payer OTHER, SELFPAY ==
--- NOTE | 2024-12-15 08:52 | AM.OFFVISNUR ---
Intake Visit Reasons: B12 Shot Allergies morphine Adverse Reaction (Severe, Verified 08/30/24 08:26) Rash levothyroxine Adverse Reaction (Intermediate, Verified 08/30/24 08:26) Headache Office Meds cyanocobalamin (vitamin B-12) 1,000 mcg/mL injection solution Performing Provider: Mily Gordon MD [facility] Administered by: Roxanne Yan LPN on 12/15/24 08:52 Dose Route Admin Location Dispensed Lot Number Expiration Date [facility] Charge Hand 1,000 mcg IM right deltoid 1 mL [id number] 02/07/27 22586-504-70 VITRUVIAS THERA Total Dispensed Waste 1 mL 0 % Assessment & Plan Assessment & Plan Orders: Orders AMB Vitamin B12 Injection Patient Supplied Today E53.8 - Deficiency of other specified B group vitamins Coding
--- OUTSIDE RECORDS SUMMARY | 2024-12-15 08:53 | XMS_ITS | Clinical Summary ---
Author Organization [facility] Address [address] [place] [address] Phone Care Team Providers Care Stores Laborer Name Role Phone Mily Gordon MD Primary Care Provider [phone] Allergies Active Allergy Reactions Criticality Noted Date [...] daily. 03/06/20 Active medical supply, miscellaneous (PILL FLUX PLANT OPERATOR AND CONTAINER MISC) MISC. DEVICES (PILL FLUX PLANT OPERATOR) MISC 1 Device by Does not apply route Once. 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 ([facility] V24, [facility] V28) 07/06/2017 Depression 06/12/2016 Allergic rhinitis 03/05/2016 Thyroid nodule 01/02/2016 Carpal tunnel syndrome 06/26/2015 Overview (02/09/2024): Comments: NCS 04/2015 Insomnia 10/27/2014 Immunizations Name Administration Dates Next Due Influenza Quadravalent, MDCK , 0.5ml, preservative free (Flucelvax) 6mo and older 02/10/2020 Tdap Tetanus diptheria acell ular pertussis (Boostrix; Adacel) 7yo and older 01/02/2016 Surgical History Surgery Date Site/Laterality Comments SECTION PROCEDURE: [place] DELIVERY ONLY; COMMENT: x3 CHOLECYSTECTOMY PROCEDURE: HISTORICAL [...] recommendations were conveyed to the patient via educational technologist. BREAST DENSITY: B - There are scattered areas of fibroglandular density. BI-RADS CATEGORY: 1 - NEGATIVE RECOMMENDATION: Mammography: Screening bilateral mammogram is recommended in 1 year. Mammo Location: [facility], [address] [place] [address], [id number], . -------- FINAL REPORT -------- Dictated By: Gary Dao Dictated Date: 04/21/2024 09:45 ET Assigned Physician: Kataoka, Milliam Reviewed and Electronically Signed By: Gary Dao Signed Date: 04/21/2024 09:50 ET Workstation ID: [id number] Transcribed By: Self Edit Transcribed Date: 04/21/2024 [...] recommended in 1 year. Mammo Location: [facility], [address] [place] [address], [id number], . -------- FINAL REPORT -------- Dictated By: Gary Dao Dictated Date: 04/21/2024 09:45 ET Assigned Physician: Gary Dao Reviewed and Electronically Signed By: Gary Dao Signed Date: 04/21/2024 09:50 ET Workstation ID: [id number] Transcribed By: Self Edit Transcribed Date: 04/21/2024 09:45 ET Mily Gordon MD IM BI PROCEDURES Final Result * COLONOSCOPY Anesthesia - MAC; [facility] ENDOSCOPY (03/16/2024 12:25 PM EST) Anatomical Region Laterality Modality Endoscopy 03/16/2024 12:1 0 PM EST Narrative 03/16/2024 12:[address] [facility] GI Patient Name: Alina Moody Procedure Date: 03/16/2024 12:10 PM Date of : 1975 Age: 48 Room: ROOM 16 Gender: Female Note Status: Finalized Attending MD: Chloe Hinson DO, [id number] Procedure Date No Time: 03/16/2024 Procedure: Colonoscopy [...] the physician, the nurse, the anesthesiologist, the cardiovascular radiologic technologist and the truck engine technician in the pre-procedure area in the [...] malignant neoplasm of colon CPT copyright 2020 [employer]. All rights reserved. The codes documented in this report are preliminary and upon stable helper review may be revised to meet current compliance requirements. CHLOE HINSON Chloe Hinson DO 03/16/2024 12:25:36 PM This report has been signed electronically.Chloe Hinson DO Number of Addenda: 0 Note Initiated On: 03/16/2024 12:10 PM Scope Withdrawal Time: 0 hours 6 minutes 6 seconds Scope In: 12:13:45 PM Scope Out: 12:23:32 PM Endoscopy Department at [address] [address] Procedure Note Chloe Hinson DO - 03/16/2024 [facility] GI Patient Name: Alina Moody Procedure Date: 03/16/2024 12:10 PM Date of : 1975 Age: 48 Room: ROOM 16 Gender: Female Note Status: Finalized Attending MD: Chloe Hinson DO,[id number] Procedure Date No Time: 03/16/2024 Procedure: Colonoscopy Indications: Screening for colorectal malignant neoplasm Providers: Chloe Hinosn DO Referring MD: Lyn IVON Heidi, PA-C [...] the physician, the nurse, the anesthesiologist, the cardiovascular radiologic technologist and thetechnician in the pre-procedure area in [...] for malignantneoplasm of colon CPT copyright 2020 [employer]. All rights reserved. The codes documented in this report are preliminary and upon stable helper reviewmay be revised to meet current compliance requirements. CHLOE HINSON Chole Hinson DO 03/16/2024 12:25:36 PM This report has been signed electronically.Chloe Hinson DO Number of Addenda: 0 Note Initiated On: 03/16/2024 12:10 PM Scope Withdrawal Time: 0 hours 6 minutes 6 seconds Scope In: 12:13:45 PM Scope Out: 12:23:32 PM Endoscopy Department at [address] [address] Result [facility] Chloe Hinson DO GI~PROCEDURE ORDERABLES Final Re sult * Cervical Cancer Screening: HPV (01/13/2023) [facility]ologist [facility] Cervical Cancer Screening: HPV abstracted, negative Result [facility] Provider HEALTH MAINTENANCE Final Result * Hemoglobin A1c (06/17/2021) [facility] Hemoglobin A1C 6.1 <=6.5 % Blood Venous blood specimen / Unknown Result [facility] Provider LAB BLOOD ORDERABLES Cecilia l Result * Lipid panel (03/15/2020) [facility] LDL/HDL Ratio 3 0 - 4 Triglycerides 92 0 - 150 mg/dL Cholesterol 154 0 - 200 mg/dL HDL 47 >=40 mg/dL LDL Cholesterol 89 0 - 100 mg/dL Blood Venous blood specimen / Unknown Result [facility] Provider LAB BLOOD ORDERABLES Cecilia l Result * Urine Albumin Creatinine Ratio (07/21/2018) [facility]ologist [facility] Urine Albumin Creatinine Ratio abstracted Result [facility] Historical Provider HEALTH MAINTENANCE Final Result from Last 3 Months or Most Recently Relevant to Health Maintenance Insurance [facility] MEDICARE Member Subscriber Plan / Payer (Ef fective 2021-Present) Name:Alina Chapman Relation to Subscriber:Self Name:Alina Chapman Payer ID:[id number] Group ID:[id number] Type:Not on file Address: [address] [place] [id number] MEDICAID - [place] Care Teams Stores Laborer Relationship Specialty Start Date End Date Mily Gordon MD [address] [place] [address] , [address] [facility] Physician Associ D/B/A: [facility] CHAPO Bell PCP - General 02/09/24
== END 2024-12-15 08:53 | disposition home or self-care (01) ==
LOC: HO.HMCH 08:38
PROVIDERS: PCP Internal Medicine; Visit Provider Internal Medicine
DX: E53.8 Deficiency of other specified B group vitamins (principal)

== ENCOUNTER → 2024-12-15 08:38 | Outpatient (BNVA) | payer OTHER, SELFPAY | PROVIDERS: PCP Internal Medicine; Visit Provider Internal Medicine | DX: E53.8 Deficiency of other specified B group vitamins (principal) | CPT/HCPCS: 96372; J3420 ==

== ENCOUNTER 2025-01-18 07:34 | Outpatient (AMB) | payer OTHER, SELFPAY ==
--- OUTSIDE RECORDS SUMMARY | 2025-01-18 07:38 | XMS_ITS | Clinical Summary ---
Author Organization [facility] Address [address] [place] [address] Phone Care Team Providers Care Caster Investment Casting Name Role Phone Mily Gordon MD Primary Care Provider [phone] Allergies Active Allergy Reactions Criticality Noted Date [...] daily. 03/06/20 Active medical supply, miscellaneous (PILL CLOTH WINDER MACHINE OPERATOR AND CONTAINER MISC) MISC. DEVICES (PILL CLOTH WINDER MACHINE OPERATOR) MISC 1 Device by Does not apply route Once. 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 ([facility] V24, [facility] V28) 07/06/2017 Depression 06/12/2016 Allergic rhinitis 03/05/2016 Thyroid nodule 01/02/2016 Carpal tunnel syndrome 06/26/2015 Overview (02/09/2024): Comments: NCS 04/2015 Insomnia 10/27/2014 Immunizations Name Administration Dates Next Due Influenza Quadravalent, MDCK , 0.5ml, preservative free (Flucelvax) 6mo and older 02/10/2020 Tdap Tetanus diptheria acell ular pertussis (Boostrix; Adacel) 7yo and older 01/02/2016 Surgical History Surgery Date Site/Laterality Comments SECTION PROCEDURE: [place] DELIVERY ONLY; COMMENT: x3 CHOLECYSTECTOMY PROCEDURE: HISTORICAL [...] 06/17/2021 Zoster Vaccines (1 of 2) 2023 Depression Screening 05/11/2024 COVID-19 Vaccine ( - season) 2025 05/06/2021, 10/01/2020, 09/01/2020 Influenza Vaccine (#1) 2025 [...] recommendations were conveyed to the patient via soil technologist. BREAST DENSITY: B - There are scattered areas of fibroglandular density. BI-RADS CATEGORY: 1 - NEGATIVE RECOMMENDATION: Mammography: Screening bilateral mammogram is recommended in 1 year. Mammo Location: [facility], [address] [place] [address], [phone], . -------- FINAL REPORT -------- Dictated By: Gary Dao Dictated Date: 04/21/2024 09:45 ET Assigned Physician: Kataoka, Milliam Reviewed and Electronically Signed By: Gary Dao Signed Date: 04/21/2024 09:50 ET Workstation ID: [id number] Transcribed By: Self Edit Transcribed Date: 04/21/2024 [...] is recommended in 1 year. Mammo Location: [facility], [address] [place] [address], [id number], . -------- FINAL REPORT -------- Dictated By: Gary Dao Dictated Date: 04/21/2024 09:45 ET Assigned Physician: Gary Dao Reviewed and Electronically Signed By: Gary Dao Signed Date: 04/21/2024 09:50 ET Workstation ID: [id number] Transcribed By: Self Edit Transcribed Date: 04/21/2024 09:45 ET Mily Gordon MD IM BI PROCEDURES Final Result * COLONOSCOPY Anesthesia - MAC; [facility] ENDOSCOPY (03/16/2024 12:25 PM EST) Anatomical Region Laterality Modality Endoscopy 03/16/2024 12:1 0 PM EST Narrative 03/16/2024 12:25 PM EST [facility] GI Patient Name: Alina Moody Procedure Date: 03/16/2024 12:10 PM Date of : 1975 Age: 48 Room: ROOM 16 Gender: Female Note Status: Finalized Attending MD: Chloe Hinson DO, [id number] Procedure Date No Time: 03/16/2024 Procedure: Colonoscopy [...] the physician, the nurse, the anesthesiologist, the medical support specialist and the pm technician in the pre-procedure area in the [...] malignant neoplasm of colon CPT copyright 2020 [employer]. All rights reserved. The codes documented in this report are preliminary and upon horticulture superintendent review may be revised to meet current compliance requirements. CHLOE HINSON Chloe Hinson DO 03/16/2024 12:25:36 PM This report has been signed electronically.Chloe Hinson DO Number of Addenda: 0 Note Initiated On: 03/16/2024 12:10 PM Scope Withdrawal Time: 0 hours 6 minutes 6 seconds Scope In: 12:13:45 PM Scope Out: 12:23:32 PM Endoscopy Department at [address] [address] Procedure Note Chloe Hinson DO - 03/16/2024 [facility] GI Patient Name: Alina Moody Procedure Date: 03/16/2024 12:10 PM Date of : 1975 Age: 48 Room: ROOM 16 Gender: Female Note Status: Finalized Attending MD: Chloe Hinson DO,[id number] Procedure Date No Time: 03/16/2024 Procedure: Colonoscopy [...] the physician, the nurse, the anesthesiologist, the medical support specialist and thetechnician in the pre-procedure area in [...] for malignantneoplasm of colon CPT copyright 2020 [employer]. All rights reserved. The codes documented in this report are preliminary and upon horticulture superintendent reviewmay be revised to meet current compliance requirements. CHLOE HINSON Chloe Hinson DO 03/16/2024 12:25:36 PM This report has been signed electronically.Chloe Hinson DO Number of Addenda: 0 Note Initiated On: 03/16/2024 12:10 PM Scope Withdrawal Time: 0 hours 6 minutes 6 seconds Scope In: 12:13:45 PM Scope Out: 12:23:32 PM Endoscopy Department at [address] [address] Result [facility] Chloe Hinson DO GI~PROCEDURE ORDERABLES Final Re sult * Cervical Cancer Screening: HPV (01/13/2023) Pathologist [facility] Cervical Cancer Screening: HPV abstracted, negative Result [facility] Provider HEALTH MAINTENANCE Final Result * Hemoglobin A1c (06/17/2021) [facility] Hemoglobin A1C 6.1 <=6.5 % Blood Venous blood specimen / Unknown Result [facility] Provider LAB BLOOD ORDERABLES Cecilia l Result * Lipid panel (03/15/2020) [facility] LDL/HDL Ratio 3 0 - 4 Triglycerides 92 0 - 150 mg/dL Cholesterol 154 0 - 200 mg/dL HDL 47 >=40 mg/dL LDL Cholesterol 89 0 - 100 mg/dL Blood Venous blood specimen / Unknown Result [facility] Provider LAB BLOOD ORDERABLES Cecilia l Result * Urine Albumin Creatinine Ratio (07/21/2018) Pathologist [facility] Urine Albumin Creatinine Ratio abstracted Result [facility] Historical Provider HEALTH MAINTENANCE Final Result from Last 3 Months or Most Recently Relevant to Health Maintenance Insurance [facility] MEDICARE Member Subscriber Plan / Payer (Ef fective 2021-Present) Name:Alina Chapman Relation to Subscriber:Self Name:Alina Chapman Payer ID:[id number] Group ID:[id number] Type:Not on file Address: [address] [place] [id number] MEDICAID - [place] Care Teams Caster Investment Casting Relationship Specialty Start Date End Date Mily Gordon MD [address] [place] [address] , [address] [facility] Physician Associ D/B/A: [facility] CHAPO Bell PCP - General 02/09/24
--- NOTE | 2025-01-18 08:27 | AM.OFFVISNUR ---
Intake Visit Reasons: B12 Allergies morphine Adverse Reaction (Severe, Verified 08/30/24 08:26) Rash levothyroxine Adverse Reaction (Intermediate, Verified 08/30/24 08:26) Headache Office Meds cyanocobalamin (vitamin B-12) 1,000 mcg/mL injection solution Performing Provider: Mily Gordon MD Performing Location: [facility] Administered by: Latisha Braswell RN on 01/18/25 08:27 Dose Route Admin Location Dispensed Lot Number Expiration Date [facility] Material Control Associate 1,000 mcg IM 1 mL [id number] 02/07/27 68763-559-08 DARIANA PAYNE Total Dispensed Waste 1 mL 0 % Assessment & Plan Assessment & Plan Orders: Orders AMB Vitamin B12 Injection Patient Supplied Today E53.8 - Deficiency of other specified B group vitamins Coding
== END 2025-01-18 08:35 | disposition home or self-care (01) ==
LOC: HO.HMCH 07:35
PROVIDERS: PCP Internal Medicine; Visit Provider Internal Medicine
DX: E53.8 Deficiency of other specified B group vitamins (principal)

== ENCOUNTER → 2025-01-18 07:34 | Outpatient (BNVA) | payer OTHER, SELFPAY | PROVIDERS: PCP Internal Medicine; Visit Provider Internal Medicine | DX: E53.8 Deficiency of other specified B group vitamins (principal) | CPT/HCPCS: 96372; J3420 ==

== ENCOUNTER 2025-01-23 07:56 | Outpatient (AMB) | payer OTHER, SELFPAY ==
--- OUTSIDE RECORDS SUMMARY | 2025-01-23 08:00 | XMS_ITS | Clinical Summary ---
Author Organization [facility] Address [address] [place] [address] Phone Care Team Providers Care Hat Mender Name Role Phone Mily Gordon MD Primary Care Provider [phone] Allergies Active Allergy Reactions Criticality Noted Date [...] daily. 03/06/20 Active medical supply, miscellaneous (PILL REPTILE KEEPER AND CONTAINER MISC) MISC. DEVICES (PILL REPTILE KEEPER) MISC 1 Device by Does not apply route Once. 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 V24, [facility] V28) 07/06/2017 Depression 06/12/2016 Allergic rhinitis 03/05/2016 Thyroid nodule 01/02/2016 Carpal tunnel syndrome 06/26/2015 Overview (02/09/2024): Comments: NCS 04/2015 Insomnia 10/27/2014 Immunizations Name Administration Dates Next Due Influenza Quadravalent, MDCK , 0.5ml, preservative free (Flucelvax) 6mo and older 02/10/2020 Tdap Tetanus diptheria acell ular pertussis (Boostrix; Adacel) 7yo and older 01/02/2016 Surgical History Surgery Date Site/Laterality Comments SECTION PROCEDURE: [place] DELIVERY ONLY; COMMENT: x3 CHOLECYSTECTOMY PROCEDURE: HISTORICAL [...] recommendations were conveyed to the patient via applied technologist. BREAST DENSITY: B - There are scattered areas of fibroglandular density. BI-RADS CATEGORY: 1 - NEGATIVE RECOMMENDATION: Mammography: Screening bilateral mammogram is recommended in 1 year. Mammo Location: [facility], [address] [place] [address], [phone], . -------- FINAL REPORT -------- Dictated By: Gary Dao Dictated Date: 04/21/2024 09:45 ET Assigned Physician: Kataoka, Milliam Reviewed and Electronically Signed By: Gary Dao Signed Date: 04/21/2024 09:50 ET Workstation ID: [id number] Transcribed By: Self Edit Transcribed Date: 04/21/2024 [...] is recommended in 1 year. Mammo Location: [facility], [address] [place] [address], [id number], . -------- FINAL REPORT -------- Dictated By: Gary Dao Dictated Date: 04/21/2024 09:45 ET Assigned Physician: Gary Dao Reviewed and Electronically Signed By: Gary Dao Signed Date: 04/21/2024 09:50 ET Workstation ID: [id number] Transcribed By: Self Edit Transcribed Date: 04/21/2024 09:45 ET Mily Gordon MD IM BI PROCEDURES Final Result * COLONOSCOPY Anesthesia - MAC; [facility] ENDOSCOPY (03/16/2024 12:25 PM EST) Anatomical Region Laterality Modality Endoscopy 03/16/2024 12:1 0 PM EST Narrative 03/16/2024 12:25 PM EST [facility] GI Patient Name: Alina Moody Procedure Date: 03/16/2024 12:10 PM Date of : 1975 Age: 48 Room: ROOM 16 Gender: Female Note Status: Finalized Attending MD: Chloe Hinson DO, [id number] Procedure Date No Time: 03/16/2024 Procedure: Colonoscopy [...] the physician, the nurse, the anesthesiologist, the insecticide maker and the avionics repair technician in the pre-procedure area in the [...] malignant neoplasm of colon CPT copyright 2020 [employer]. All rights reserved. The codes documented in this report are preliminary and upon janitorial services supervisor review may be revised to meet current compliance requirements. CHLOE HINSON Chloe Hinson DO 03/16/2024 12:25:36 PM This report has been signed electronically.Chloe Hinson DO Number of Addenda: 0 Note Initiated On: 03/16/2024 12:10 PM Scope Withdrawal Time: 0 hours 6 minutes 6 seconds Scope In: 12:13:45 PM Scope Out: 12:23:32 PM Endoscopy Department at [address] [address] Procedure Note Chloe Hinson DO - 03/16/2024 [facility] GI Patient Name: Alina Moody Procedure Date: 03/16/2024 12:10 PM Date of : 1975 Age: 48 Room: ROOM 16 Gender: Female Note Status: Finalized Attending MD: Chloe Hinson DO,[id number] Procedure Date No Time: 03/16/2024 Procedure: Colonoscopy [...] the physician, the nurse, the anesthesiologist, the insecticide maker and thetechnician in the pre-procedure area in [...] for malignantneoplasm of colon CPT copyright 2020 [employer]. All rights reserved. The codes documented in this report are preliminary and upon janitorial services supervisor reviewmay be revised to meet current compliance requirements. CHLOE HINSON Chloe Hinson DO 03/16/2024 12:25:36 PM This report has been signed electronically.Chloe Hinson DO Number of Addenda: 0 Note Initiated On: 03/16/2024 12:10 PM Scope Withdrawal Time: 0 hours 6 minutes 6 seconds Scope In: 12:13:45 PM Scope Out: 12:23:32 PM Endoscopy Department at [address] [address] Result [facility] Chloe Hinson DO GI~PROCEDURE ORDERABLES Final Re sult * Cervical Cancer Screening: HPV (01/13/2023) Pathologist [facility] Cervical Cancer Screening: HPV abstracted, negative Result [facility] Provider HEALTH MAINTENANCE Final Result * Hemoglobin A1c (06/17/2021) [facility] Hemoglobin A1C 6.1 <=6.5 % Blood Venous blood specimen / Unknown Result [facility] Provider LAB BLOOD ORDERABLES Cecilia l Result * Lipid panel (03/15/2020) [facility] LDL/HDL Ratio 3 0 - 4 Triglycerides 92 0 - 150 mg/dL Cholesterol 154 0 - 200 mg/dL HDL 47 >=40 mg/dL LDL Cholesterol 89 0 - 100 mg/dL Blood Venous blood specimen / Unknown Result [facility] Provider LAB BLOOD ORDERABLES Cecilia l Result * Urine Albumin Creatinine Ratio (07/21/2018) Pathologist [facility] Urine Albumin Creatinine Ratio abstracted Result [facility] Historical Provider HEALTH MAINTENANCE Final Result from Last 3 Months or Most Recently Relevant to Health Maintenance Insurance [facility] MEDICARE Member Subscriber Plan / Payer (Ef fective 2021-Present) Name:Alina Chapman Relation to Subscriber:Self Name:Alina Chapman Payer ID:[id number] Group ID:[id number] Type:Not on file Address: [address] [place] [phone] MEDICAID - [place] Care Teams Hat Mender Relationship Specialty Start Date End Date Mily Gordon MD [address] [place] [address] , [address] [facility] Physician Associ D/B/A: [facility] CHAPO Bell PCP - General 02/09/24
[2025-01-23 08:01] VITALS: BP 122/82; PULSE 66; O2SAT 98; BMI 35.9
--- NOTE | 2025-01-23 08:01 | MHC.PC.OV ---
Vital Signs 01/23/25 08:01 Height 5 ft 5.75 in Weight 221 lb BMI 35.9 BP 122/82 Blood Pressure Location Lt brachial Position Sitting Pulse 66 Pulse Source Pulse Oximeter Pulse Oximetry (%) 98 Oxygen Delivery Method Room Air Intake Visit Reasons: bp Wet Process Miller Head Assistant Required: No Accompanied by: Self / Same As Patient Allergies morphine Adverse Reaction (Severe, Verified 01/23/25 08:18) Rash levothyroxine Adverse Reaction (Intermediate, Verified 01/23/25 08:18) Headache Medication List - Last Reconciled 01/23/25 by Mily Gordon MD albuterol sulfate 90 mcg/actuation 0 mcg inhalation albuterol sulfate 90 mcg/actuation (Ventolin HFA) 1 inh inhalation QID PRN 30 days aripiprazole 10 mg PO DAILY 90 days ascorbic acid (vitamin C) 500 mg PO DAILY 90 days blood pressure monitor As directed buspirone mg PO cholecalciferol (vitamin D3) (Vitamin D3) 50 mcg PO DAILY 90 days cyanocobalamin (vitamin B-12) 1,000 mcg IM Q4W 4 weeks cyclobenzaprine 5 mg PO BEDTIME diclofenac sodium 1% 2 grams topical QID 30 days ferrous sulfate 325 mg PO Q OTHER DAY 30 days heating pads As directed hydroxyzine HCl 25 mg PO BEDTIME incontinence pad, liner, disp Use 1 pad once a day loperamide 2 mg PO Q6H PRN 2 days loratadine 10 mg PO DAILY PRN 90 days losartan 25 mg PO DAILY 90 days naproxen 500 mg PO BID PRN [neck pillow As directed] sertraline 100 mg PO BID sumatriptan succinate 50 mg PO DIRECTED PRN 30 days Synthroid (levothyroxine) 150 mcg PO DAILY 30 days NS syringe with needle ([employer] Luer Lock Syringe with needle) Use 1 needle once a month triamcinolone acetonide intranasal underpads (Bed Underpads) As directed [wipes As directed] Tobacco use date assessed: 07/28/24 Dental Screening Dental Screen Date: 07/28/24 HPI HPI Comments History of Present Illness Details The patient is a 49-year-old female presenting for management of multiple chronic conditions including pernicious anemia, Roxanne's thyroiditis, and depression. Pernicious anemia has been managed with vitamin B12 injections, which have improved her levels to over 200, and she continues to receive these injections monthly. Her hemoglobin was last recorded at 13.5, and iron supplementation has been adjusted to once a week to prevent excessive hemoglobin levels. Roxanne's thyroiditis is being managed with Synthroid at a dose of 150 mcg, which has stabilized her thyroid function tests. Regular monitoring is planned, with the next set of labs scheduled for May. The patient experiences depression, for which she is taking sertraline. She also reports anxiety managed with buspirone and occasional use of hydroxyzine for sleep. She has urinary incontinence, managed with incontinence pads, and migraines treated with sumatriptan as needed. The patient has eczema, for which she uses triamcinolone cream intermittently. She is in perimenopause, with discussions about the onset of menopause expected around age 50. [facility] Medical History (Updated 01/23/25 @ 09:03 by Mily Gordon MD) Sciatica of right side without back pain Obesity (BMI 30-39.9) Degenerative disc disease, lumbar Osteoarthritis involving multiple joints on both sides of body Trapezius muscle strain Shoulder pain, right Surgical History History of cholecystectomy History of Family History Mother Lung cancer Father Hypercholesteremia Kidney stone Renal failure Family/Other Mental health disorder Sister Lupus Social History Household Members: Spouse and Children Housing: House Alcohol intake: never Patient Tobacco Use Status: Never used Tobacco Tobacco use type: Cigarette e-Cigarette/Vaping Use: Never Used Second Hand Smoke Exposure: No service: No Current occupational status: unemployed and disabled Cognitive needs: No Hearing needs: No Vision needs: Yes Questionnaire Thrive Questionnaire Date Thrive assessed: 08/30/24 I am a: Patient What is your living situation today?: I have a steady place to live Within the past 12 months, did the food you bought not last and you didn't have the money to get more?: Sometimes True Within the past 12 months, did you worry whether your food would run out before you got money to buy more?: Sometimes True Do you have trouble paying for medicines?: No Do you have trouble getting transportation to medical appointments?: No Do you have trouble paying your heating and electricity bill?: Yes Do you have trouble taking care of your child, family member or friend?: No Do you have trouble with day-to-day activities such as bathing, preparing meals, shopping, managing finances, etc.?: Yes Are you currently unemployed and looking for a job?: No Are you interested in more education?: I choose not to answer this question Please select the resources that you would like help with: Utilities Currently or been in a relationship where the following occur: No concerns reported THRIVE Score: 3 MANDY-7 AMB Questionnaire MANDY-7 Date MANDY - 7 assessed: 08/30/24 Source: Developed by Drs. Wilton Caruso, Juliane Sneed, Stefan Ambrose and colleagues, with an educational shawna from [employer]. Review of Systems Const All systems reviewed & are unremarkable except as noted in HPI and below Card Denies chest pain at rest, Denies chest pain with activity, Denies edema, Denies irregular heart rhythm, Denies claudication, Denies dyspnea, Denies dyspnea on exertion, Denies orthopnea, Denies paroxysmal nocturnal dyspnea and Denies slow heart rate Resp Denies cough, Denies dyspnea and Denies dyspnea on exertion GI Denies abdominal pain, Denies change in bowel habits, Denies excessive flatus, Denies nausea and Denies vomiting Physical exam (Primary Care) Vital Signs: Last Vital Signs Pulse 66 01/23/25 08:01 BP 122/82 01/23/25 08:01 Pulse Ox 98 01/23/25 08:01 Oxygen Delivery Method Room Air 01/23/25 08:01 BMI result Body Mass Index 35.9 Tobacco/Smoking Status: Tobacco use Status Tobacco use date assessed 07/28/24 01/23/25 08:03 Patient Tobacco Use Status Never used Tobacco 01/23/25 08:03 Tobacco use type Cigarette 01/23/25 08:03 e-Cigarette/Vaping Use Never Used 01/23/25 08:03 Thrive Assessment: Date of Thrive Assessment Date Thrive assessed 08/30/24 01/23/25 08:03 Currently or been in a relationship where the following occur: No concerns reported Resp Effort & Inspection: normal respiratory effort Auscultation: clear to auscultation bilaterally Cardio Jugular venous distension: no JVD Rate: regular rate Rhythm: regular rhythm Heart sounds: S1 normal heart sound present and S2 normal heart sound present Extrem General: Yes full ROM Coding Level of Care Code Est Pt Level 4 (46063) Complex EM visit Add On G2211 Diagnoses Mild recurrent major depression F33.0 MANDY (generalized anxiety disorder) F41.1 Essential hypertension I10 Autoimmune thyroiditis E06.3 Pernicious anemia D51.0 Time Spent (min) 23 Assessment & Plan Assessment & Plan (1) Mild recurrent major depression: Code(s): F33.0 - Major depressive disorder, recurrent, mild Category: Medical (2) MANDY (generalized anxiety disorder): Code(s): F41.1 - Generalized anxiety disorder Category: Medical (3) Essential hypertension: Code(s): I10 - Essential (primary) hypertension Category: Medical (4) Autoimmune thyroiditis: Code(s): E06.3 - Autoimmune thyroiditis Category: Medical (5) Pernicious anemia: Code(s): D51.0 - Vitamin B12 deficiency anemia due to intrinsic factor deficiency Category: Medical Plan Plan Patient was informed and verbally consented to the use of an ambient scribe for clinic note documentation during this visit. 1. Pernicious Anemia Pernicious anemia is being managed with monthly vitamin B12 injections, which have improved the patient's B12 levels to over 200. The patient's hemoglobin level is stable at 13.5, and iron supplementation has been adjusted to once a week to prevent excessive hemoglobin levels. 2. Roxanne's Thyroiditis Roxanne's thyroiditis is managed with Synthroid at a dose of 150 mcg, which has stabilized the patient's thyroid function tests. Regular monitoring is planned, with the next set of labs scheduled for May. 3. Depression Depression is managed with sertraline, and the patient also reports anxiety managed with buspirone and occasional use of hydroxyzine for sleep. 4. Hypertension Continue Losartan. BP goal is equal or less than 130/80. Orders: Orders Vitamin B12 and Folate 4 Months E53.8 - Deficiency of other specified B group vitamins Vitamin D 25-OH Total 4 Months E55.9 - Vitamin D deficiency, unspecified Complete Blood Count Auto Diff 4 Months D64.9 - Anemia, unspecified IRON PROFILE 4 Months D64.9 - Anemia, unspecified Thyroid Stimulating Hormone 4 Months E06.3 - Autoimmune thyroiditis Medications: Changed From ferrous sulfate 325 mg PO Q OTHER DAY 30 days 15 tabs 2RF To ferrous sulfate 325 mg PO .once a week 4 tabs 2RF 30 days Refilled diclofenac sodium 1% 2 grams topical QID 100 grams 3RF 30 days M15.9 - Polyosteoarthritis, unspecified
== END 2025-01-23 08:28 | disposition home or self-care (01) ==
LOC: HO.HMCH 07:56
PROVIDERS: PCP Internal Medicine; Visit Provider Internal Medicine
DX: F33.0 Major depressive disorder, recurrent, mild (principal); F41.1 Generalized anxiety disorder; I10 Essential (primary) hypertension; E06.3 Autoimmune thyroiditis; D51.0 Vitamin B12 deficiency anemia due to intrinsic factor deficiency

== ENCOUNTER → 2025-01-23 07:56 | Outpatient (BNVA) | payer OTHER, SELFPAY | PROVIDERS: PCP Internal Medicine; Visit Provider Internal Medicine | DX: D51.0 Vitamin B12 deficiency anemia due to intrinsic factor deficiency (principal); E06.3 Autoimmune thyroiditis; R32 Unspecified urinary incontinence; L30.9 Dermatitis, unspecified; F33.0 Major depressive disorder, recurrent, mild; F41.1 Generalized anxiety disorder; I10 Essential (primary) hypertension; M15.9 Polyosteoarthritis, unspecified | CPT/HCPCS: 99212 ==

== ENCOUNTER 2025-02-17 07:57 | Outpatient (AMB) | payer OTHER, SELFPAY ==
--- NOTE | 2025-02-17 08:40 | AM.OFFVISNUR ---
Intake Visit Reasons: B12 Shot Allergies morphine Adverse Reaction (Severe, Verified 01/23/25 08:18) Rash levothyroxine Adverse Reaction (Intermediate, Verified 01/23/25 08:18) Headache Office Meds cyanocobalamin (vitamin B-12) 1,000 mcg/mL injection solution Performing Provider: Mily Gordon MD [place] [facility] Administered by: Roxanne Yan LPN on 02/17/25 08:40 Dose Route Admin Location Dispensed Lot Number Expiration Date [facility] Blunger Machine Operator 1,000 mcg IM right deltoid 1 mL [id number] 02/07/27 96227-440-39 [employer] Total Dispensed Waste 1 mL 0 % Assessment & Plan Assessment & Plan Orders: Orders AMB Vitamin B12 Injection Patient Supplied Today E53.8 - Deficiency of other specified B group vitamins Coding
== END 2025-02-17 08:41 | disposition home or self-care (01) ==
LOC: HO.HMCH 07:58
PROVIDERS: PCP Internal Medicine; Visit Provider Internal Medicine
DX: E53.8 Deficiency of other specified B group vitamins (principal)

== ENCOUNTER → 2025-02-17 07:57 | Outpatient (BNVA) | payer OTHER, SELFPAY | PROVIDERS: PCP Internal Medicine; Visit Provider Internal Medicine | DX: E53.8 Deficiency of other specified B group vitamins (principal) | CPT/HCPCS: 96372; J3420 ==

== ENCOUNTER 2025-02-24 08:11 | Outpatient (AMB) | payer OTHER, SELFPAY ==
--- NOTE | 2025-02-24 08:37 | AM.OFFVISNUR ---
Intake Visit Reasons: Flu Shot Allergies morphine Adverse Reaction (Severe, Verified 01/23/25 08:18) Rash levothyroxine Adverse Reaction (Intermediate, Verified 01/23/25 08:18) Headache Office Procedures Flu Questionnaire Does the patient have a severe egg allergy?: No Does the patient have severe life threatening allergies?: No Does the patient have a fever or illness today?: No Has the patient ever had Guillain-[place] Syndrome?: No Has the patient ever had any past reaction to a flu shot?: No Immunizations Fluarix [id number] (PF) 45 mcg (15 mcg x 3)/0.5 mL IM syringe Performing Provider: Mily Gordon MD [facility] Administered by: Latisha Braswell RN on 02/24/25 08:37 Dose Route Admin Location Dispensed Lot Number Expiration Date NVC Cube Machine Tender 0.5 mL IM Right Deltoid 0.5 mL [id number] 11/07/25 29291-808-12 [facility] Given Date VIS Provided VIS Publication Date 02/24/25 Single Vaccine 24 Eligibility Eligibility Date Funding Source Not [facility] Eligible 02/24/25 Private Assessment & Plan Assessment & Plan Orders: Orders Influenza [id number] Immunization Today Z23 - Encounter for immunization Coding
== END 2025-02-24 08:47 | disposition home or self-care (01) ==
LOC: HO.HMCH 08:11
PROVIDERS: PCP Internal Medicine; Visit Provider Internal Medicine
DX: Z23 Encounter for immunization (principal)

== ENCOUNTER → 2025-02-24 08:11 | Outpatient (BNVA) | payer OTHER, SELFPAY | PROVIDERS: PCP Internal Medicine; Visit Provider Internal Medicine | DX: Z23 Encounter for immunization (principal) | CPT/HCPCS: 90471; 90656 ==

== ENCOUNTER 2025-03-08 08:21 | Outpatient (REF) | payer OTHER, SELFPAY ==
--- NOTE | ~2025-03-08 | XR_ITS ---
EXAMINATION: XR CERVICAL SPINE 2-3 VIEWS HISTORY: M54.2 - Cervicalgia COMPARISON: Comparison is made with the prior examination dated 08/15/2022. FINDINGS: AP, lateral, swimmer's, and open-mouth odontoid views of the cervical spine are submitted. Osseous mineralization is normal. Seven cervical vertebral bodies are identified maintaining normal height and alignment without evidence of fracture or subluxation. There is moderate degenerative disc disease at the C5-6 level with disc space narrowing and osteophyte formation. Findings have progressed since the prior study. The remaining intervertebral disc spaces are maintained. The odontoid and lateral masses of C1 are intact. There is no prevertebral soft tissue swelling. XR/XR cervical spine 2V IMPRESSION: Moderate degenerative disc disease at the C5-6 level with progression since the prior study. Electronically signed by: Wilton Valdez MD 03/08/2025 08:45 AM EDT
--- OUTSIDE RECORDS SUMMARY | 2025-03-08 08:45 | XMS_ITS | Clinical Summary ---
Author Organization [facility] Address [address] [place] [address] Phone Care Team Providers Care Unionmelt Operator Name Role Phone Mily Gordon MD Primary Care Provider [phone] Allergies Active Allergy Reactions Criticality Noted Date [...] daily. 03/06/20 Active medical supply, miscellaneous (PILL ACADEMIC COACH AND CONTAINER MISC) MISC. DEVICES (PILL ACADEMIC COACH) MISC 1 Device by Does not apply route Once. 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 V24, [facility] V28) 07/06/2017 Depression 06/12/2016 Allergic rhinitis 03/05/2016 Thyroid nodule 01/02/2016 Carpal tunnel syndrome 06/26/2015 Overview (02/09/2024): Comments: NCS 04/2015 Insomnia 10/27/2014 Immunizations Immunization Administration Dates Next Due Influenza Quadravalent, MDCK , 0.5ml, preservative free (Flucelvax) 6mo and older 02/10/2020 Tdap Tetanus diptheria acell ular pertussis (Boostrix; Adacel) 7yo and older 01/02/2016 Surgical History Surgery Date Site/Laterality Comments SECTION PROCEDURE: [place] DELIVERY ONLY; COMMENT: x3 CHOLECYSTECTOMY PROCEDURE: HISTORICAL [...] Safety Answer Date Record ed Physical Abuse Unrecognized value 03/16/2024 Verbal Abuse Unrecognized value 03/16/2024 Comments No Sex and Gender Information [...] 2023 Depression Screening 05/11/2024 COVID-19 Vaccine ( season) 2025 05/06/2021, 10/01/2020, 09/01/2020 Influenza Vaccine (#1) 2025 , 02/24/2023, 04/16/2022, Additional history exists Cholesterol Screening (Lipid Panel) 03/15/2025 03/15/2020 DTaP,Tdap,and Td Vaccines (2 - Td or Tdap) 01/01/2026 01/02/2016 Breast Cancer Screening 04/21/2026 04/21/20, 03/25/2024, 03/19/2023, Additional history exists Cervical Cancer Screening: HPV 01/14/2028 01/13/2023 Colorectal Cancer Screening: Colonoscopy 03/16/2034 03/16/2024 RSV Immunization Adult Patients (1 - 1-dose 75+ series) 2048 HIB Vaccines Aged Out No longer eligi [...] recommendations were conveyed to the patient via fastener technologist. BREAST DENSITY: B - There are scattered areas of fibroglandular density. BI-RADS CATEGORY: 1 - NEGATIVE RECOMMENDATION: Mammography: Screening bilateral mammogram is recommended in 1 year. Mammo Location: [facility], [address] [place] [address], [address], . -------- FINAL REPORT -------- Dictated By: Gary Dao Dictated Date: 04/21/2024 09:45 ET Assigned Physician: Gary Dao Reviewed and Electronically Signed By: Gary Dao Signed Date: 04/21/2024 09:50 ET Workstation ID: [id number] Transcribed By: Self Edit Transcribed Date: 04/21/2024 [...] is recommended in 1 year. Mammo Location: [facility], [address] [place] [address], [address], . -------- FINAL REPORT -------- Dictated By: Gary Dao Dictated Date: 04/21/2024 09:45 ET Assigned Physician: Gary Dao Reviewed and Electronically Signed By: Gary Dao Signed Date: 04/21/2024 09:50 ET Workstation ID: [id number] Transcribed By: Self Edit Transcribed Date: 04/21/2024 09:45 ET Mily Gordon MD IMG BI PROCEDURES Final Result * COLONOSCOPY Anesthesia - MAC; [facility] ENDOSCOPY (03/16/2024 12:25 PM EST) Anatomical Region Laterality Modality Endoscopy 03/16/2024 12:1 0 PM EST Narrative 03/16/2024 12:25 PM EST [facility] GI Patient Name: Alina Moody Procedure Date: 03/16/2024 12:10 PM Date of : 1975 Age: 48 Room: ROOM 16 Gender: Female Note Status: Finalized Attending MD: Chloe Hinson DO, [id number] Procedure Date No Time: 03/16/2024 Procedure: Colonoscopy [...] the physician, the nurse, the anesthesiologist, the early childhood education specialist and the instrument and electrical technician in the pre-procedure area in the [...] malignant neoplasm of colon CPT copyright 2020 [employer]. All rights reserved. The codes documented in this report are preliminary and upon director of construction review may be revised to meet current compliance requirements. CHLOE HINSON Chloe Hinson DO 03/16/2024 12:25:36 PM This report has been signed electronically.Chloe Hinson DO Number of Addenda: 0 Note Initiated On: 03/16/2024 12:10 PM Scope Withdrawal Time: 0 hours 6 minutes 6 seconds Scope In: 12:13:45 PM Scope Out: 12:23:32 PM Endoscopy Department at [address] [address] Procedure Note Chloe Hinson DO - 03/16/2024 [facility] GI Patient Name: Alina Moody Procedure Date: 03/16/2024 12:10 PM Date of : 1975 Age: 48 Room: ROOM 16 Gender: Female Note Status: Finalized Attending MD: Chloe Hinson DO,[id number] Procedure Date No Time: 03/16/2024 Procedure: Colonoscopy [...] the physician, the nurse, the anesthesiologist, the early childhood education specialist and thetechnician in the pre-procedure area [...] in this report are preliminary and upon director of construction reviewmay be revised to meet current compliance requirements. CHLOE HINSON Chloe Hinson DO 03/16/2024 12:25:36 PM This report has been signed electronically.Chloe Hinson DO Number of Addenda: 0 Note Initiated On: 03/16/2024 12:10 PM Scope Withdrawal Time: 0 hours 6 minutes 6 seconds Scope In: 12:13:45 PM Scope Out: 12:23:32 PM Endoscopy Department at [address] [address] Result [facility] Chloe Hinson DO GI~PROCEDURE ORDERABLES Final Re sult * Cervical Cancer Screening: HPV (01/13/2023) [facility] Cervical Cancer Screening: HPV abstracted, negative Result [facility] Provider HEALTH MAINTENANCE Final Result * Hemoglobin A1c (06/17/2021) [facility] Hemoglobin A1C 6.1 <=6.5 % Blood Venous blood specimen / Unknown Result [facility] Provider LAB BLOOD ORDERABLES Cecilia l Result * Lipid panel (03/15/2020) [facility] LDL/HDL Ratio 3 0 - 4 Triglycerides 92 0 - 150 mg/dL Cholesterol 154 0 - 200 mg/dL HDL 47 >=40 mg/dL LDL Cholesterol 89 0 - 100 mg/dL Blood Venous blood specimen / Unknown Result [facility] Historical Provider LAB BLOOD ORDERABLES Cecilia l Result * Urine Albumin Creatinine Ratio (07/21/2018) Pathologist [facility] Urine Albumin Creatinine Ratio abstracted Result [facility] Provider HEALTH MAINTENANCE Final Result from Last 3 Months or Most Recently Relevant to Health Maintenance Insurance [employer] MED[employer] Member Subscriber Plan / Payer (Ef fective 2021-Present) Name:Kalpesh Chapmanmagdaleno Relation to Subscriber:Self Name:Alina Chapman Payer ID:[id number] Group ID:[id number] Type:Not on file Address: [facility] [address] [address] MEDICA[place] Care Teams Unionmelt Operator Relationship Specialty Start Date End Date Mily Gordon MD [address] [facility] , [address] [facility] D/B/A: [facility] CHAPO Bell PCP - General 02/09/24
== END 2025-03-08 08:22 | disposition home or self-care (01) ==
LOC: HO.XRAY 08:21
PROVIDERS: PCP Internal Medicine; Visit Provider Internal Medicine
DX: M54.2 Cervicalgia (principal)
CPT/HCPCS: 72040

== ENCOUNTER → 2025-03-08 08:25 | Outpatient (BNV) | payer OTHER, SELFPAY | PROVIDERS: PCP Internal Medicine; Visit Provider Radiology Diagnostic Radiology | DX: M50.322 Other cervical disc degeneration at C5-C6 level (principal) | CPT/HCPCS: 72040 ==

== ENCOUNTER 2025-03-22 09:46 | Outpatient (AMB) | payer OTHER, SELFPAY ==
--- NOTE | 2025-03-22 09:48 | AM.OFFVISNUR ---
Intake Visit Reasons: B12 Allergies morphine Adverse Reaction (Severe, Verified 01/23/25 08:18) Rash levothyroxine Adverse Reaction (Intermediate, Verified 01/23/25 08:18) Headache Office Meds cyanocobalamin (vitamin B-12) 1,000 mcg/mL injection solution Performing Provider: Mily Gordon MD Performing Location: [facility] Administered by: Latisha Braswell RN on 03/22/25 09:48 Dose Route Admin Location Dispensed Lot Number Expiration Date [facility] Wildlife Ecology Professor 1,000 mcg IM 1 mL [id number] 05/10/27 74991-495-51 DARIANA PAYNE Total Dispensed Waste 1 mL 0 % Assessment & Plan Assessment & Plan Orders: Orders AMB Vitamin B12 Injection Patient Supplied Today E53.8 - Deficiency of other specified B group vitamins Coding
--- OUTSIDE RECORDS SUMMARY | 2025-03-22 11:09 | XMS_ITS | Clinical Summary ---
Author Organization [facility] Address [address] [place] [address] Phone Care Team Providers Care Dresser Tender Name Role Phone Mily Gordon MD Primary Care Provider [phone] Allergies Active Allergy Reactions Criticality Noted Date [...] daily. 03/06/20 Active medical supply, miscellaneous (PILL TITLE I ASSISTANT AND CONTAINER MISC) MISC. DEVICES (PILL TITLE I ASSISTANT) MISC 1 Device by Does not apply route Once. 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 BREAST DENSITY: B - There are scattered areas of fibroglandular density. BI-RADS CATEGORY: 1 - NEGATIVE RECOMMENDATION: Mammography: Screening bilateral mammogram is recommended in 1 year. Mammo Location: [facility], [address] [place] [address], [phone], . -------- FINAL REPORT -------- Dictated By: Gary Dao Dictated Date: 04/21/2024 09:45 ET Assigned Physician: Gary Dao Reviewed and Electronically Signed By: Gary Dao Signed Date: 04/21/2024 09:50 ET Workstation ID: [id number] Transcribed By: Self Edit Transcribed Date: 04/21/2024 [...] is recommended in 1 year. Mammo Location: [facility], [address] [place] [address], [id number], . -------- FINAL REPORT -------- Dictated By: Gary Dao Dictated Date: 04/21/2024 09:45 ET Assigned Physician: Gary Dao Reviewed and Electronically Signed By: Gary Dao Signed Date: 04/21/2024 09:50 ET Workstation ID: [id number] Transcribed By: Self Edit Transcribed Date: 04/21/2024 09:45 ET Mily Gordon MD IMG BI PROCEDURES Final Result * COLONOSCOPY Anesthesia - MAC; [facility] (03/16/2024 12:25 PM EST) Anatomical Region Laterality Modality Endoscopy 03/16/2024 12:1 0 PM EST Narrative 03/16/2024 12:25 PM EST [facility] GI Patient Name: Alina Moody Procedure Date: 03/16/2024 12:10 PM Date of : 1975 Age: 48 Room: ROOM 16 Gender: Female Note Status: Finalized Attending MD: Chloe Hinson DO, [id number] Procedure Date No Time: 03/16/2024 Procedure: Colonoscopy [...] the physician, the nurse, the anesthesiologist, the graphic technician and the robotic weld technician in the pre-procedure area in the [...] malignant neoplasm of colon CPT copyright 2020 [employer]. All rights reserved. The codes documented in this report are preliminary and upon linux server engineer review may be revised to meet current compliance requirements. CHLOE HINSON Chloe Hinson DO 03/16/2024 12:25:36 PM This report has been signed electronically.Chloe Hinson DO Number of Addenda: 0 Note Initiated On: 03/16/2024 12:10 PM Scope Withdrawal Time: 0 hours 6 minutes 6 seconds Scope In: 12:13:45 PM Scope Out: 12:23:32 PM Endoscopy Department at [address] [address] Procedure Note Chloe Hinson DO - 03/16/2024 [facility] GI Patient Name: Alina Moody Procedure Date: 03/16/2024 12:10 PM Date of : 1975 Age: 48 Room: ROOM 16 Gender: Female Note Status: Finalized Attending MD: Chloe Hinson DO,[id number] Procedure Date No Time: 03/16/2024 Procedure: Colonoscopy [...] the physician, the nurse, the anesthesiologist, the graphic technician and thetechnician in the pre-procedure area in [...] for malignantneoplasm of colon CPT copyright 2020 [employer]. All rights reserved. The codes documented in this report are preliminary and upon linux server engineer reviewmay be revised to meet current compliance requirements. CHLOE HINSON Chloe Hinson DO 03/16/2024 12:25:36 PM This report has been signed electronically.Chloe Hinson DO Number of Addenda: 0 Note Initiated On: 03/16/2024 12:10 PM Scope Withdrawal Time: 0 hours 6 minutes 6 seconds Scope In: 12:13:45 PM Scope Out: 12:23:32 PM Endoscopy Department at [address] [address] Result [facility] Chloe Hinson DO GI~PROCEDURE ORDERABLES Final Re sult * Cervical Cancer Screening: HPV (01/13/2023) [facility] Cervical Cancer Screening: HPV abstracted, negative Result [facility] Provider HEALTH MAINTENANCE Final Result * Hemoglobin A1c (06/17/2021) [facility] Hemoglobin A1C 6.1 <=6.5 % Blood Venous blood specimen / Unknown Result [facility] Provider LAB BLOOD ORDERABLES Cecilia l Result * Lipid panel (03/15/2020) [facility] LDL/HDL Ratio 3 0 - 4 Triglycerides 92 0 - 150 mg/dL Cholesterol 154 0 - 200 mg/dL HDL 47 >=40 mg/dL LDL Cholesterol 89 0 - 100 mg/dL Blood Venous blood specimen / Unknown Result [facility] Historical Provider LAB BLOOD ORDERABLES Cecilia l Result * Urine Albumin Creatinine Ratio (07/21/2018) Pathologist [facility] Urine Albumin Creatinine Ratio abstracted Result [facility] Provider HEALTH MAINTENANCE Final Result from Last 3 Months or Most Recently Relevant to Health Maintenance Insurance [employer] MEDICARE Member Subscriber Plan / Payer (Ef fective 2021-Present) Name:Kalpesh Chapmanmagdaleno Relation to Subscriber:Self Name:Alina Chapman Payer ID:[id number] Group ID:[id number] Type:Not on file Address: [facility] [address] [id number] MEDICA[place] - [place] Care Teams Dresser Tender Relationship Specialty Start Date End Date Mily Gordon MD [address] [facility] , [address] [facility] Physician Associ D/B/A: [facility] [place] PCP - General 02/09/24
== END 2025-03-22 09:56 | disposition home or self-care (01) ==
LOC: HO.HMCH 09:47
PROVIDERS: PCP Internal Medicine; Visit Provider Internal Medicine
DX: E53.8 Deficiency of other specified B group vitamins (principal)

== ENCOUNTER → 2025-03-22 09:46 | Outpatient (BNVA) | payer OTHER, SELFPAY | PROVIDERS: PCP Internal Medicine; Visit Provider Internal Medicine | DX: E53.8 Deficiency of other specified B group vitamins (principal) | CPT/HCPCS: 96372; J3420 ==

== ENCOUNTER 2025-04-28 09:04 | Outpatient (AMB) | payer OTHER, SELFPAY ==
--- NOTE | 2025-04-28 09:15 | AM.OFFVISNUR ---
Intake Visit Reasons: B-12 Allergies morphine Adverse Reaction (Severe, Verified 01/23/25 08:18) Rash levothyroxine Adverse Reaction (Intermediate, Verified 01/23/25 08:18) Headache Office Meds cyanocobalamin (vitamin B-12) 1,000 mcg/mL injection solution Performing Provider: Mily Gordon MD [facility] Administered by: Roxanne Yan LPN on 04/28/25 09:16 Dose Route Admin Location Dispensed Lot Number Expiration Date [facility] Assistant Analyst 1,000 mcg IM left buttock 1 mL [id number] 05/10/27 16794-861-16 [employer] Total Dispensed Waste 1 mL 0 % Assessment & Plan Assessment & Plan Orders: Orders AMB Vitamin B12 Injection Patient Supplied Today E53.8 - Deficiency of other specified B group vitamins Coding
--- OUTSIDE RECORDS SUMMARY | 2025-04-28 09:29 | XMS_ITS | Clinical Summary ---
Author Organization [facility] Address [address] [place] [address] Phone Care Team Providers Care Bi Lead Name Role Phone Mily Gordon MD Primary Care Provider [phone] Allergies Active Allergy Reactions Criticality Noted Date [...] daily. 03/06/20 Active medical supply, miscellaneous (PILL INTERMEDIATE CARD TENDER AND CONTAINER MISC) MISC. DEVICES (PILL INTERMEDIATE CARD TENDER) MISC 1 Device by Does not apply route Once. 02/15/20 Active incontinence pad, liner, disp pad INCONTINENCE SUPPLY DISPOSABLE ([facility] INCONTINENCE PADS) MISC 1 [...] History Surgery Date Site/Laterality Comments SECTION PROCEDURE: [place] DELIVERY ONLY; COMMENT: x3 CHOLECYSTECTOMY PROCEDURE: HISTORICAL [...] Tdap) 01/01/2026 01/02/2016 Breast Cancer Screening 04/21/2026 04/21/20 24, 03/25/2024, 03/19/2023, Additional history exists Cervical Cancer [...] Diagnosis Comments MG MAMMO DIGITAL DIAGNOSTIC W ELA LEFT Routine 04/21/2024 9:20 AM EST Abnormal mammogram COLONOSCOPY Routine 03/16/2024 12:25 PM EST Encounter for screening for malignant neoplasm of colon HM HPV Routine 01/13/2023 HEMOGLOBIN A1C Routine 06/17/2021 LIPID PANEL Routine 03/15/2020 HM URINE ALBUMIN CREATININE RATIO Routine 07/21/2018 from Last 3 Months or Most Recently Relevant to Health Maintenance Results * MG Mammo Digital Diagnostic w Ela Left (04/21/2024 9:20 AM EST) Anatomical Region Laterality Modality Breast Left Mammography 04/21/2024 9:45 AM EST Impressions 04/21/2024 9:50 AM EST LEFT BREAST: Negative, no evidence of malignancy. Normal interval follow-up is recommended in 12 months. Findings and recommendations were conveyed to the patient via health information technologist. BREAST DENSITY: B - There are scattered areas of fibroglandular density. BI-RADS CATEGORY: 1 - NEGATIVE RECOMMENDATION: Mammography: Screening bilateral mammogram is recommended in 1 year. Mammo Location: [facility], [address] [place] [address], [address], . -------- FINAL REPORT -------- Dictated By: Gary Dao Dictated Date: 04/21/2024 09:45 ET Assigned Physician: Gary Dao Reviewed and Electronically Signed By: Gary Dao Signed Date: 04/21/2024 09:50 ET Workstation ID: [id number] Transcribed By: Self Edit Transcribed Date: 04/21/2024 [...] frommultiple prior studies as far back as 2019. IMPRESSION: LEFT BREAST: Negative, no evidence of malignancy. Normal intervalfollow-up is recommended in 12 months. Findings and recommendations were conveyed to the patient via mammographytechnologist. BREAST DENSITY: B - There are scattered areas of fibroglandular density. BI-RADS CATEGORY: 1 - NEGATIVE RECOMMENDATION: Mammography: Screening bilateral mammogram is recommended in 1 year. Mammo Location: [facility], [address] [place] [address], [address], . -------- FINAL REPORT -------- Dictated By: Gary Dao Dictated Date: 04/21/2024 09:45 ET Assigned Physician: Gary Dao Reviewed and Electronically Signed By: Gary Dao Signed Date: 04/21/2024 09:50 ET Workstation ID: [id number] Transcribed By: Self Edit Transcribed Date: 04/21/2024 09:45 ET Mily Gordon MD IMG BI PROCEDURES Final Result * COLONOSCOPY Anesthesia - MAC; [facility] ENDOSCOPY (03/16/2024 12:25 PM EST) Anatomical Region Laterality Modality Endoscopy 03/16/2024 12:1 0 PM EST Narrative 03/16/2024 12:25 PM EST [facility] GI Patient Name: Alina Moody Procedure Date: 03/16/2024 12:10 PM Date of : 1975 Age: 48 Room: ROOM 16 Gender: Female Note Status: Finalized Attending MD: Chloe Hinson DO, [id number] Procedure Date No Time: 03/16/2024 Procedure: Colonoscopy [...] the physician, the nurse, the anesthesiologist, the vice president underwriting and the senior pharmacy technician in the pre-procedure area in the [...] malignant neoplasm of colon CPT copyright 2020 [employer]. All rights reserved. The codes documented in this report are preliminary and upon career development counselor review may be revised to meet current compliance requirements. CHLOE HINSON Chloe Hinson DO 03/16/2024 12:25:36 PM This report has been signed electronically.Chloe Hinson DO Number of Addenda: 0 Note Initiated On: 03/16/2024 12:10 PM Scope Withdrawal Time: 0 hours 6 minutes 6 seconds Scope In: 12:13:45 PM Scope Out: 12:23:32 PM Endoscopy Department at [address] [address] Procedure Note Chloe Hinson DO - 03/16/2024 [facility] GI Patient Name: Alina Moody Procedure Date: 03/16/2024 12:10 PM Date of : 1975 Age: 48 Room: ROOM 16 Gender: Female Note Status: Finalized Attending MD: Chloe Hinson DO,[id number] Procedure Date No Time: 03/16/2024 Procedure: Colonoscopy [...] the physician, the nurse, the anesthesiologist, the vice president underwriting and thetechnician in the pre-procedure area in [...] for malignantneoplasm of colon CPT copyright 2020 [employer]. All rights reserved. The codes documented in this report are preliminary and upon career development counselor reviewmay be revised to meet current compliance requirements. CHLOE HINSON Chloe Hinson DO 03/16/2024 12:25:36 PM This report has been signed electronically.Chloe Hinson DO Number of Addenda: 0 Note Initiated On: 03/16/2024 12:10 PM Scope Withdrawal Time: 0 hours 6 minutes 6 seconds Scope In: 12:13:45 PM Scope Out: 12:23:32 PM Endoscopy Department at [address] [address] Result [facility] Chloe Hinson DO GI~PROCEDURE ORDERABLES Final Re sult * Cervical Cancer Screening: HPV (01/13/2023) [facility] Cervical Cancer Screening: HPV abstracted, negative Result [facility] Provider HEALTH MAINTENANCE Final Result * Hemoglobin A1c (06/17/2021) [facility] Hemoglobin A1C 6.1 <=6.5 % Blood Venous blood specimen / Unknown Result [facility] Provider LAB BLOOD ORDERABLES Cecilia l Result * Lipid panel (03/15/2020) [facility] LDL/HDL Ratio 3 0 - 4 Triglycerides 92 0 - 150 mg/dL Cholesterol 154 0 - 200 mg/dL HDL 47 >=40 mg/dL LDL Cholesterol 89 0 - 100 mg/dL Blood Venous blood specimen / Unknown Result [facility] Provider LAB BLOOD ORDERABLES Cecilia l Result * Urine Albumin Creatinine Ratio (07/21/2018) [facility] Urine Albumin Creatinine Ratio abstracted Result [facility] Provider HEALTH MAINTENANCE Final Result from Last 3 Months or Most Recently Relevant to Health Maintenance Insurance [employer] MEDICARE Member Subscriber Plan / Payer (Ef fective 2021-Present) Name:Alina Chapman Relation to Subscriber:Self Name:Alina Chapman Payer ID:[id number] Group ID:[id number] Type:Not on file Address: [facility] [address] [id number] MEDICAID - [place] Care Teams Bi Lead Relationship Specialty Start Date End Date Mily Gordon MD [address] [place] [address] , [address] [facility] Physician Associ D/B/A: [facility] [place] PCP - General 02/09/24
== END 2025-04-28 09:18 | disposition home or self-care (01) ==
LOC: HO.HMCH 09:04
PROVIDERS: PCP Internal Medicine; Visit Provider Internal Medicine
DX: E53.8 Deficiency of other specified B group vitamins (principal)

== ENCOUNTER → 2025-04-28 09:04 | Outpatient (BNVA) | payer OTHER, SELFPAY | PROVIDERS: PCP Internal Medicine; Visit Provider Internal Medicine | DX: E53.8 Deficiency of other specified B group vitamins (principal) | CPT/HCPCS: 96372; J3420 ==